=== PATIENT | female | born 1940 | race Caucasian/White ===

== ENCOUNTER → 2017-01-07 | Outpatient (CLI) | payer MEDICARE, OTHER ==
[2016-06-17 11:00] VITALS: BP 161/37
[~2017-01-07] MED LIST: ALBU1.25 IH; ALPR0.257 PO; AMLO5TAB2 PO; ASPI-482 PO; ATOR10TA60 PO; AZIT250T6 PO; CLOP75TA27 PO; Cefpodoxime Proxetil PO; DIPH25CA58 PO; DOXY100T PO; FURO20TA3 PO; FURO40TA4 PO; LEVO250T25 PO; LEVO750T31 PO; LISI-334 PO; METO25TA4 PO; PRED-220 PO; PRED5DRO6 OP; PRED5TAB PO; ROFL500T PO; SPIR25TA3 PO; TIOT18CA IH; VERA120C2 PO; VERA240C2 PO
--- NOTE | 2017-01-07 15:23 | RAD ---
Indication follow-up lung nodules. Noncontrast images of the chest were obtained and are compared to a study 07/30/2016. There are underlying emphysematous changes. There are occasional scattered calcified granulomas. Scattered areas of pleural-parenchymal scarring are seen similar to the previous exam. There is a soft tissue nodule, immediately adjacent to a calcification in the right upper lobe, image 108 series 3, measuring maximally approximately 11 mm in greatest dimension and is unchanged relative to the previous study. A tiny nodule, posterior medially in the right lower lobe measuring approximately 2 mm, image 234, is also unchanged. A new pulmonary nodule is not seen. No acute finding is apparent in the chest. Heavy atherosclerotic plaquing of the thoracic aorta is noted. There is no significant hilar or mediastinal adenopathy. Some coronary artery calcification is noted. Imaging through the upper abdomen demonstrates a right renal calculus. There is dilatation of the visualized upper abdominal aorta. It is dilated maximally to approximately 3.7 cm. It appears to have increased in size by approximately 2 to 3 mm relative to an examination 01/05/2015. IMPRESSION: Chronic changes in the chest. No acute finding seen. Stable pulmonary nodules in the right upper and right lower lobes. Continued surveillance imaging advised. Enlargement of the upper abdominal aorta to approximately 3.7 cm representing a slight increase when compared to a study 2 years ago. Right renal calculus PQRS Compliance Statement: One or more of the following individualized dose reduction techniques were utilized for this examination: 1. Automated exposure control 2. Adjustment of the mA and/or kV according to patient size 3. Use of iterative reconstruction technique
== END | disposition home or self-care (01) ==
LOC: CT 10:10
PROVIDERS: ATTEND Internal Medicine Pulmonary Disease
DX: R91.1 Solitary pulmonary nodule (principal); N20.0 Calculus of kidney
CPT/HCPCS: 71250

== ENCOUNTER 2017-03-03 05:55 | Inpatient (IN) | payer OTHER ==
[~2017-03-03] VITALS: Ht 152.4 cm; Wt 49.6 kg
[~2017-03-03 05:55] MED LIST changes: -ROFL500T PO; +ROFL500T7 PO
[2017-03-03] MEDS ORDERED: CONTRAST GIVEN MC PRN (06:30)
[2017-03-03] MEDS ORDERED: IV NORMAL SALINE 500ML BAG 500 ML IV ONE (06:30)
[2017-03-03] MEDS ORDERED: ONDANSETRON PF 4 MG/2 ML VIAL. IV ONE (06:30)
[2017-03-03 06:34] LABS: BASO # 0.1 x10^3/uL (0.0-0.2); BASO % 1 % (0-3); EOS % 1 % (0-3); HEMATOCRIT 32.1 % (36.0-47.0); HEMOGLOBIN 10.7 g/dL (12.0-15.5); LYMPH # 1.8 x10^3/uL (1.0-4.8); LYMPH % 17 % (24-48); MEAN CORPUSCULAR HEMOGLOBIN 30 pg (25-35); MEAN CORPUSCULAR HGB CONC 33 g/dL (31-37); MEAN CORPUSCULAR VOLUME 91 fL (79-100); MONO % 9 % (0-9); NEUT % 73 % (31-73); PLATELET COUNT 447 x10^3/uL (140-400); RED BLOOD COUNT 3.54 x10^6/uL (3.50-5.40); RED CELL DISTRIBUTION WIDTH 16.2 % (11.5-14.5); WHITE BLOOD COUNT 10.7 x10^3/uL (4.0-11.0)
[2017-03-03] MEDS: fentaNYL PF VIAL 100 MCG/2 ML VIAL IV PRN ×7 (06:40→18:01)
[2017-03-03 06:45] LABS: CALCIUM 8.6 mg/dL (8.5-10.1); CREATININE 0.8 mg/dL (0.6-1.0); GFR 69.6; POTASSIUM 3.4 mmol/L (3.5-5.1)
[2017-03-03 06:58] LABS: TOTAL BILIRUBIN 0.4 mg/dL (0.2-1.0)
[2017-03-03] MEDS ORDERED: IOHEXOL 300 MG/ML 75 ML VIAL IV ONE (07:00)
--- NOTE | 2017-03-03 07:12 | ED.ADGEN ---
Past Medical History Past Medical History: Arrhythmia, CAD, COPD, DVT, Hypertension, CO, Pneumonia, Other Additional Past Medical Histor: "rapid heart beat", SVT, macular degeneration, cataracts Past Surgical History: Hysterectomy, Other Additional Past Surgical Histo: cardiac cath, cardiac stent Additional Information: 10/11 PPD Alcohol Use: None Drug Use: None Adult General Chief Complaint Chief Complaint: ABDOMINAL PAIN HPI HPI Patient is a 76 year old W, hx CAD s/p CO, HTN, DVT, p/w c/o back pain and right-sided abd pain x 3 days, cramping, constipation x 5 days w/ nauseas. No vomting, no f/c, no diarrhea,, no focal w/n/t, no CP, SOB. No injuries, no travel or surgery. Poor intake. No prior symptoms. No complaints. Review of Systems Review of Systems Constitutional: Denies fever or chills. [] Eyes: Denies change in visual acuity. [] HENT: Denies nasal congestion or sore throat. [] Respiratory: Denies cough or shortness of breath. [] Cardiovascular: Denies chest pain or edema. [] GI: Back, abd pain, nausea. No diarrhea. : Denies dysuria. [] Musculoskeletal: Denies back pain or joint pain. [] Integument: Denies rash. [] Neurologic: Denies headache, focal weakness or sensory changes. [] Endocrine: Denies polyuria or polydipsia. [] Lymphatic: Denies swollen glands. [] Psychiatric: Denies depression or anxiety. [] Current Medications Current Medications Current Medications Medications (Trade) Dose Ordered Sig/Shaina Start Time Stop Time Status Last Admin Dose Admin Acetaminophen (Tylenol) 650 mg PRN Q4HRS PRN 03/03/17 10:30 03/04/17 10:29 Ceftriaxone Sodium 1 gm/ Sodium Chloride 50 ml @ 100 mls/hr Q24H 03/04/17 11:00 Ceftriaxone Sodium 50 ml @ 100 mls/hr 1X ONCE 03/03/17 10:15 03/03/17 10:44 DC 03/03/17 10:19 100 MLS/HR Diphenhydramine HCl (Benadryl) 25 mg 1X ONCE 03/03/17 10:15 03/03/17 10:20 DC 03/03/17 10:19 25 MG Fentanyl Citrate (Fentanyl 2ml Vial) 50 mcg PRN Q1HR PRN 03/03/17 10:30 03/04/17 10:29 Info (Do NOT chart on this entry -- for MONITORING) 1 each PRN DAILY PRN 03/03/17 06:30 03/05/17 06:29 Iohexol (Omnipaque 300 Mg/ml) 75 ml 1X ONCE 03/03/17 07:00 03/03/17 07:01 DC 03/03/17 07:01 75 ML Metoprolol Tartrate (Lopressor) 5 mg 1X ONCE 03/03/17 08:00 03/03/17 08:01 DC 03/03/17 08:10 5 MG Ondansetron HCl (Zofran) 4 mg PRN Q8HRS PRN 03/03/17 10:30 03/04/17 10:29 Sodium Chloride 500 ml @ 500 mls/hr 1X ONCE 03/03/17 06:30 03/03/17 07:29 DC 03/03/17 06:40 500 MLS/HR Allergies Allergies Allergies Coded Allergies Type Severity Reaction Last Updated Verified Sulfa (Sulfonamide Antibiotics) Allergy Intermediate 01/05/15 Yes cephalexin Allergy Intermediate Itching 06/17/16 Yes clarithromycin Allergy Intermediate 01/05/15 Yes levofloxacin Allergy Intermediate Itching 06/17/16 Yes Physical Exam Physical Exam Constitutional: Well developed, well nourished, uncomfortable, non-toxic appearance. [] HENT: Normocephalic, atraumatic, bilateral external ears normal, oropharynx moist, no oral exudates, nose normal. [] Eyes: PERRLA, EOMI, conjunctiva normal, no discharge. [] Neck: Normal range of motion, no tenderness, supple, no stridor. [] Cardiovascular:Heart rate regular rhythm, no murmur, S1, S2, no m/r/g. [] Lungs & Thorax: Bilateral breath sounds clear to auscultation, no w/r/r, no crepitus or TTP. [] Abdomen: Bowel sounds diminished, soft, TTP right abd, no r/r/g, no masses, no pulsatile masses. [] Skin: Warm, dry, no erythema, no rash. [] Back: No tenderness, no CVA tenderness. [] Extremities: No tenderness, no cyanosis, no clubbing, ROM intact, no edema. [] Neurologic: Alert and oriented X 3, normal motor function, normal sensory function, no focal deficits noted. [] Psychologic: Affect normal, judgement normal, mood normal. [] Current Patient Data Vital Signs Vital Signs Date Time Temp Pulse Resp B/P (MAP) Pulse Ox O2 Delivery O2 Flow Rate FiO2 03/03/17 09:20 16 03/03/17 08:10 86 224/105 03/03/17 06:24 98.1 95 Nasal Cannula 3.0 98.1 Lab Values Laboratory Tests Test 03/03/17 06:12 03/03/17 08:20 White Blood Count 10.7 x10^3/uL (4.0-11.0) Red Blood Count 3.54 x10^6/uL (3.50-5.40) Hemoglobin 10.7 g/dL (12.0-15.5) L Hematocrit 32.1 % (36.0-47.0) L Mean Corpuscular Volume 91 fL (79-100) Mean Corpuscular Hemoglobin 30 pg (25-35) Mean Corpuscular Hemoglobin Concent 33 g/dL (31-37) Red Cell Distribution Width 16.2 % (11.5-14.5) H Platelet Count 447 x10^3/uL (140-400) H Neutrophils (%) (Auto) 73 % (31-73) Lymphocytes (%) (Auto) 17 % (24-48) L Monocytes (%) (Auto) 9 % (0-9) Eosinophils (%) (Auto) 1 % (0-3) Basophils (%) (Auto) 1 % (0-3) Neutrophils # (Auto) 7.8 x10^3uL (1.8-7.7) H Lymphocytes # (Auto) 1.8 x10^3/uL (1.0-4.8) Monocytes # (Auto) 0.9 x10^3/uL (0.0-1.1) Eosinophils # (Auto) 0.1 x10^3/uL (0.0-0.7) Basophils # (Auto) 0.1 x10^3/uL (0.0-0.2) Sodium Level 141 mmol/L (136-145) Potassium Level 3.4 mmol/L (3.5-5.1) L Chloride Level 101 mmol/L (98-107) Carbon Dioxide Level 33 mmol/L (21-32) H Anion Gap 7 (6-14) Blood Urea Nitrogen 18 mg/dL (7-20) Creatinine 0.8 mg/dL (0.6-1.0) Estimated GFR (Cockcroft-Gault) 69.6 BUN/Creatinine Ratio 23 (6-20) H Glucose Level 111 mg/dL (70-99) H Lactic Acid Level 1.2 mmol/L (0.4-2.0) Calcium Level 8.6 mg/dL (8.5-10.1) Total Bilirubin 0.4 mg/dL (0.2-1.0) Aspartate Amino Transferase (AST) 23 U/L (15-37) Alanine Aminotransferase (ALT) 28 U/L (14-59) Alkaline Phosphatase 96 U/L (46-116) Troponin I Quantitative < 0.017 ng/mL (0.000-0.055) BR-Urd-Y-Type Natriuretic Peptide 379 pg/mL (0-449) Total Protein 6.0 g/dL (6.4-8.2) L Albumin 3.0 g/dL (3.4-5.0) L Albumin/Globulin Ratio 1.0 (1.0-1.7) Lipase 169 U/L (73-393) Urine Collection Type Unknown Urine Color Yellow Urine Clarity Clear Urine pH 7.5 Urine Specific [place] >=1.030 Urine Protein 100 mg/dL (NEG-TRACE) Urine Glucose (UA) Negative mg/dL (NEG) Urine Ketones (Stick) Negative mg/dL (NEG) Urine Blood Negative (NEG) Urine Nitrite Negative (NEG) Urine Bilirubin Negative (NEG) Urine Urobilinogen Dipstick 0.2 mg/dL (0.2 mg/dL) Urine Leukocyte Esterase Moderate (NEG) Urine RBC Occ /HPF (0-2) Urine WBC 20-40 /HPF (0-4) Urine Squamous Epithelial Cells Mod /LPF Urine Bacteria Few /HPF (0-FEW) Urine Hyaline Casts Few /HPF Urine Mucus Slight /LPF Laboratory Tests 03/03/17 06:12 Laboratory Tests 03/03/17 06:12 EKG EKG EC: Sinus, 79 bmp, QTC 428, QRS 78, OR 150, baseline artifact, contour abnormalities in inf leads. Abnormal ECG, no STEMI. As interp by me. Radiology/Procedures Radiology/Procedures [][facility] [address] [place] [address] IMAGING REPORT Signed PATIENT: HIWOT NAVARRO ACCOUNT: [id number] : 1940 LOCATION: ER AGE: 76 SEX: F EXAM STATUS: REG ER ORD. PHYSICIAN: REMINGTON CLEMENTE DO REASON: abd pain PROCEDURE: CT ABD PELV W/ IV CONTRST ONLY Indication abdominal pain. Axial images through the abdomen and pelvis were obtained. Approximately 75 cc of Omnipaque 300 was administered intravenously. No oral contrast was administered. Note is made of a previous examination 11/23/2012. The lung bases are clear. There is a small left umbilical hernia containing only fat and appearing uncomplicated. The liver and spleen appear unremarkable and the gallbladder appears grossly normal. There is unchanged enlargement of the left adrenal gland. Acute finding is not seen involving either kidney. A left renal cyst is noted. There is an infrarenal abdominal aortic aneurysm measuring 4 cm in greatest dimension. The aneurysm has increased in size by approximately 6 mm relative to the previous exam. The pancreas appears unremarkable. An acute finding in the abdomen is not seen. Occasional diverticula are seen associated with the large bowel. Active inflammation is not seen. Acute finding in the pelvis is not apparent. IMPRESSION: No acute finding seen in the abdomen or pelvis. 4 cm abdominal aortic aneurysm DICTATED and SIGNED BY: PAPO MATHEW MD DATE: 03/03/17719 CC: REMINGTON CLEMENTE DO; LEILANI DELUCA Jr, MD ~ Course & Med Decision Making Course & Med Decision Making Pertinent Labs and Imaging studies reviewed. (See chart for details) Patient required multiple doses of medication for abdominal pain in the emergency department, nausea improved after a dose of Zofran. CT imaging not reveal any evidence of acutely concerning findings, however this patient's pain has persisted, after reevaluation, although her laboratory studies and imaging did not reveal any concerning findings, patient is agreeable for admission to the hospital for continued management. Patient with few bacteria noted in the urine, 2040 WBCs, no recent antibiotic use, therefore will treat with IV antibiotics, continue clear liquid diet. Patient agreeable with plan, as is at bedside, findings as above discussed with Dr. Schofield of internal medicine, patient accepted to his service as a full admission to the medical telemetry floor with monitoring, symptom management, and repeat laboratory studies as stated. Dragon Disclaimer Dragon Disclaimer This electronic medical record was generated, in whole or in part, using a voice recognition dictation system. Departure Impression: Primary Impression: Abdominal pain Disposition: ADMITTED INPATIENT Admitting Physician: Nancy Schofield Condition: IMPROVED REMINGTON CLEMENTE DO March 03, 2017 07:12
--- NOTE | 2017-03-03 07:32 | RAD ---
Indication abdominal pain. Axial images through the abdomen and pelvis were obtained. Approximately 75 cc of Omnipaque 300 was administered intravenously. No oral contrast was administered. Note is made of a previous examination 11/23/2012. The lung bases are clear. There is a small left umbilical hernia containing only fat and appearing uncomplicated. The liver and spleen appear unremarkable and the gallbladder appears grossly normal. There is unchanged enlargement of the left adrenal gland. Acute finding is not seen involving either kidney. A left renal cyst is noted. There is an infrarenal abdominal aortic aneurysm measuring 4 cm in greatest dimension. The aneurysm has increased in size by approximately 6 mm relative to the previous exam. The pancreas appears unremarkable. An acute finding in the abdomen is not seen. Occasional diverticula are seen associated with the large bowel. Active inflammation is not seen. Acute finding in the pelvis is not apparent. IMPRESSION: No acute finding seen in the abdomen or pelvis. 4 cm abdominal aortic aneurysm
--- NOTE | 2017-03-03 07:37 | RAD ---
Indication abdominal pain. A single view of the chest as well as flat and upright films of the abdomen were obtained. The chest is compared to a study 06/11/2016. The heart and pulmonary vessels appear normal. The lungs are clear. There is no significant pleural fluid or pneumothorax. There is no free air. The abdominal gas pattern is normal. Vascular calcification is noted. An acute finding in the abdomen is not apparent on plain films. IMPRESSION: No acute finding seen in the chest or abdomen on plain films
--- NOTE | 2017-03-03 07:53 | EKG ---
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
[2017-03-03] MEDS ORDERED: METOPROLOL TARTRATE 5 MG/5 ML VIAL. IVP ONE (08:00)
--- NOTE | 2017-03-03 08:08 | ACF ---
Admission Forms Criteria ABDOMINAL PAIN Clinical Indications for Admission to Inpatient Care (Place 'X' for any and all applicable criteria): Admission is indicated for ANY ONE of the following(1)(2)(3)(4)(5): [ ]I. Inpatient admission required rather than observation care (Also use Abdominal Pain: Observation Care, as appropriate) because of ANY ONE of the following: [ ]a) Severe pain requiring acute inpatient management [ ]b) Identification of etiology/finding that requires inpatient care (eg, aortic dissection, free air) [ ]c) Absent bowel sounds with complete ileus(6) [ ]d) Suspected toxic megacolon [ ]e) Severe electrolyte abnormalities requiring inpatient care [ ]f) High fever or infection requiring inpatient admission as indicated by ANY ONE of following(7)(8): [ ] i) Appropriate outpatient or observational care antimicrobial treatment unavailable, not effective, or not feasible [ ] ii) Documented bacteremia [ ] iii) Temperature > 104.9 degrees F (oral) [ ] iv) T >103.1 F (oral) or < 96.8 F(rectal) that does not respond to all emergency treatment measures [ ]g) Signs of intestinal obstruction [B] [ ]h) Hemodynamic instability [ ]i) IV fluid to replace significant ongoing losses (greater than 3 L/m2 per day) (12)(13) [ ]j) Percutaneous or open drainage (eg, abscess, biliary tract ) procedures [ ]k) Parenteral nutrition regimen that must be implemented on inpatient basis [ ]l) Other condition,treatment or monitoring requiring inpatient admission. [ ]II. Peritoneal signs present [ ]III. Surgery needed that cannot be performed on an ambulatory basis. [ ]IV. Evaluation requires patient to not eat or drink for extended period ( eg, more than 24 hours). [ ]V. Contraindications and/or Inappropriate clinical situations for Observational Care in patients with abdominal pain, when ANY ONE of the following is required: [ ]a) Thorough evaluation is required to prevent catastrophic events due to delays in diagnosing (e.g.Mesenteric ischemia) 1,3 [ ]b) Patient with severe pathology or with chronic symptoms unlikely to improve in the ED stay (3) [X]. General contraindications and/or Inappropriate clinical situations for Observational Care in patients with abdominal pain, when ANY ONE of the following is required: [ ]a) Prediction of prolongation of LOS based on ANY ONE of the following may be considered as a contraindication for observational care 2, 3, 4, 5, 6, 7, 8, 9, 10, 11 [ ]i) Age > 65 yrs. [ ]ii) Patient arriving by ambulance [ ]iii) Patient with high acuity [ ]iv) Patient requiring vital sign monitoring [ ]v) Patient on IV medication [X]b) Systolic blood pressures 180mmHg 3,12 [ ]c) Patient with altered mental status including delirium and other alteration of consciousness, (3) [ ]d) Patient whose discharge disposition will be to a halfway home or rehabilitation home should not be managed in Emergency Department Observation Unit. CMS rule requires 3 days hospital stay before such placement.3,13 [ ]e) Patient with failure to thrive due to broad array of etiologies 3,16,17 [ ]f) Inability to ambulate 3,14 Extended stay beyond goal length of stay may be needed for(2)(3): [ ]a) Persistent abdominal pain with suspected intra-abdominal process [ ]b) Diagnosed condition requiring continued stay (e.g., pancreatitis, complicated diverticulitis) [ ]c) Surgery (e.g., colectomy) The original [facility] content created by [employer] has been revised. The portions of the content which have been revised are identified through the use of italic text or in bold, and [facility] has neither reviewed nor approved the modified material.All other unmodified content is copyright [employer]. Please see references footnoted in the original [facility] edition 2016 Admission Criteria Met?: Yes ARIANA JACINTO March 03, 2017 08:08
[2017-03-03 08:35] LABS: BILIRUBIN,URINE NEGATIVE (NEG); GLUCOSE,URINE NEGATIVE (NEG); NITRITE,URINE NEGATIVE (NEG); PH,URINE 7.5; PROTEIN,URINE 100 mg/dL (NEG-TRACE); UROBILINOGEN,URINE 0.2 mg/dL (0.2 mg/dL)
[2017-03-03 09:01] LABS: BACTERIA,URINE FEW /HPF (0-FEW); RBC,URINE OCC /HPF (0-2); SQUAMOUS EPITHELIAL CELL,UR MOD /LPF; WBC,URINE 20-40 /HPF (0-4)
[2017-03-03] MEDS ORDERED: diphenhydrAMINE 50 MG/ML VIAL IVP ONE (10:15)
[2017-03-03] MEDS ORDERED: ACETAMINOPHEN 325 MG TABLET. PO PRN (10:30)
[2017-03-03] MEDS ORDERED: ONDANSETRON PF 4 MG/2 ML VIAL. IV PRN (10:30)
[2017-03-03 12:00] VITALS: BP 181/49
--- NOTE | 2017-03-03 12:00 | RAD ---
Right upper quadrant abdominal ultrasound, 03/03/2017: History: Right-sided abdominal pain The exam was partially compromised by patient difficulty in cooperation. The gallbladder contains several gallstones. The gallbladder wall is not thickened. The common hepatic duct is of normal caliber. No hepatic mass is identified. The visualized portions of the pancreas and right kidney are unremarkable. IMPRESSION: Cholelithiasis
--- NOTE | 2017-03-03 14:50 | HP ---
ADMIT DATE: 03/03/2017 CHIEF COMPLAINT: Abdominal pain. HISTORY OF PRESENT ILLNESS: The patient is a pleasant 76-year-old female who has abdominal pain that has been occurring for several days. It radiates to the back. She tried taking some home medications, but that was not working. She has also been constipated for 5 days. I discussed the case with the ER physician. We are going to admit the patient and consult Gastroenterology. She will be made n.p.o. PAST MEDICAL HISTORY: Arrhythmias, coronary artery disease, COPD, DVT, hypertension, myocardial infarction, pneumonia, SVT, macular degeneration, cataracts, hysterectomy, cardiac catheterization, and cardiac stents. ALLERGIES: SULFA, CLARITHROMYCIN, LEVAQUIN, AND CEPHALEXIN. FAMILY HISTORY: Coronary artery disease. SOCIAL HISTORY: She does not drink, smoke, or take drugs. MEDICATIONS: Reviewed. Please refer to the MRAD. REVIEW OF SYSTEMS: GENERAL: No history of weight change, weakness, or fevers. SKIN: No bruising, hair changes, or rashes. EYES: No blurred, double, or loss of vision. NOSE AND THROAT: No history of nosebleeds, hoarseness, or sore throat. HEART: No history of palpitations, chest pain, or shortness of breath on exertion. LUNGS: Denies cough, hemoptysis, wheezing, or shortness of breath. GASTROINTESTINAL: She complains of abdominal pain. GENITOURINARY: No history of frequency, urgency, hesitancy, or nocturia. NEUROLOGIC: Denies history of numbness, tingling, tremor, or weakness. PSYCHIATRIC: No history of panic, anxiety, or depression. ENDOCRINE: No history of heat or cold intolerance, polyuria, or polydipsia. EXTREMITIES: Denies muscle weakness, joint pain, pain on walking, or stiffness. PHYSICAL EXAMINATION: VITAL SIGNS: Temperature afebrile, pulse 67, respirations 18, and blood pressure 144/90. GENERAL: She is alert, cooperative, weak, complaining of pain. HEART: Normal S1, S2. LUNGS: Clear. ABDOMEN: Soft, decreased bowel sounds, tender in the epigastrium. EXTREMITIES: No edema. SKIN: No rashes. ENDOCRINE: No thyromegaly. LYMPHATICS: No cervical nodes. HEMATOPOIETIC: No bruising. LABORATORY DATA: White count 10, hemoglobin 10, and platelets 447. Electrolytes: Sodium 141, potassium 3.4, chloride 101, bicarbonate 33, BUN 18, creatinine 0.8, and glucose 111. Troponin is 0. Urinalysis: Moderate leukocyte esterase and 20 to 40 white cells. ASSESSMENT AND PLAN: Abdominal pain with an incidental finding of urinary tract infection. The patient has been admitted. We will give her IV fluids, IV antibiotics. Consult Gastroenterology. Continue home medicines, p.r.n. narcotics, and frequent labs. ANTON LEBRON DO DR: JOVANI/humble JOB#: [id number] / [id number]
[2017-03-03 15:00] VITALS: BP 170/63
--- NOTE | 2017-03-03 15:02 | PDOC2 ---
GI CONSULT Reason For Consult: Abd pain HPI: HPI: 76 y/o female who we were asked to see re: abd pain. She says she's having a hard time gathering her thoughts. She believes the pain, located mostly in the right lower abdomen, began awhile ago, but she attributed it to sciatic nerve pain. Additionally, she was constipated, took Miralax, and had a "blow out" on Tuesday w/ some improvement in her pain, but it worsened. She says she lost about 7 pounds as a result of stooling. No change in appetite. No n/v, no reflux/heartburn. No hematochezia or melena that she's aware of, although she is visually impaired. Reviewed our office records. She had a colonoscopy w/ Dr. Brannon in 2009 which revealed a 12mm adenomatous polyp in the transverse colon, three sessile (5mm, [id number], and 5mm) polyps in the hepatic flexure - pathology w/ tubular adenoma and sessile serrated polyp, and a 6mm hyperplastic polyp in the rectum. Additionally, sigmoid diverticulosis and Grade 1 internal hemorrhoids were noted. In 2013, she had an EGD and colonoscopy w/ Dr. Siddiqui. She reports both were normal; I cannot view these reports. No NSAIDs, takes Tylenol. H/o C Diff. Imaging as below w/ enlarging AAA and cholelithiasis. PMH: PMH: CAD w/ stent (off Plavix, on ASA), HTN, COPD, TIA, cervical cancer, hypothyroidism, fibrocystic breast disease, shingles, myeloproliferative disorder, colon polyps, C Diff, hysterectomy, bilateral oophorectomy, breast biopsy FH: Family History: No pertinent hx Social History: Smoke: <1 pack per day ALCOHOL: none Drugs: None ROS: GEN: Denies fevers, chills, sweats HEENT: +visually impaired CV: Denies chest pain RESP: +SOA GI: Per HPI : Denies hematuria, dysuria ENDO: +weight loss NEURO: Denies confusion, dizziness MSK: Denies weakness, joint pain/swelling SKIN: Denies jaundice, pruritus Vitals: Vitals: Vital Signs Date Time Temp Pulse Resp B/P (MAP) Pulse Ox O2 Delivery O2 Flow Rate FiO2 03/03/17 13:11 Nasal Cannula 03/03/17 12:00 63 20 181/49 (93) 98 4.0 03/03/17 06:24 98.1 98.1 Labs: Labs: Laboratory Tests Test 03/03/17 06:12 03/03/17 08:20 03/03/17 13:15 White Blood Count 10.7 x10^3/uL (4.0-11.0) Red Blood Count 3.54 x10^6/uL (3.50-5.40) Hemoglobin 10.7 g/dL (12.0-15.5) Hematocrit 32.1 % (36.0-47.0) Mean Corpuscular Volume 91 fL (79-100) Mean Corpuscular Hemoglobin 30 pg (25-35) Mean Corpuscular Hemoglobin Concent 33 g/dL (31-37) Red Cell Distribution Width 16.2 % (11.5-14.5) Platelet Count 447 x10^3/uL (140-400) Neutrophils (%) (Auto) 73 % (31-73) Lymphocytes (%) (Auto) 17 % (24-48) Monocytes (%) (Auto) 9 % (0-9) Eosinophils (%) (Auto) 1 % (0-3) Basophils (%) (Auto) 1 % (0-3) Neutrophils # (Auto) 7.8 x10^3uL (1.8-7.7) Lymphocytes # (Auto) 1.8 x10^3/uL (1.0-4.8) Monocytes # (Auto) 0.9 x10^3/uL (0.0-1.1) Eosinophils # (Auto) 0.1 x10^3/uL (0.0-0.7) Basophils # (Auto) 0.1 x10^3/uL (0.0-0.2) Sodium Level 141 mmol/L (136-145) Potassium Level 3.4 mmol/L (3.5-5.1) Chloride Level 101 mmol/L (98-107) Carbon Dioxide Level 33 mmol/L (21-32) Anion Gap 7 (6-14) Blood Urea Nitrogen 18 mg/dL (7-20) Creatinine 0.8 mg/dL (0.6-1.0) Estimated GFR (Cockcroft-Gault) 69.6 BUN/Creatinine Ratio 23 (6-20) Glucose Level 111 mg/dL (70-99) Lactic Acid Level 1.2 mmol/L (0.4-2.0) Calcium Level 8.6 mg/dL (8.5-10.1) Total Bilirubin 0.4 mg/dL (0.2-1.0) Aspartate Amino Transf (AST/SGOT) 23 U/L (15-37) Alanine Aminotransferase (ALT/SGPT) 28 U/L (14-59) Alkaline Phosphatase 96 U/L (46-116) Troponin I Quantitative < 0.017 ng/mL (0.000-0.055) < 0.017 ng/mL (0.000-0.055) [place]-Grd-L-Type Natriuretic Peptide 379 pg/mL (0-449) Total Protein 6.0 g/dL (6.4-8.2) Albumin 3.0 g/dL (3.4-5.0) Albumin/Globulin Ratio 1.0 (1.0-1.7) Lipase 169 U/L (73-393) Urine Collection Type Unknown Urine Color Yellow Urine Clarity Clear Urine pH 7.5 Urine Specific [place] >=1.030 Urine Protein 100 mg/dL (NEG-TRACE) Urine Glucose (UA) Negative mg/dL (NEG) Urine Ketones (Stick) Negative mg/dL (NEG) Urine Blood Negative (NEG) Urine Nitrite Negative (NEG) Urine Bilirubin Negative (NEG) Urine Urobilinogen Dipstick 0.2 mg/dL (0.2 mg/dL) Urine Leukocyte Esterase Moderate (NEG) Urine RBC Occ /HPF (0-2) Urine WBC 20-40 /HPF (0-4) Urine Squamous Epithelial Cells Mod /LPF Urine Bacteria Few /HPF (0-FEW) Urine Hyaline Casts Few /HPF Urine Mucus Slight /LPF Allergies: Coded Allergies: Sulfa (Sulfonamide Antibiotics) (Verified Allergy, Intermediate, 01/05/15) swelling cephalexin (Verified Allergy, Intermediate, Itching, 06/17/16) clarithromycin (Verified Allergy, Intermediate, 01/05/15) itches levofloxacin (Verified Allergy, Intermediate, Itching, 06/17/16) OK IF PRETREAT WITH BENADRYL Medications: Current Medications Medications (Trade) Dose Ordered Sig/Shaina Route PRN Reason Start Time Stop Time Status Last Admin Dose Admin Fentanyl Citrate (Fentanyl 2ml Vial) 25 mcg PRN Q15MIN PRN IV PAIN GREATER THAN 3/10 03/03/17 06:15 03/04/17 06:14 03/03/17 08:49 Ondansetron HCl (Zofran) 4 mg 1X ONCE IV 03/03/17 06:30 03/03/17 06:31 DC 03/03/17 06:40 Sodium Chloride 500 ml @ 500 mls/hr 1X ONCE IV 03/03/17 06:30 03/03/17 07:29 DC 03/03/17 06:40 Iohexol (Omnipaque 300 Mg/ml) 75 ml 1X ONCE IV 03/03/17 07:00 03/03/17 07:01 DC 03/03/17 07:01 Metoprolol Tartrate (Lopressor) 5 mg 1X ONCE IVP 03/03/17 08:00 03/03/17 08:01 DC 03/03/17 08:10 Ceftriaxone Sodium 50 ml @ 100 mls/hr 1X ONCE IV 03/03/17 10:15 03/03/17 10:44 DC 03/03/17 10:19 Diphenhydramine HCl (Benadryl) 25 mg 1X ONCE IVP 03/03/17 10:15 03/03/17 10:20 DC 03/03/17 10:19 Ondansetron HCl (Zofran) 4 mg PRN Q8HRS PRN IV NAUSEA/VOMITING 03/03/17 10:30 03/04/17 10:29 03/03/17 12:21 Fentanyl Citrate (Fentanyl 2ml Vial) 50 mcg PRN Q1HR PRN IV PAIN 03/03/17 10:30 03/04/17 10:29 03/03/17 12:25 Imaging: Imaging: Acute Abd Series IMPRESSION: No acute finding seen in the chest or abdomen on plain films. CT A/P w/ IV contrast The lung bases are clear. There is a small left umbilical hernia containing only fat and appearing uncomplicated. The liver and spleen appear unremarkable and the gallbladder appears grossly normal. There is unchanged enlargement of the left adrenal gland. Acute finding is not seen involving either kidney. A left renal cyst is noted. There is an infrarenal abdominal aortic aneurysm measuring 4 cm in greatest dimension. The aneurysm has increased in size by approximately 6 mm relative to the previous exam. The pancreas appears unremarkable. An acute finding in the abdomen is not seen. Occasional diverticula are seen associated with the large bowel. Active inflammation is not seen. Acute finding in the pelvis is not apparent. IMPRESSION: No acute finding seen in the abdomen or pelvis. 4 cm abdominal aortic aneurysm. RUQ US The exam was partially compromised by patient difficulty in cooperation. The gallbladder contains several gallstones. The gallbladder wall is not thickened. The common hepatic duct is of normal caliber. No hepatic mass is identified. The visualized portions of the pancreas and right kidney are unremarkable. IMPRESSION: Cholelithiasis PE: GEN: NAD, thin HEENT: Atraumatic LUNGS: decreased, occ soft wheeze, nasal cannula HEART: S1S2 ABD: BS+, mostly RLQ tenderness EXTREMITY: No edema SKIN: No rashes, no jaundice NEURO/PSYCH: A & O 3 A/P: A/P: RLQ pain AAA - increasing in size Cholelithiasis Constipation CRC screen, h/o colon polyps -reports normal colonoscopy w/ Dr. Siddiqui in 2013, previously note diverticulosis and hemorrhoids CAD, COPD, visual impairment, h/o myeloproliferative disorder Anemia -Hgb stable by comparison -- D/w Dr. Cagle. Vascular consult for enlarging AAA w/ pain. Will add Miralax considering constipation. FLORINA SCHUMACHER March 03, 2017 15:02
--- NOTE | 2017-03-03 15:50 | PDOC2 ---
CONSULT Date of Consult Date of Consult DATE: 03/03/17 TIME: 15:45 Past Medical History Cardiovascular: CAD, HTN, Other Pulmonary: COPD, Pneumonia CENTRAL NERVOUS SYSTEM: Other GI: No pertinent hx, Other Heme/Onc: Anemia NOS, Other Hepatobiliary: No pertinent hx Psych: No pertinent hx Musculoskeletal: Osteoarthritis, Other Rheumatologic: No pertinent hx Infectious disease: No pertinent hx Renal/: No pertinent hx Endocrine: No pertinent hx Past Surgical History Past Surgical History: Cataract Removal, Hysterectomy, Other Family History Family History: Hypertension Social History <1 pack per day ALCOHOL: none Drugs: None Lives: with Family Domestic Violence: Neg Current Problem List Problem List Problems Medical Problems: (1) Abdominal pain Status: Acute Current Medications Current Medications Current Medications Fentanyl Citrate (Fentanyl 2ml Vial) 25 mcg PRN Q15MIN PRN IV PAIN GREATER THAN 3/10 Last administered on 03/03/17 08:49; Start 03/03/17 at 06:15; Stop at 06:14 Ondansetron HCl (Zofran) 4 mg 1X ONCE IV Last administered on 03/03/17 06:40 ; Start 03/03/17 at 06:30; Stop 03/03/17 at 06:31; Status DC Sodium Chloride 500 ml @ 500 mls/hr 1X ONCE IV Last administered on 06:40; Start 03/03/17 at 06:30; Stop 03/03/17 at 07:29; Status DC Iohexol (Omnipaque 300 Mg/ml) 75 ml 1X ONCE IV Last administered on 03/03/17 07:01; Start 03/03/17 at 07:00; Stop 03/03/17 at 07:01; Status DC Info (Do NOT chart on this entry -- for MONITORING) 1 each PRN DAILY PRN MC SEE COMMENTS; Start 03/03/17 at 06:30; Stop 03/05/17 at 06:29 Metoprolol Tartrate (Lopressor) 5 mg 1X ONCE IVP Last administered on 08:10; Start 03/03/17 at 08:00; Stop 03/03/17 at 08:01; Status DC Ceftriaxone Sodium 50 ml @ 100 mls/hr 1X ONCE IV Last administered on 10:19; Start 03/03/17 at 10:15; Stop 03/03/17 at 10:44; Status DC Ceftriaxone Sodium 1 gm/ Sodium Chloride 50 ml @ 100 mls/hr Q24H IV ; Start at 11:00 Diphenhydramine HCl (Benadryl) 25 mg 1X ONCE IVP Last administered on 10:19; Start 03/03/17 at 10:15; Stop 03/03/17 at 10:20; Status DC Ondansetron HCl (Zofran) 4 mg PRN Q8HRS PRN IV NAUSEA/VOMITING Last administered on 03/03/17 12:21; Start 03/03/17 at 10:30; Stop 03/04/17 at 10:29 Fentanyl Citrate (Fentanyl 2ml Vial) 50 mcg PRN Q1HR PRN IV PAIN Last administered on 03/03/17 12:25; Start 03/03/17 at 10:30; Stop 03/04/17 at 10:29 Acetaminophen (Tylenol) 650 mg PRN Q4HRS PRN PO FEVER; Start 03/03/17 at 10:30 ; Stop 03/04/17 at 10:29 Polyethylene Glycol (miraLAX PACKET) 17 gm DAILY PO ; Start 03/03/17 at 15:00 Famotidine (Pepcid) 20 mg QHS PO ; Start 03/03/17 at 21:00 Active Scripts Active Prednisone 10 Mg Tablet 10 Mg PO UD Take 3 tablets by mouth daily for 3 days, then take 2 tablets by mouth daily for 3 days, then take 1 tablet by mouth daily for 3 days, then resume home dose. Levaquin (Levofloxacin) 750 Mg Tablet 1 Tab PO QODAY Reported Azithromycin Tablet (Azithromycin) 250 Mg Tablet 250 Mg PO DAILY Spironolactone 25 Mg Tablet 1 Tab PO DAILY Atorvastatin Calcium 10 Mg Tablet 1 Tab PO HS NEXT DOSE: 07/15/15 PM Amlodipine Besylate 5 Mg Tablet 5 Mg PO DAILY NEXT DOSE: 07/16/15 AM Prednisolone Acetate 5 Ml Drops.susp 5 Ml OP Furosemide 20 Mg Tablet Unknown Dose PO DAILY NEXT DOSE: 07/16/15 AM Prednisone 5 Mg Tablet 10 Mg PO QODAY NEXT DOSE: START 07/16/15 40MG DAILY X2 DAYS 30MG DAILY X2 DAYS 20MG DAILY X2 DAYS 10MG DAILY X2 DAYS STOP TAKING AFTER LAST PILL Plavix (Clopidogrel Bisulfate) 75 Mg Tablet 75 Mg PO DAILY NEXT DOSE: 07/16/15 AM Aspir 81 (Aspirin) 81 Mg Tablet.dr 81 Mg PO DAILY NEXT DOSE: 07/16/15 AM Metoprolol Tartrate 25 Mg Tablet 12.5 Mg PO DAILY NEXT DOSE: 07/16/15 AM Alprazolam 0.25 Mg Tab.rapdis 0.25 Mg PO PRN NEXT DOSE: 07/15/15 AFTERNOON Daliresp (Roflumilast) 500 Mcg Tablet 250 Mcg PO DAILY NEXT DOSE: 07/16/15 AM Albuterol Sulfate Neb Soln (Albuterol Sulfate) 1.25 Mg/3 Ml Vial.neb 1.25 Mg IH Q3HRS PRN Spiriva (Tiotropium Mcguffey) 18 Mcg Cap.w.dev 1 Puff IH DAILY Allergies Allergies: Coded Allergies: Sulfa (Sulfonamide Antibiotics) (Verified Allergy, Intermediate, 01/05/15) swelling cephalexin (Verified Allergy, Intermediate, Itching, 06/17/16) clarithromycin (Verified Allergy, Intermediate, 01/05/15) itches levofloxacin (Verified Allergy, Intermediate, Itching, 06/17/16) OK IF PRETREAT WITH BENADRYL Vitals VITALS Vital Signs Date Time Temp Pulse Resp B/P (MAP) Pulse Ox O2 Delivery O2 Flow Rate FiO2 03/03/17 15:00 97.7 86 20 170/63 (98) 97 Nasal Cannula 4.0 97.7 Labs Labs Laboratory Tests Test 03/03/17 06:12 03/03/17 08:20 03/03/17 13:15 White Blood Count 10.7 x10^3/uL (4.0-11.0) Red Blood Count 3.54 x10^6/uL (3.50-5.40) Hemoglobin 10.7 g/dL (12.0-15.5) Hematocrit 32.1 % (36.0-47.0) Mean Corpuscular Volume 91 fL (79-100) Mean Corpuscular Hemoglobin 30 pg (25-35) Mean Corpuscular Hemoglobin Concent 33 g/dL (31-37) Red Cell Distribution Width 16.2 % (11.5-14.5) Platelet Count 447 x10^3/uL (140-400) Neutrophils (%) (Auto) 73 % (31-73) Lymphocytes (%) (Auto) 17 % (24-48) Monocytes (%) (Auto) 9 % (0-9) Eosinophils (%) (Auto) 1 % (0-3) Basophils (%) (Auto) 1 % (0-3) Neutrophils # (Auto) 7.8 x10^3uL (1.8-7.7) Lymphocytes # (Auto) 1.8 x10^3/uL (1.0-4.8) Monocytes # (Auto) 0.9 x10^3/uL (0.0-1.1) Eosinophils # (Auto) 0.1 x10^3/uL (0.0-0.7) Basophils # (Auto) 0.1 x10^3/uL (0.0-0.2) Sodium Level 141 mmol/L (136-145) Potassium Level 3.4 mmol/L (3.5-5.1) Chloride Level 101 mmol/L (98-107) Carbon Dioxide Level 33 mmol/L (21-32) Anion Gap 7 (6-14) Blood Urea Nitrogen 18 mg/dL (7-20) Creatinine 0.8 mg/dL (0.6-1.0) Estimated GFR (Cockcroft-Gault) 69.6 BUN/Creatinine Ratio 23 (6-20) Glucose Level 111 mg/dL (70-99) Lactic Acid Level 1.2 mmol/L (0.4-2.0) Calcium Level 8.6 mg/dL (8.5-10.1) Total Bilirubin 0.4 mg/dL (0.2-1.0) Aspartate Amino Transf (AST/SGOT) 23 U/L (15-37) Alanine Aminotransferase (ALT/SGPT) 28 U/L (14-59) Alkaline Phosphatase 96 U/L (46-116) Troponin I Quantitative < 0.017 ng/mL (0.000-0.055) < 0.017 ng/mL (0.000-0.055) [place]-Blv-E-Type Natriuretic Peptide 379 pg/mL (0-449) Total Protein 6.0 g/dL (6.4-8.2) Albumin 3.0 g/dL (3.4-5.0) Albumin/Globulin Ratio 1.0 (1.0-1.7) Lipase 169 U/L (73-393) Urine Collection Type Unknown Urine Color Yellow Urine Clarity Clear Urine pH 7.5 Urine Specific [place] >=1.030 Urine Protein 100 mg/dL (NEG-TRACE) Urine Glucose (UA) Negative mg/dL (NEG) Urine Ketones (Stick) Negative mg/dL (NEG) Urine Blood Negative (NEG) Urine Nitrite Negative (NEG) Urine Bilirubin Negative (NEG) Urine Urobilinogen Dipstick 0.2 mg/dL (0.2 mg/dL) Urine Leukocyte Esterase Moderate (NEG) Urine RBC Occ /HPF (0-2) Urine WBC 20-40 /HPF (0-4) Urine Squamous Epithelial Cells Mod /LPF Urine Bacteria Few /HPF (0-FEW) Urine Hyaline Casts Few /HPF Urine Mucus Slight /LPF Laboratory Tests Test 03/03/17 06:12 03/03/17 08:20 03/03/17 13:15 White Blood Count 10.7 x10^3/uL (4.0-11.0) Red Blood Count 3.54 x10^6/uL (3.50-5.40) Hemoglobin 10.7 g/dL (12.0-15.5) Hematocrit 32.1 % (36.0-47.0) Mean Corpuscular Volume 91 fL (79-100) Mean Corpuscular Hemoglobin 30 pg (25-35) Mean Corpuscular Hemoglobin Concent 33 g/dL (31-37) Red Cell Distribution Width 16.2 % (11.5-14.5) Platelet Count 447 x10^3/uL (140-400) Neutrophils (%) (Auto) 73 % (31-73) Lymphocytes (%) (Auto) 17 % (24-48) Monocytes (%) (Auto) 9 % (0-9) Eosinophils (%) (Auto) 1 % (0-3) Basophils (%) (Auto) 1 % (0-3) Neutrophils # (Auto) 7.8 x10^3uL (1.8-7.7) Lymphocytes # (Auto) 1.8 x10^3/uL (1.0-4.8) Monocytes # (Auto) 0.9 x10^3/uL (0.0-1.1) Eosinophils # (Auto) 0.1 x10^3/uL (0.0-0.7) Basophils # (Auto) 0.1 x10^3/uL (0.0-0.2) Sodium Level 141 mmol/L (136-145) Potassium Level 3.4 mmol/L (3.5-5.1) Chloride Level 101 mmol/L (98-107) Carbon Dioxide Level 33 mmol/L (21-32) Anion Gap 7 (6-14) Blood Urea Nitrogen 18 mg/dL (7-20) Creatinine 0.8 mg/dL (0.6-1.0) Estimated GFR (Cockcroft-Gault) 69.6 BUN/Creatinine Ratio 23 (6-20) Glucose Level 111 mg/dL (70-99) Lactic Acid Level 1.2 mmol/L (0.4-2.0) Calcium Level 8.6 mg/dL (8.5-10.1) Total Bilirubin 0.4 mg/dL (0.2-1.0) Aspartate Amino Transf (AST/SGOT) 23 U/L (15-37) Alanine Aminotransferase (ALT/SGPT) 28 U/L (14-59) Alkaline Phosphatase 96 U/L (46-116) Troponin I Quantitative < 0.017 ng/mL (0.000-0.055) < 0.017 ng/mL (0.000-0.055) TU-Xgl-B-Type Natriuretic Peptide 379 pg/mL (0-449) Total Protein 6.0 g/dL (6.4-8.2) Albumin 3.0 g/dL (3.4-5.0) Albumin/Globulin Ratio 1.0 (1.0-1.7) Lipase 169 U/L (73-393) Urine Collection Type Unknown Urine Color Yellow Urine Clarity Clear Urine pH 7.5 Urine Specific [place] >=1.030 Urine Protein 100 mg/dL (NEG-TRACE) Urine Glucose (UA) Negative mg/dL (NEG) Urine Ketones (Stick) Negative mg/dL (NEG) Urine Blood Negative (NEG) Urine Nitrite Negative (NEG) Urine Bilirubin Negative (NEG) Urine Urobilinogen Dipstick 0.2 mg/dL (0.2 mg/dL) Urine Leukocyte Esterase Moderate (NEG) Urine RBC Occ /HPF (0-2) Urine WBC 20-40 /HPF (0-4) Urine Squamous Epithelial Cells Mod /LPF Urine Bacteria Few /HPF (0-FEW) Urine Hyaline Casts Few /HPF Urine Mucus Slight /LPF Assessment/Plan Assessment/Plan Vascular consult dictated Imp: 1. AAA, nonruptured, 4 cm 2. abdominal and back pain, likely due to obstipation 3. COPD requiring home oxygen 4. ASCVD 5. ASHD Rec: pt is not a candidate for AAA repair. Would require open repair which she would not survive due to severe lung disease 2. GI consult, comfort measures 3. pt states she does not want major surgery even if she were a candidate. BRANDY CHOW II, MD March 03, 2017 15:49
[2017-03-03] MEDS: POLYETHYLENE GLYCOL 3350 17 GM PACKET. PO SCH (16:02)
[2017-03-03] MEDS ORDERED: IPRATRPIUM/ALBUTEROL 0.5/2.5MG 3 ML NEBU. NEB ONE (18:00)
[2017-03-03 19:05] VITALS: BP 181/51
[2017-03-03] MEDS ORDERED: ALBUTEROL SULFATE 2.5 MG/3 ML NEBU. NEB PRN (19:45)
[2017-03-03] MEDS ORDERED: MORPHINE SULFATE 2 MG/ML DISP.SYRIN. IV PRN (19:45)
[2017-03-03] MEDS: HYDROcodone/APAP 5/325MG 1 TAB TABLET PO PRN (20:09)
[2017-03-03] MEDS: FAMOTIDINE 20 MG TABLET. PO SCH ×2 (20:10→20:11)
[2017-03-03] MEDS: METOPROLOL SUCC 24HR ER 25 MG TAB.ER.24H. PO SCH (20:10)
[2017-03-03] MEDS: ALBUTEROL SULFATE 2.5 MG/3 ML NEBU. NEB SCH (22:13)
[2017-03-03 22:50] VITALS: BP 177/56
[2017-03-03] MEDS: LABETALOL 20 MG/4 ML DISP.SYRIN. IVP PRN (23:19)
[2017-03-04 03:23] VITALS: BP 173/51
[2017-03-04] MEDS: LABETALOL 20 MG/4 ML DISP.SYRIN. IVP PRN ×2 (03:44→21:42)
[2017-03-04 04:18] LABS: BASO # 0.1 x10^3/uL (0.0-0.2); BASO % 1 % (0-3); EOS % 1 % (0-3); HEMATOCRIT 31.6 % (36.0-47.0); LYMPH # 1.4 x10^3/uL (1.0-4.8); LYMPH % 13 % (24-48); MEAN CORPUSCULAR HEMOGLOBIN 30 pg (25-35); MEAN CORPUSCULAR HGB CONC 32 g/dL (31-37); MEAN CORPUSCULAR VOLUME 94 fL (79-100); MONO % 7 % (0-9); NEUT % 78 % (31-73); PLATELET COUNT 384 x10^3/uL (140-400); RED BLOOD COUNT 3.36 x10^6/uL (3.50-5.40); WHITE BLOOD COUNT 10.6 x10^3/uL (4.0-11.0)
[2017-03-04 04:33] LABS: CALCIUM 8.4 mg/dL (8.5-10.1); CREATININE 0.8 mg/dL (0.6-1.0); GFR 69.6; POTASSIUM 3.4 mmol/L (3.5-5.1)
[2017-03-04 07:00] VITALS: BP 156/42
[2017-03-04] MEDS: ALBUTEROL SULFATE 2.5 MG/3 ML NEBU. NEB SCH ×4 (07:01→20:54)
[2017-03-04] MEDS: HYDROcodone/APAP 5/325MG 1 TAB TABLET PO PRN ×3 (07:27→21:46)
[2017-03-04] MEDS: POLYETHYLENE GLYCOL 3350 17 GM PACKET. PO SCH ×2 (08:35→21:41)
[2017-03-04] MEDS: METOPROLOL SUCC 24HR ER 25 MG TAB.ER.24H. PO SCH ×2 (08:37→21:41)
--- NOTE | 2017-03-04 09:39 | PDOC ---
PROGRESS NOTES Chief Complaint Chief Complaint 1. AAA, 4 cm (6 mm biggetv than last inaging) 2. Severe COPD, end stage, O2 dependent 3. SYmptomatic cholelithiasis 4. MOD to severe COPD 5. hypokalemia 6. AOCD 7. DNR History of Present Illness History of Present Illness RUQ pain persists LFTS ok NO fever NO WHite ct [facility] sx note reviewed - not surgical candidtae and pt also would not want major sx US and CT scan abd shows cholelithiasis PAin is 8/10,now, looks uncomfortable 6/10 at its best WHeezy, dec BS -- looks tachypneic PLAN: NPO untill GS round GS consult today Pulmo consult for tenous respi status Cough med COnt nebs NEeds SNU - refuses SNU for the longest time DNR Dw RN, pt and GI soft if no surgical plans Vitals Vitals Vital Signs Date Time Temp Pulse Resp B/P (MAP) Pulse Ox O2 Delivery O2 Flow Rate FiO2 03/04/17 08:37 78 156/42 03/04/17 08:37 Nasal Cannula 03/04/17 07:30 3.0 03/04/17 07:02 94 03/04/17 07:00 98.8 20 98.8 Physical Exam General: Alert, Oriented X3, mild distress Heart: Regular rate Lungs: Wheezing, Other Abdomen: Soft, Other (tenderness RUQ area) Extremities: No clubbing, No cyanosis Skin: No rashes, No breakdown Labs LABS Laboratory Tests Test 03/03/17 13:15 03/03/17 18:40 03/04/17 03:35 Troponin I Quantitative < 0.017 ng/mL (0.000-0.055) 0.019 ng/mL (0.000-0.055) White Blood Count 10.6 x10^3/uL (4.0-11.0) Red Blood Count 3.36 x10^6/uL (3.50-5.40) Hemoglobin 10.0 g/dL (12.0-15.5) Hematocrit 31.6 % (36.0-47.0) Mean Corpuscular Volume 94 fL (79-100) Mean Corpuscular Hemoglobin 30 pg (25-35) Mean Corpuscular Hemoglobin Concent 32 g/dL (31-37) Red Cell Distribution Width 16.0 % (11.5-14.5) Platelet Count 384 x10^3/uL (140-400) Neutrophils (%) (Auto) 78 % (31-73) Lymphocytes (%) (Auto) 13 % (24-48) Monocytes (%) (Auto) 7 % (0-9) Eosinophils (%) (Auto) 1 % (0-3) Basophils (%) (Auto) 1 % (0-3) Neutrophils # (Auto) 8.2 x10^3uL (1.8-7.7) Lymphocytes # (Auto) 1.4 x10^3/uL (1.0-4.8) Monocytes # (Auto) 0.8 x10^3/uL (0.0-1.1) Eosinophils # (Auto) 0.1 x10^3/uL (0.0-0.7) Basophils # (Auto) 0.1 x10^3/uL (0.0-0.2) Sodium Level 143 mmol/L (136-145) Potassium Level 3.4 mmol/L (3.5-5.1) Chloride Level 103 mmol/L (98-107) Carbon Dioxide Level 34 mmol/L (21-32) Anion Gap 6 (6-14) Blood Urea Nitrogen 13 mg/dL (7-20) Creatinine 0.8 mg/dL (0.6-1.0) Estimated GFR (Cockcroft-Gault) 69.6 Glucose Level 93 mg/dL (70-99) Calcium Level 8.4 mg/dL (8.5-10.1) Review of Systems Review of Systems RUQ pain, no emesis, no diarrhea, SOA, no CP Assessment and Plan Assessmemt and Plan Problems Medical Problems: (1) Abdominal pain Status: Acute Problems: Comment Review of Relevant I have reviewed the following items gabby (where applicable) has been applied. Labs Laboratory Tests Test 03/03/17 06:12 03/03/17 08:20 03/03/17 13:15 03/03/17 18:40 White Blood Count 10.7 x10^3/uL (4.0-11.0) Red Blood Count 3.54 x10^6/uL (3.50-5.40) Hemoglobin 10.7 g/dL (12.0-15.5) Hematocrit 32.1 % (36.0-47.0) Mean Corpuscular Volume 91 fL (79-100) Mean Corpuscular Hemoglobin 30 pg (25-35) Mean Corpuscular Hemoglobin Concent 33 g/dL (31-37) Red Cell Distribution Width 16.2 % (11.5-14.5) Platelet Count 447 x10^3/uL (140-400) Neutrophils (%) (Auto) 73 % (31-73) Lymphocytes (%) (Auto) 17 % (24-48) Monocytes (%) (Auto) 9 % (0-9) Eosinophils (%) (Auto) 1 % (0-3) Basophils (%) (Auto) 1 % (0-3) Neutrophils # (Auto) 7.8 x10^3uL (1.8-7.7) Lymphocytes # (Auto) 1.8 x10^3/uL (1.0-4.8) Monocytes # (Auto) 0.9 x10^3/uL (0.0-1.1) Eosinophils # (Auto) 0.1 x10^3/uL (0.0-0.7) Basophils # (Auto) 0.1 x10^3/uL (0.0-0.2) Sodium Level 141 mmol/L (136-145) Potassium Level 3.4 mmol/L (3.5-5.1) Chloride Level 101 mmol/L (98-107) Carbon Dioxide Level 33 mmol/L (21-32) Anion Gap 7 (6-14) Blood Urea Nitrogen 18 mg/dL (7-20) Creatinine 0.8 mg/dL (0.6-1.0) Estimated GFR (Cockcroft-Gault) 69.6 BUN/Creatinine Ratio 23 (6-20) Glucose Level 111 mg/dL (70-99) Lactic Acid Level 1.2 mmol/L (0.4-2.0) Calcium Level 8.6 mg/dL (8.5-10.1) Total Bilirubin 0.4 mg/dL (0.2-1.0) Aspartate Amino Transf (AST/SGOT) 23 U/L (15-37) Alanine Aminotransferase (ALT/SGPT) 28 U/L (14-59) Alkaline Phosphatase 96 U/L (46-116) Troponin I Quantitative < 0.017 ng/mL (0.000-0.055) < 0.017 ng/mL (0.000-0.055) 0.019 ng/mL (0.000-0.055) TU-Poo-L-Type Natriuretic Peptide 379 pg/mL (0-449) Total Protein 6.0 g/dL (6.4-8.2) Albumin 3.0 g/dL (3.4-5.0) Albumin/Globulin Ratio 1.0 (1.0-1.7) Lipase 169 U/L (73-393) Urine Collection Type Unknown Urine Color Yellow Urine Clarity Clear Urine pH 7.5 Urine Specific [place] >=1.030 Urine Protein 100 mg/dL (NEG-TRACE) Urine Glucose (UA) Negative mg/dL (NEG) Urine Ketones (Stick) Negative mg/dL (NEG) Urine Blood Negative (NEG) Urine Nitrite Negative (NEG) Urine Bilirubin Negative (NEG) Urine Urobilinogen Dipstick 0.2 mg/dL (0.2 mg/dL) Urine Leukocyte Esterase Moderate (NEG) Urine RBC Occ /HPF (0-2) Urine WBC 20-40 /HPF (0-4) Urine Squamous Epithelial Cells Mod /LPF Urine Bacteria Few /HPF (0-FEW) Urine Hyaline Casts Few /HPF Urine Mucus Slight /LPF Test 03/04/17 03:35 White Blood Count 10.6 x10^3/uL (4.0-11.0) Red Blood Count 3.36 x10^6/uL (3.50-5.40) Hemoglobin 10.0 g/dL (12.0-15.5) Hematocrit 31.6 % (36.0-47.0) Mean Corpuscular Volume 94 fL (79-100) Mean Corpuscular Hemoglobin 30 pg (25-35) Mean Corpuscular Hemoglobin Concent 32 g/dL (31-37) Red Cell Distribution Width 16.0 % (11.5-14.5) Platelet Count 384 x10^3/uL (140-400) Neutrophils (%) (Auto) 78 % (31-73) Lymphocytes (%) (Auto) 13 % (24-48) Monocytes (%) (Auto) 7 % (0-9) Eosinophils (%) (Auto) 1 % (0-3) Basophils (%) (Auto) 1 % (0-3) Neutrophils # (Auto) 8.2 x10^3uL (1.8-7.7) Lymphocytes # (Auto) 1.4 x10^3/uL (1.0-4.8) Monocytes # (Auto) 0.8 x10^3/uL (0.0-1.1) Eosinophils # (Auto) 0.1 x10^3/uL (0.0-0.7) Basophils # (Auto) 0.1 x10^3/uL (0.0-0.2) Sodium Level 143 mmol/L (136-145) Potassium Level 3.4 mmol/L (3.5-5.1) Chloride Level 103 mmol/L (98-107) Carbon Dioxide Level 34 mmol/L (21-32) Anion Gap 6 (6-14) Blood Urea Nitrogen 13 mg/dL (7-20) Creatinine 0.8 mg/dL (0.6-1.0) Estimated GFR (Cockcroft-Gault) 69.6 Glucose Level 93 mg/dL (70-99) Calcium Level 8.4 mg/dL (8.5-10.1) Laboratory Tests Test 03/03/17 13:15 03/03/17 18:40 03/04/17 03:35 Troponin I Quantitative < 0.017 ng/mL (0.000-0.055) 0.019 ng/mL (0.000-0.055) White Blood Count 10.6 x10^3/uL (4.0-11.0) Red Blood Count 3.36 x10^6/uL (3.50-5.40) Hemoglobin 10.0 g/dL (12.0-15.5) Hematocrit 31.6 % (36.0-47.0) Mean Corpuscular Volume 94 fL (79-100) Mean Corpuscular Hemoglobin 30 pg (25-35) Mean Corpuscular Hemoglobin Concent 32 g/dL (31-37) Red Cell Distribution Width 16.0 % (11.5-14.5) Platelet Count 384 x10^3/uL (140-400) Neutrophils (%) (Auto) 78 % (31-73) Lymphocytes (%) (Auto) 13 % (24-48) Monocytes (%) (Auto) 7 % (0-9) Eosinophils (%) (Auto) 1 % (0-3) Basophils (%) (Auto) 1 % (0-3) Neutrophils # (Auto) 8.2 x10^3uL (1.8-7.7) Lymphocytes # (Auto) 1.4 x10^3/uL (1.0-4.8) Monocytes # (Auto) 0.8 x10^3/uL (0.0-1.1) Eosinophils # (Auto) 0.1 x10^3/uL (0.0-0.7) Basophils # (Auto) 0.1 x10^3/uL (0.0-0.2) Sodium Level 143 mmol/L (136-145) Potassium Level 3.4 mmol/L (3.5-5.1) Chloride Level 103 mmol/L (98-107) Carbon Dioxide Level 34 mmol/L (21-32) Anion Gap 6 (6-14) Blood Urea Nitrogen 13 mg/dL (7-20) Creatinine 0.8 mg/dL (0.6-1.0) Estimated GFR (Cockcroft-Gault) 69.6 Glucose Level 93 mg/dL (70-99) Calcium Level 8.4 mg/dL (8.5-10.1) Medications Current Medications Fentanyl Citrate (Fentanyl 2ml Vial) 25 mcg PRN Q15MIN PRN IV PAIN GREATER THAN 3/10 Last administered on 03/03/17 08:49; Start 03/03/17 at 06:15; Stop at 06:14; Status DC Ondansetron HCl (Zofran) 4 mg 1X ONCE IV Last administered on 03/03/17 06:40 ; Start 03/03/17 at 06:30; Stop 03/03/17 at 06:31; Status DC Sodium Chloride 500 ml @ 500 mls/hr 1X ONCE IV Last administered on 06:40; Start 03/03/17 at 06:30; Stop 03/03/17 at 07:29; Status DC Iohexol (Omnipaque 300 Mg/ml) 75 ml 1X ONCE IV Last administered on 03/03/17 07:01; Start 03/03/17 at 07:00; Stop 03/03/17 at 07:01; Status DC Info (Do NOT chart on this entry -- for MONITORING) 1 each PRN DAILY PRN MC SEE COMMENTS; Start 03/03/17 at 06:30; Stop 03/05/17 at 06:29 Metoprolol Tartrate (Lopressor) 5 mg 1X ONCE IVP Last administered on 08:10; Start 03/03/17 at 08:00; Stop 03/03/17 at 08:01; Status DC Ceftriaxone Sodium 50 ml @ 100 mls/hr 1X ONCE IV Last administered on 10:19; Start 03/03/17 at 10:15; Stop 03/03/17 at 10:44; Status DC Ceftriaxone Sodium 1 gm/ Sodium Chloride 50 ml @ 100 mls/hr Q24H IV ; Start at 11:00 Diphenhydramine HCl (Benadryl) 25 mg 1X ONCE IVP Last administered on 10:19; Start 03/03/17 at 10:15; Stop 03/03/17 at 10:20; Status DC Ondansetron HCl (Zofran) 4 mg PRN Q8HRS PRN IV NAUSEA/VOMITING Last administered on 03/03/17 12:21; Start 03/03/17 at 10:30; Stop 03/04/17 at 10:29 Fentanyl Citrate (Fentanyl 2ml Vial) 50 mcg PRN Q1HR PRN IV PAIN Last administered on 03/03/17 18:01; Start 03/03/17 at 10:30; Stop 03/04/17 at 10:29 Acetaminophen (Tylenol) 650 mg PRN Q4HRS PRN PO FEVER; Start 03/03/17 at 10:30 ; Stop 03/04/17 at 10:29 Polyethylene Glycol (miraLAX PACKET) 17 gm DAILY PO Last administered on 08:35; Start 03/03/17 at 15:00 Famotidine (Pepcid) 20 mg QHS PO ; Start 03/03/17 at 21:00 Albuterol/ Ipratropium (Duoneb) 3 ml 1X ONCE NEB Last administered on 18:04; Start 03/03/17 at 18:00; Stop 03/03/17 at 18:01; Status DC Albuterol Sulfate (Ventolin Neb Soln) 2.5 mg RTQID NEB Last administered on 07:01; Start 03/03/17 at 20:00 Albuterol Sulfate (Ventolin Neb Soln) 2.5 mg PRN Q4HRS PRN NEB SHORTNESS OF BREATH; Start 03/03/17 at 19:45 Acetaminophen/ Hydrocodone Bitart (Lortab 5/325) 1 tab Q6HRS PRN PO PAIN Last administered on 03/04/17 07:27; Start 03/03/17 at 19:45 Morphine Sulfate 2 mg PRN Q2HR PRN IV PAIN; Start 03/03/17 at 19:45 Metoprolol Succinate (Toprol Xl) 12.5 mg DAILY PO Last administered on 08:37; Start 03/03/17 at 20:00 Labetalol HCl (Normodyne) 10 mg PRN Q2HR PRN IVP HYPERTENSION, SEE COMMENTS Last administered on 03/04/17 03:44; Start 03/03/17 at 19:45 Active Scripts Active Prednisone 10 Mg Tablet 10 Mg PO UD Take 3 tablets by mouth daily for 3 days, then take 2 tablets by mouth daily for 3 days, then take 1 tablet by mouth daily for 3 days, then resume home dose. Levaquin (Levofloxacin) 750 Mg Tablet 1 Tab PO QODAY Reported Azithromycin Tablet (Azithromycin) 250 Mg Tablet 250 Mg PO DAILY Spironolactone 25 Mg Tablet 1 Tab PO DAILY Atorvastatin Calcium 10 Mg Tablet 1 Tab PO HS NEXT DOSE: 07/15/15 PM Amlodipine Besylate 5 Mg Tablet 5 Mg PO DAILY NEXT DOSE: 07/16/15 AM Prednisolone Acetate 5 Ml Drops.susp 5 Ml OP Furosemide 20 Mg Tablet Unknown Dose PO DAILY NEXT DOSE: 07/16/15 AM Prednisone 5 Mg Tablet 10 Mg PO QODAY NEXT DOSE: START 07/16/15 40MG DAILY X2 DAYS 30MG DAILY X2 DAYS 20MG DAILY X2 DAYS 10MG DAILY X2 DAYS STOP TAKING AFTER LAST PILL Plavix (Clopidogrel Bisulfate) 75 Mg Tablet 75 Mg PO DAILY NEXT DOSE: 07/16/15 AM Aspir 81 (Aspirin) 81 Mg Tablet.dr 81 Mg PO DAILY NEXT DOSE: 07/16/15 AM Metoprolol Tartrate 25 Mg Tablet 12.5 Mg PO DAILY NEXT DOSE: 07/16/15 AM Alprazolam 0.25 Mg Tab.rapdis 0.25 Mg PO PRN NEXT DOSE: 07/15/15 AFTERNOON Daliresp (Roflumilast) 500 Mcg Tablet 250 Mcg PO DAILY NEXT DOSE: 07/16/15 AM Albuterol Sulfate Neb Soln (Albuterol Sulfate) 1.25 Mg/3 Ml Vial.neb 1.25 Mg IH Q3HRS PRN Spiriva (Tiotropium [place]) 18 Mcg Cap.w.dev 1 Puff IH DAILY Vitals/I & O Vital Sign - Last 24 Hours 03/03/17 03/03/17 03/03/17 03/03/17 10:00 10:30 11:00 11:45 Pulse 58 64 64 Resp 29 16 20 B/P (MAP) 173/80 (111) 162/65 (97) 175/73 (107) Pulse Ox 99 99 100 O2 Delivery Nasal Cannula Nasal Cannula Room Air Room Air O2 Flow Rate 4.0 4.0 4.0 03/03/17 03/03/17 03/03/17 03/03/17 12:00 12:25 15:00 16:06 Temp 97.7 97.7 Pulse 63 86 Resp 20 20 B/P (MAP) 181/49 (93) 170/63 (98) Pulse Ox 98 97 O2 Delivery Nasal Cannula Nasal Cannula Nasal Cannula Nasal Cannula O2 Flow Rate 4.0 4.0 03/03/17 03/03/17 03/03/17 03/03/17 18:01 18:06 18:35 19:05 Temp 98.2 98.2 Pulse 91 Resp 20 B/P (MAP) 181/51 (94) Pulse Ox 90 O2 Delivery Nasal Cannula Nasal Cannula Nasal Cannula Nasal Cannula O2 Flow Rate 3.0 4.0 03/03/17 03/03/17 03/03/17 03/03/17 20:00 20:10 22:13 22:50 Temp 98.0 98.0 Pulse 91 77 Resp 20 B/P (MAP) 181/51 177/56 (96) Pulse Ox 97 91 O2 Delivery Nasal Cannula Nasal Cannula Nasal Cannula O2 Flow Rate 3.0 3.0 3.0 03/03/17 03/04/17 03/04/17 03/04/17 23:19 03:23 03:44 07:00 Temp 98.1 98.8 98.1 98.8 Pulse 77 71 71 78 Resp 20 20 B/P (MAP) 177/56 173/51 (91) 173/51 156/42 (80) Pulse Ox 94 92 O2 Delivery Nasal Cannula Nasal Cannula O2 Flow Rate 3.0 4.0 03/04/17 03/04/17 03/04/17 03/04/17 07:02 07:27 07:30 08:37 Pulse Ox 94 O2 Delivery Nasal Cannula Nasal Cannula Nasal Cannula Nasal Cannula O2 Flow Rate 3.0 3.0 03/04/17 08:37 Pulse 78 B/P (MAP) 156/42 Intake and Output 03/03/17 03/03/17 03/04/17 15:00 23:00 07:00 Intake Total 550 ml 300 ml Output Total 1 ml Balance 550 ml 299 ml LITO COX MD March 04, 2017 09:39
[2017-03-04] MEDS ORDERED: guaiFENesin DM 200MG/20MG 10 ML SYRUP PO PRN (09:45)
[2017-03-04] MEDS ORDERED: POTASSIUM CHLORIDE 20 MEQ TABLET.ER. PO ONE (10:00)
[2017-03-04 11:00] VITALS: BP_SYST 153; BP_SYST 170; BP_DIAS 45; BP_DIAS 82
--- NOTE | 2017-03-04 11:57 | PDOC2 ---
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 She continued to have Right sided abdominal pain and nausea, she could keep some liquids down. Associated back pain, she reports that has been ongoing for some time Her pain is unchanged today, she is thirsty Past Medical History Cardiovascular: CAD, HTN, Other Pulmonary: COPD, Pneumonia CENTRAL NERVOUS SYSTEM: Other GI: No pertinent hx, Other Heme/Onc: Anemia NOS, Other Hepatobiliary: No pertinent hx Psych: No pertinent hx Musculoskeletal: Osteoarthritis, Other Rheumatologic: No pertinent hx Infectious disease: No pertinent hx Renal/: No pertinent hx Endocrine: No pertinent hx Past Surgical History Past Surgical History: Cataract Removal, Hysterectomy, Other Family History Family History: Hypertension Social History <1 pack per day ALCOHOL: none Drugs: None Lives: with Family Domestic Violence: Neg Current Problem List Problem List Problems Medical Problems: (1) Abdominal pain Status: Acute Current Medications Current Medications Current Medications Fentanyl Citrate (Fentanyl 2ml Vial) 25 mcg PRN Q15MIN PRN IV PAIN GREATER THAN 3/10 Last administered on 03/03/17 08:49; Start 03/03/17 at 06:15; Stop at 06:14; Status DC Ondansetron HCl (Zofran) 4 mg 1X ONCE IV Last administered on 03/03/17 06:40 ; Start 03/03/17 at 06:30; Stop 03/03/17 at 06:31; Status DC Sodium Chloride 500 ml @ 500 mls/hr 1X ONCE IV Last administered on 06:40; Start 03/03/17 at 06:30; Stop 03/03/17 at 07:29; Status DC Iohexol (Omnipaque 300 Mg/ml) 75 ml 1X ONCE IV Last administered on 03/03/17 07:01; Start 03/03/17 at 07:00; Stop 03/03/17 at 07:01; Status DC Info (Do NOT chart on this entry -- for MONITORING) 1 each PRN DAILY PRN MC SEE COMMENTS; Start 03/03/17 at 06:30; Stop 03/05/17 at 06:29 Metoprolol Tartrate (Lopressor) 5 mg 1X ONCE IVP Last administered on 08:10; Start 03/03/17 at 08:00; Stop 03/03/17 at 08:01; Status DC Ceftriaxone Sodium 50 ml @ 100 mls/hr 1X ONCE IV Last administered on 10:19; Start 03/03/17 at 10:15; Stop 03/03/17 at 10:44; Status DC Ceftriaxone Sodium 1 gm/ Sodium Chloride 50 ml @ 100 mls/hr Q24H IV Last administered on 03/04/17 10:50; Start 03/04/17 at 11:00 Diphenhydramine HCl (Benadryl) 25 mg 1X ONCE IVP Last administered on 10:19; Start 03/03/17 at 10:15; Stop 03/03/17 at 10:20; Status DC Ondansetron HCl (Zofran) 4 mg PRN Q8HRS PRN IV NAUSEA/VOMITING Last administered on 03/03/17 12:21; Start 03/03/17 at 10:30; Stop 03/04/17 at 10:29 ; Status DC Fentanyl Citrate (Fentanyl 2ml Vial) 50 mcg PRN Q1HR PRN IV PAIN Last administered on 03/03/17 18:01; Start 03/03/17 at 10:30; Stop 03/04/17 at 10:29 ; Status DC Acetaminophen (Tylenol) 650 mg PRN Q4HRS PRN PO FEVER; Start 03/03/17 at 10:30 ; Stop 03/04/17 at 10:29; Status DC Polyethylene Glycol (miraLAX PACKET) 17 gm DAILY PO Last administered on 08:35; Start 03/03/17 at 15:00 Famotidine (Pepcid) 20 mg QHS PO ; Start 03/03/17 at 21:00 Albuterol/ Ipratropium (Duoneb) 3 ml 1X ONCE NEB Last administered on 18:04; Start 03/03/17 at 18:00; Stop 03/03/17 at 18:01; Status DC Albuterol Sulfate (Ventolin Neb Soln) 2.5 mg RTQID NEB Last administered on 11:05; Start 03/03/17 at 20:00 Albuterol Sulfate (Ventolin Neb Soln) 2.5 mg PRN Q4HRS PRN NEB SHORTNESS OF BREATH; Start 03/03/17 at 19:45 Acetaminophen/ Hydrocodone Bitart (Lortab 5/325) 1 tab Q6HRS PRN PO PAIN Last administered on 03/04/17 07:27; Start 03/03/17 at 19:45 Morphine Sulfate 2 mg PRN Q2HR PRN IV PAIN; Start 03/03/17 at 19:45 Metoprolol Succinate (Toprol Xl) 12.5 mg DAILY PO Last administered on 08:37; Start 03/03/17 at 20:00 Labetalol HCl (Normodyne) 10 mg PRN Q2HR PRN IVP HYPERTENSION, SEE COMMENTS Last administered on 03/04/17 03:44; Start 03/03/17 at 19:45 Guaifenesin (Robitussin Dm) 10 ml PRN Q6HRS PRN PO COUGH; Start 03/04/17 at 09: 45 Potassium Chloride (Klor-Con) 40 meq 1X ONCE PO Last administered on 10:51; Start 03/04/17 at 10:00; Stop 03/04/17 at 10:01; Status DC Active Scripts Active Prednisone 10 Mg Tablet 10 Mg PO UD Take 3 tablets by mouth daily for 3 days, then take 2 tablets by mouth daily for 3 days, then take 1 tablet by mouth daily for 3 days, then resume home dose. Levaquin (Levofloxacin) 750 Mg Tablet 1 Tab PO QODAY Reported Azithromycin Tablet (Azithromycin) 250 Mg Tablet 250 Mg PO DAILY Spironolactone 25 Mg Tablet 1 Tab PO DAILY Atorvastatin Calcium 10 Mg Tablet 1 Tab PO HS NEXT DOSE: 07/15/15 PM Amlodipine Besylate 5 Mg Tablet 5 Mg PO DAILY NEXT DOSE: 07/16/15 AM Prednisolone Acetate 5 Ml Drops.susp 5 Ml OP Furosemide 20 Mg Tablet Unknown Dose PO DAILY NEXT DOSE: 07/16/15 AM Prednisone 5 Mg Tablet 10 Mg PO QODAY NEXT DOSE: START 07/16/15 40MG DAILY X2 DAYS 30MG DAILY X2 DAYS 20MG DAILY X2 DAYS 10MG DAILY X2 DAYS STOP TAKING AFTER LAST PILL Plavix (Clopidogrel Bisulfate) 75 Mg Tablet 75 Mg PO DAILY NEXT DOSE: 07/16/15 AM Aspir 81 (Aspirin) 81 Mg Tablet.dr 81 Mg PO DAILY NEXT DOSE: 07/16/15 AM Metoprolol Tartrate 25 Mg Tablet 12.5 Mg PO DAILY NEXT DOSE: 07/16/15 AM Alprazolam 0.25 Mg Tab.rapdis 0.25 Mg PO PRN NEXT DOSE: 07/15/15 AFTERNOON Daliresp (Roflumilast) 500 Mcg Tablet 250 Mcg PO DAILY NEXT DOSE: 07/16/15 AM Albuterol Sulfate Neb Soln (Albuterol Sulfate) 1.25 Mg/3 Ml Vial.neb 1.25 Mg IH Q3HRS PRN Spiriva (Tiotropium [place]) 18 Mcg Cap.w.dev 1 Puff IH DAILY Allergies Allergies: Coded Allergies: Sulfa (Sulfonamide Antibiotics) (Verified Allergy, Intermediate, 01/05/15) swelling cephalexin (Verified Allergy, Intermediate, Itching, 06/17/16) clarithromycin (Verified Allergy, Intermediate, 01/05/15) itches levofloxacin (Verified Allergy, Intermediate, Itching, 06/17/16) OK IF PRETREAT WITH BENADRYL ROS General: YES: Night Sweats, No: Chills, Other (fevers) PSYCHOLOGICAL ROS: No: Anxiety, Depression Eyes: No Blurry vision, No Double vision HEENT: No: Heacaches, Sore Throat Hematological and Lymphatic: No: Bleeding Problems, Blood Clots Respiratory: YES: Cough, SOB with excertion Cardiovascular: No Chest Pain, No Palpitations Gastrointestinal: Yes Other (see hpi) Genitourinary: No Dysuria, No Hematuria Musculoskeletal: Yes Pain In: (back), No Joint Swelling Neurological: No Impaired Coord/balance, No Numbness/Tingling Skin: No Pruritus, No Rash Physical Exam General: Alert, Oriented X3, Cooperative, No acute distress HEENT: PERRLA, Mucous membr. moist/pink Lungs: Other (on ) Heart: Regular rate, Normal S1, Normal S2 Abdomen: Soft, Other (RUQ TTP, ND) Extremities: No clubbing, No cyanosis Skin: No breakdown, No significant lesion Neuro: Normal gait, Normal speech Psych/Mental Status: Mental status NL, Mood NL MUSCULOSKELETAL: No deformity, No swelling Vitals VITALS Vital Signs Date Time Temp Pulse Resp B/P (MAP) Pulse Ox O2 Delivery O2 Flow Rate FiO2 03/04/17 11:05 Nasal Cannula 3.0 03/04/17 11:00 98.3 82 20 170/45 (86) 96 98.3 Labs Labs Laboratory Tests Test 03/03/17 06:12 03/03/17 08:20 03/03/17 13:15 03/03/17 18:40 White Blood Count 10.7 x10^3/uL (4.0-11.0) Red Blood Count 3.54 x10^6/uL (3.50-5.40) Hemoglobin 10.7 g/dL (12.0-15.5) Hematocrit 32.1 % (36.0-47.0) Mean Corpuscular Volume 91 fL (79-100) Mean Corpuscular Hemoglobin 30 pg (25-35) Mean Corpuscular Hemoglobin Concent 33 g/dL (31-37) Red Cell Distribution Width 16.2 % (11.5-14.5) Platelet Count 447 x10^3/uL (140-400) Neutrophils (%) (Auto) 73 % (31-73) Lymphocytes (%) (Auto) 17 % (24-48) Monocytes (%) (Auto) 9 % (0-9) Eosinophils (%) (Auto) 1 % (0-3) Basophils (%) (Auto) 1 % (0-3) Neutrophils # (Auto) 7.8 x10^3uL (1.8-7.7) Lymphocytes # (Auto) 1.8 x10^3/uL (1.0-4.8) Monocytes # (Auto) 0.9 x10^3/uL (0.0-1.1) Eosinophils # (Auto) 0.1 x10^3/uL (0.0-0.7) Basophils # (Auto) 0.1 x10^3/uL (0.0-0.2) Sodium Level 141 mmol/L (136-145) Potassium Level 3.4 mmol/L (3.5-5.1) Chloride Level 101 mmol/L (98-107) Carbon Dioxide Level 33 mmol/L (21-32) Anion Gap 7 (6-14) Blood Urea Nitrogen 18 mg/dL (7-20) Creatinine 0.8 mg/dL (0.6-1.0) Estimated GFR (Cockcroft-Gault) 69.6 BUN/Creatinine Ratio 23 (6-20) Glucose Level 111 mg/dL (70-99) Lactic Acid Level 1.2 mmol/L (0.4-2.0) Calcium Level 8.6 mg/dL (8.5-10.1) Total Bilirubin 0.4 mg/dL (0.2-1.0) Aspartate Amino Transf (AST/SGOT) 23 U/L (15-37) Alanine Aminotransferase (ALT/SGPT) 28 U/L (14-59) Alkaline Phosphatase 96 U/L (46-116) Troponin I Quantitative < 0.017 ng/mL (0.000-0.055) < 0.017 ng/mL (0.000-0.055) 0.019 ng/mL (0.000-0.055) FQ-Rcm-D-Type Natriuretic Peptide 379 pg/mL (0-449) Total Protein 6.0 g/dL (6.4-8.2) Albumin 3.0 g/dL (3.4-5.0) Albumin/Globulin Ratio 1.0 (1.0-1.7) Lipase 169 U/L (73-393) Urine Collection Type Unknown Urine Color Yellow Urine Clarity Clear Urine pH 7.5 Urine Specific [place] >=1.030 Urine Protein 100 mg/dL (NEG-TRACE) Urine Glucose (UA) Negative mg/dL (NEG) Urine Ketones (Stick) Negative mg/dL (NEG) Urine Blood Negative (NEG) Urine Nitrite Negative (NEG) Urine Bilirubin Negative (NEG) Urine Urobilinogen Dipstick 0.2 mg/dL (0.2 mg/dL) Urine Leukocyte Esterase Moderate (NEG) Urine RBC Occ /HPF (0-2) Urine WBC 20-40 /HPF (0-4) Urine Squamous Epithelial Cells Mod /LPF Urine Bacteria Few /HPF (0-FEW) Urine Hyaline Casts Few /HPF Urine Mucus Slight /LPF Test 03/04/17 03:35 White Blood Count 10.6 x10^3/uL (4.0-11.0) Red Blood Count 3.36 x10^6/uL (3.50-5.40) Hemoglobin 10.0 g/dL (12.0-15.5) Hematocrit 31.6 % (36.0-47.0) Mean Corpuscular Volume 94 fL (79-100) Mean Corpuscular Hemoglobin 30 pg (25-35) Mean Corpuscular Hemoglobin Concent 32 g/dL (31-37) Red Cell Distribution Width 16.0 % (11.5-14.5) Platelet Count 384 x10^3/uL (140-400) Neutrophils (%) (Auto) 78 % (31-73) Lymphocytes (%) (Auto) 13 % (24-48) Monocytes (%) (Auto) 7 % (0-9) Eosinophils (%) (Auto) 1 % (0-3) Basophils (%) (Auto) 1 % (0-3) Neutrophils # (Auto) 8.2 x10^3uL (1.8-7.7) Lymphocytes # (Auto) 1.4 x10^3/uL (1.0-4.8) Monocytes # (Auto) 0.8 x10^3/uL (0.0-1.1) Eosinophils # (Auto) 0.1 x10^3/uL (0.0-0.7) Basophils # (Auto) 0.1 x10^3/uL (0.0-0.2) Sodium Level 143 mmol/L (136-145) Potassium Level 3.4 mmol/L (3.5-5.1) Chloride Level 103 mmol/L (98-107) Carbon Dioxide Level 34 mmol/L (21-32) Anion Gap 6 (6-14) Blood Urea Nitrogen 13 mg/dL (7-20) Creatinine 0.8 mg/dL (0.6-1.0) Estimated GFR (Cockcroft-Gault) 69.6 Glucose Level 93 mg/dL (70-99) Calcium Level 8.4 mg/dL (8.5-10.1) Laboratory Tests Test 03/03/17 13:15 03/03/17 18:40 03/04/17 03:35 Troponin I Quantitative < 0.017 ng/mL (0.000-0.055) 0.019 ng/mL (0.000-0.055) White Blood Count 10.6 x10^3/uL (4.0-11.0) Red Blood Count 3.36 x10^6/uL (3.50-5.40) Hemoglobin 10.0 g/dL (12.0-15.5) Hematocrit 31.6 % (36.0-47.0) Mean Corpuscular Volume 94 fL (79-100) Mean Corpuscular Hemoglobin 30 pg (25-35) Mean Corpuscular Hemoglobin Concent 32 g/dL (31-37) Red Cell Distribution Width 16.0 % (11.5-14.5) Platelet Count 384 x10^3/uL (140-400) Neutrophils (%) (Auto) 78 % (31-73) Lymphocytes (%) (Auto) 13 % (24-48) Monocytes (%) (Auto) 7 % (0-9) Eosinophils (%) (Auto) 1 % (0-3) Basophils (%) (Auto) 1 % (0-3) Neutrophils # (Auto) 8.2 x10^3uL (1.8-7.7) Lymphocytes # (Auto) 1.4 x10^3/uL (1.0-4.8) Monocytes # (Auto) 0.8 x10^3/uL (0.0-1.1) Eosinophils # (Auto) 0.1 x10^3/uL (0.0-0.7) Basophils # (Auto) 0.1 x10^3/uL (0.0-0.2) Sodium Level 143 mmol/L (136-145) Potassium Level 3.4 mmol/L (3.5-5.1) Chloride Level 103 mmol/L (98-107) Carbon Dioxide Level 34 mmol/L (21-32) Anion Gap 6 (6-14) Blood Urea Nitrogen 13 mg/dL (7-20) Creatinine 0.8 mg/dL (0.6-1.0) Estimated GFR (Cockcroft-Gault) 69.6 Glucose Level 93 mg/dL (70-99) Calcium Level 8.4 mg/dL (8.5-10.1) Assessment/Plan Assessment/Plan abdominal pain, RUQ-US shows cholelithiasis, no signs of cholecystitis, normal WBC and LFTs AAA-vascular has evaluated, not a surgical candidate multiple comorbidities--CAD, COPD will consult pulm and cards--would need preop eval prior to any surgical intervention for lap vira KATHY GOODWIN MD 03/04/17 1406: CONSULT Allergies Allergies: Coded Allergies: Sulfa (Sulfonamide Antibiotics) (Verified Allergy, Intermediate, 01/05/15) swelling cephalexin (Verified Allergy, Intermediate, Itching, 06/17/16) clarithromycin (Verified Allergy, Intermediate, 01/05/15) itches levofloxacin (Verified Allergy, Intermediate, Itching, 06/17/16) OK IF PRETREAT WITH BENADRYL Assessment/Plan Assessment/Plan Patient getting cardiac ECHO now. Complains of nausea, not too much pain right now. Abd soft TTP RUQ U/S showing gallstone. Getting preop cardiac and pulmonary evaluation. Agree with Ledy's assessment and plan. SABA DOS SANTOS APRN March 04, 2017 11:57 KATHY GOODWIN MD March 04, 2017 14:06
--- NOTE | 2017-03-04 13:02 | PDOC2 ---
EDWIN OL APRN 03/04/17 1302: CARDIAC CONSULT DATE OF CONSULT Date of Consult DATE: 03/04/17 TIME: 12:49 REASON FOR CONSULT Reason for Consult: pre-op eval, CAD history REFERRING PHYSICIAN Referring Physician: Jenna Villafana APRN SOURCE Source: Chart review, Patient HISTORY OF PRESENT ILLNESS HISTORY OF PRESENT ILLNESS 76 year old female with right side abdominal pain since Tuesday. Initially with constipation and she took Sudha-Lax resulting in diarrhea. Presented to ER and found to have UTI and U/S of GB done yesterday with cholelithiasis. Advised lap vira. Pre-operative evaluation requested due to CAD history; pulmonary consult pending. Pt unsure if she will proceed. Denies CP/tightness/pressure and occasional palpitations with history of PSVT. No EKG for review. Hypokalemic today. Reason for Visit: pre-operative evaluation PAST MEDICAL HISTORY Past Medical History fibrocystic breast disease Cardiovascular: CAD (PCI/[facility] SEVERIANO to RCA - 02/2104), HTN, Hyperlipidemia, Other (PSVT; moderate (50-69%) left ICA disease on CDU - 09/2014; AAA 4 cm - determined not to be a surgical candidate due to lung disease) Pulmonary: Bronchitis, COPD (with chronic respiratory failure), Pneumonia, Other (previous DVT) CENTRAL NERVOUS SYSTEM: TIA GI: Constipation, Hemorrhoids, Other (colon polyps) Heme/Onc: Anemia NOS, Cancer (cervical), Other (myeloproliferative disorder) Hepatobiliary: No pertinent hx Psych: No pertinent hx Musculoskeletal: Osteoarthritis Rheumatologic: No pertinent hx Infectious disease: Other (C Diff) ENT: Other (cataracts; macular degeneration) Renal/: UTI Endocrine: Hypothyroidism Dermatology: No pertinent hx PAST SURGICAL HISTORY Past Surgical History: Cataract Removal, Hysterectomy FAMILY HISTORY Family History: Hypertension SOCIAL HISTORY Smoke: <1 pack per day ALCOHOL: none Drugs: None Lives: with Family CURRENT MEDICATIONS CURRENT MEDICATIONS Current Medications Medications (Trade) Dose Ordered Sig/Shaina Route PRN Reason Start Time Stop Time Status Last Admin Dose Admin Ceftriaxone Sodium 1 gm/ Sodium Chloride 50 ml @ 100 mls/hr Q24H IV 03/04/17 11:00 03/04/17 10:50 Polyethylene Glycol (miraLAX PACKET) 17 gm DAILY PO 03/03/17 15:00 03/04/17 08:35 Albuterol/ Ipratropium (Duoneb) 3 ml 1X ONCE NEB 03/03/17 18:00 03/03/17 18:01 DC 03/03/17 18:04 Albuterol Sulfate (Ventolin Neb Soln) 2.5 mg RTQID NEB 03/03/17 20:00 03/04/17 11:05 Acetaminophen/ Hydrocodone Bitart (Lortab 5/325) 1 tab Q6HRS PRN PO PAIN 03/03/17 19:45 03/04/17 07:27 Metoprolol Succinate (Toprol Xl) 12.5 mg DAILY PO 03/03/17 20:00 03/04/17 08:37 Labetalol HCl (Normodyne) 10 mg PRN Q2HR PRN IVP HYPERTENSION, SEE COMMENTS 03/03/17 19:45 03/04/17 03:44 Potassium Chloride (Klor-Con) 40 meq 1X ONCE PO 03/04/17 10:00 03/04/17 10:01 DC 03/04/17 10:51 ALLERGIES ALLERGIES: Coded Allergies: Sulfa (Sulfonamide Antibiotics) (Verified Allergy, Intermediate, 01/05/15) swelling cephalexin (Verified Allergy, Intermediate, Itching, 06/17/16) clarithromycin (Verified Allergy, Intermediate, 01/05/15) itches levofloxacin (Verified Allergy, Intermediate, Itching, 06/17/16) OK IF PRETREAT WITH BENADRYL ROS General: YES: Fatigue PSYCHOLOGICAL ROS: YES: Memory difficulties Eyes: Yes Decreased vision HEENT: YES: Visual Changes ALLERGY AND IMMUNOLOGY: No: Hives, Insect Bite Sensitivity, Itchy/Watery Eyes, Nasal Congestion, Post Nasal Drip, Seasonal Allergies, Other Hematological and Lymphatic: YES: Night Sweats, No: Bleeding Problems, Blood Clots, Blood Transfusions, Brusing, Pallor, Swollen Lymph Nodes, Other ENDOCRINE: No: Breast Changes, Galactorrhea, Hair Pattern Changes, Hot Flashes , Malaise/lethargy, Mood Swings, Palpitations, Polydipsia/polyuria, Skin Changes , Temperature Intolerance, Unexpected Weight Changes, Other Respiratory: YES: Cough, Shortness of breath, SOB with excertion, Tachypnea Cardiovascular: yes Palpitations (occasionally), No Chest Pain, No Orthopnea, No Paroxysmal Noc. Dyspnea, No Edema, No Lt Headedness, No Other Gastrointestinal: Yes Nausea, Yes Abdominal Pain, Yes Constipation Genitourinary: No Dysuria, No Frequency, No Incontinence, No Hematuria, No Retention, No Discharge, No Urgency, No Pain, No Flank Pain, No Other Musculoskeletal: Yes Joint Stiffness Neurological: Yes Gait Disturbance Skin: Yes Dry Skin PHYSICAL EXAM General: Alert, Oriented X3, Cooperative, No acute distress HEENT: Atraumatic, PERRLA Lungs: Other (decreased posteriorly; no crackles; no wheezing) Heart: Regular rate, Normal S1, Normal S2, Other (tele: SR/ST/SVT; 10/15 DANIKA aortic; ? carotid bruit) Abdomen: Soft Extremities: No edema, Normal pulses Skin: No rashes Neuro: Normal speech Psych/Mental Status: Mood NL MUSCULOSKELETAL: Osteoarthritic changes both hands VITALS VITALS Vital Signs Date Time Temp Pulse Resp B/P (MAP) Pulse Ox O2 Delivery O2 Flow Rate FiO2 03/04/17 11:05 Nasal Cannula 3.0 03/04/17 11:00 98.3 82 20 170/45 (86) 96 98.3 LABS Lab: Laboratory Tests Test 03/03/17 13:15 03/03/17 18:40 03/04/17 03:35 Troponin I Quantitative < 0.017 ng/mL (0.000-0.055) 0.019 ng/mL (0.000-0.055) White Blood Count 10.6 x10^3/uL (4.0-11.0) Red Blood Count 3.36 x10^6/uL (3.50-5.40) Hemoglobin 10.0 g/dL (12.0-15.5) Hematocrit 31.6 % (36.0-47.0) Mean Corpuscular Volume 94 fL (79-100) Mean Corpuscular Hemoglobin 30 pg (25-35) Mean Corpuscular Hemoglobin Concent 32 g/dL (31-37) Red Cell Distribution Width 16.0 % (11.5-14.5) Platelet Count 384 x10^3/uL (140-400) Neutrophils (%) (Auto) 78 % (31-73) Lymphocytes (%) (Auto) 13 % (24-48) Monocytes (%) (Auto) 7 % (0-9) Eosinophils (%) (Auto) 1 % (0-3) Basophils (%) (Auto) 1 % (0-3) Neutrophils # (Auto) 8.2 x10^3uL (1.8-7.7) Lymphocytes # (Auto) 1.4 x10^3/uL (1.0-4.8) Monocytes # (Auto) 0.8 x10^3/uL (0.0-1.1) Eosinophils # (Auto) 0.1 x10^3/uL (0.0-0.7) Basophils # (Auto) 0.1 x10^3/uL (0.0-0.2) Sodium Level 143 mmol/L (136-145) Potassium Level 3.4 mmol/L (3.5-5.1) Chloride Level 103 mmol/L (98-107) Carbon Dioxide Level 34 mmol/L (21-32) Anion Gap 6 (6-14) Blood Urea Nitrogen 13 mg/dL (7-20) Creatinine 0.8 mg/dL (0.6-1.0) Estimated GFR (Cockcroft-Gault) 69.6 Glucose Level 93 mg/dL (70-99) Calcium Level 8.4 mg/dL (8.5-10.1) IMAGES IMAGES no CXR for review 03/03/2017: U/S GB The exam was partially compromised by patient difficulty in cooperation. The gallbladder contains several gallstones. The gallbladder wall is not thickened. The common hepatic duct is of normal caliber. No hepatic mass is identified. The visualized portions of the pancreas and right kidney are unremarkable. IMPRESSION: Cholelithiasis EKG EKG none for review ECHOCARDIOGRAM ECHOCARDIOGRAM 03/24/2016: TTE: The left ventricle is normal size. The left ventricular systolic function is normal and the ejection fraction is within normal range. The Ejection Fraction is 60-65%. There is no significant aortic valvular stenosis. Doppler and Color Flow revealed moderate aortic regurgitation. Doppler and Color Flow revealed mild mitral regurgitation. Doppler and Color Flow revealed mild tricuspid regurgitation. The PA pressure was estimated at 38 mmHg. HEART CATH HEART CATH 02/2014: Normal left main coronary artery. 40-50% plaque noted in the mid left circumflex coronary artery. 95% stenosis noted in the midportion of the right coronary artery. Normal left ventricular systolic function with visually estimated ejection fraction of 75%. 02/27/2014: Successful PCI/drug eluting stent placement to the right coronary artery ASSESSMENT/PLAN ASSESSMENT/PLAN 1. pre-operative evaluation needs CXR & EKG echo pending - normal LV function in 2016 with moderate AR known left carotid disease - CDU to re-evaluate continue BB and adjust to usual dose of BID if proceeds with surgery may need IV BB 2. CAD with history of PCI/SEVERIANO to RCA - 2013 off Plavix since 2015 now off ASA also pending surgery increase BB to BID dosing resume statins soon 3. PSVT multiple episodes on tele increase metoprolol succinate to 12.5 mg BID for rate control resume home verapamil ER 120 mg daily today - rate control check Mg level and replace if indicated check TSH - ? hx of hypothyroidism but not on replacement therapy 4. HTN, malignant POA remains poorly controlled increased BB dose and resumed verapamil - monitor med list from office (10/2016) also reports spironolactone and lasix - may need to investigate further; and/or resume for BP control 5. HLD lipids unknown ? has been treated with atorvastatin - not listed in office chart 6. hypokalemia replaced earlier today 7. [place] [address] ? left bruit repeat CDU 8. AAA, 4 cm, non-ruptured not a surgical candidate due to pulm disease has been evaluated by vasc surgy 9. cholelithiasis ? surgery pt deciding Problems: MARY JANE BROWN MD 03/04/17 1843: CARDIAC CONSULT ALLERGIES ALLERGIES: Coded Allergies: Sulfa (Sulfonamide Antibiotics) (Verified Allergy, Intermediate, 01/05/15) swelling cephalexin (Verified Allergy, Intermediate, Itching, 06/17/16) clarithromycin (Verified Allergy, Intermediate, 01/05/15) itches levofloxacin (Verified Allergy, Intermediate, Itching, 06/17/16) OK IF PRETREAT WITH BENADRYL ASSESSMENT/PLAN ASSESSMENT/PLAN Patient seen and examined. Agree with PELT GRADER's assessment and plan. CAD status appears stable. Agree with increasing BB and resuming verapamil for better control of PSVT and hypertension. Check 2D echo to assess LV function. Thank you for your consultation. Problems: EDWIN LO APRN March 04, 2017 13:02 MARY JANE BROWN MD March 04, 2017 18:43
--- NOTE | 2017-03-04 13:50 | PDOC ---
Subjective: Subjective: RLQ pain persists. Today relates pain is more to RUQ. Feels better overall though. Tolerating PO. No BM. Objective: Vital Signs: Vital Signs Date Time Temp Pulse Resp B/P (MAP) Pulse Ox O2 Delivery O2 Flow Rate FiO2 03/04/17 11:05 Nasal Cannula 3.0 03/04/17 11:00 98.3 82 20 170/45 (86) 96 98.3 Labs: Laboratory Tests Test 03/03/17 18:40 03/04/17 03:35 Troponin I Quantitative 0.019 ng/mL White Blood Count 10.6 x10^3/uL Red Blood Count 3.36 x10^6/uL Hemoglobin 10.0 g/dL Hematocrit 31.6 % Mean Corpuscular Volume 94 fL Mean Corpuscular Hemoglobin 30 pg Mean Corpuscular Hemoglobin Concent 32 g/dL Red Cell Distribution Width 16.0 % Platelet Count 384 x10^3/uL Neutrophils (%) (Auto) 78 % Lymphocytes (%) (Auto) 13 % Monocytes (%) (Auto) 7 % Eosinophils (%) (Auto) 1 % Basophils (%) (Auto) 1 % Neutrophils # (Auto) 8.2 x10^3uL Lymphocytes # (Auto) 1.4 x10^3/uL Monocytes # (Auto) 0.8 x10^3/uL Eosinophils # (Auto) 0.1 x10^3/uL Basophils # (Auto) 0.1 x10^3/uL Sodium Level 143 mmol/L Potassium Level 3.4 mmol/L Chloride Level 103 mmol/L Carbon Dioxide Level 34 mmol/L Anion Gap 6 Blood Urea Nitrogen 13 mg/dL Creatinine 0.8 mg/dL Estimated GFR (Cockcroft-Gault) 69.6 Glucose Level 93 mg/dL Calcium Level 8.4 mg/dL PE: GEN: NAD LUNGS: decreased HEART: S1S2 ABD: RLQ to RUQ NEURO/PSYCH: A & O 3 A/P: RLQ pain -today spreading to RUQ AAA -vasc saw, poor surgical candidate Cholelithiasis -gen surg following now -cardiology and pulm asked to see for clearance before considering cholecystectomy Constipation -on Miralax Anemia - stable -last colonoscopy 2013 -- Will increase Miralax to BID. Await surgical plans. FLORINA SCHUMACHER March 04, 2017 13:50
[2017-03-04] MEDS: VERAPAMIL SR 120 MG TABLET.ER. PO SCH (14:25)
--- NOTE | 2017-03-04 14:33 | RAD ---
Indication preop. Anticipated cholecystectomy. A single view of the chest was obtained. Comparison is made to a study one day earlier. There has not been significant change in the appearance of the chest. The heart and pulmonary vessels are normal. No acute finding is apparent. IMPRESSION: No acute finding in the chest. No significant change compared to yesterday's study
--- NOTE | 2017-03-04 14:54 | RAD ---
Indication left carotid bruit. Grayscale color Doppler and spectral imaging was performed. Examination was targeted to the carotid bifurcations. On the left there is moderately heavy plaquing at the carotid bifurcation. The color Doppler images demonstrate mild turbulence. The common carotid waveform and measured peak velocities however appear normal. There is slightly elevated peak systolic velocity associated with the external carotid compatible with incidental stenosis, mild, in this vessel. The internal carotid waveform and velocities are normal. The vertebral is patent and demonstrates normal directional flow. There is an elevated peak velocity in the subclavian artery approaching 300 cm/s suggesting a stenotic component in this vessel. On the right there is also plaquing at the carotid bifurcation but not quite to as great a degree as on the contralateral left side. The color Doppler images do not suggest marked turbulence. The common carotid waveform and velocities are normal. The internal carotid waveform and velocities are also normal. The external carotid has an elevated peak velocity again compatible with incidental stenosis in this vessel. The vertebral is patent and demonstrates normal directional flow. The subclavian is unremarkable. IMPRESSION: Moderately heavy plaquing at both carotid bifurcations left greater than right. Evidence of hemodynamically significant stenosis at either carotid bifurcation however is not seen. Stenosis 0-50%. Note: Stenosis calculations for CT, MR and conventional angiography are based upon determination of the distal ICA diameter in accordance with the NASCET methodology. Stenosis calculations for doppler studies are derived from validated velocity criteria which are known to correlate with NASCET methodology of determining stenosis.
[2017-03-04 15:00] VITALS: BP 180/44
--- NOTE | 2017-03-04 15:49 | PDOC ---
PULMONARY PROGRESS NOTES Vitals Vital Signs Date Time Temp Pulse Resp B/P (MAP) Pulse Ox O2 Delivery O2 Flow Rate FiO2 03/04/17 15:37 Room Air 03/04/17 15:00 98.1 76 18 180/44 (89) 93 4.0 98.1 General: Alert, Oriented X4, No acute distress Lungs: Wheezing, Other Cardiovascular: S1, S2 Abdomen: Soft, Non-tender Extremities: No Edema Labs Laboratory Tests Test 03/03/17 06:12 03/03/17 08:20 03/03/17 13:15 03/03/17 18:40 White Blood Count 10.7 x10^3/uL (4.0-11.0) Red Blood Count 3.54 x10^6/uL (3.50-5.40) Hemoglobin 10.7 g/dL (12.0-15.5) Hematocrit 32.1 % (36.0-47.0) Mean Corpuscular Volume 91 fL (79-100) Mean Corpuscular Hemoglobin 30 pg (25-35) Mean Corpuscular Hemoglobin Concent 33 g/dL (31-37) Red Cell Distribution Width 16.2 % (11.5-14.5) Platelet Count 447 x10^3/uL (140-400) Neutrophils (%) (Auto) 73 % (31-73) Lymphocytes (%) (Auto) 17 % (24-48) Monocytes (%) (Auto) 9 % (0-9) Eosinophils (%) (Auto) 1 % (0-3) Basophils (%) (Auto) 1 % (0-3) Neutrophils # (Auto) 7.8 x10^3uL (1.8-7.7) Lymphocytes # (Auto) 1.8 x10^3/uL (1.0-4.8) Monocytes # (Auto) 0.9 x10^3/uL (0.0-1.1) Eosinophils # (Auto) 0.1 x10^3/uL (0.0-0.7) Basophils # (Auto) 0.1 x10^3/uL (0.0-0.2) Sodium Level 141 mmol/L (136-145) Potassium Level 3.4 mmol/L (3.5-5.1) Chloride Level 101 mmol/L (98-107) Carbon Dioxide Level 33 mmol/L (21-32) Anion Gap 7 (6-14) Blood Urea Nitrogen 18 mg/dL (7-20) Creatinine 0.8 mg/dL (0.6-1.0) Estimated GFR (Cockcroft-Gault) 69.6 BUN/Creatinine Ratio 23 (6-20) Glucose Level 111 mg/dL (70-99) Lactic Acid Level 1.2 mmol/L (0.4-2.0) Calcium Level 8.6 mg/dL (8.5-10.1) Total Bilirubin 0.4 mg/dL (0.2-1.0) Aspartate Amino Transf (AST/SGOT) 23 U/L (15-37) Alanine Aminotransferase (ALT/SGPT) 28 U/L (14-59) Alkaline Phosphatase 96 U/L (46-116) Troponin I Quantitative < 0.017 ng/mL (0.000-0.055) < 0.017 ng/mL (0.000-0.055) 0.019 ng/mL (0.000-0.055) AP-Ewx-E-Type Natriuretic Peptide 379 pg/mL (0-449) Total Protein 6.0 g/dL (6.4-8.2) Albumin 3.0 g/dL (3.4-5.0) Albumin/Globulin Ratio 1.0 (1.0-1.7) Lipase 169 U/L (73-393) Urine Collection Type Unknown Urine Color Yellow Urine Clarity Clear Urine pH 7.5 Urine Specific [place] >=1.030 Urine Protein 100 mg/dL (NEG-TRACE) Urine Glucose (UA) Negative mg/dL (NEG) Urine Ketones (Stick) Negative mg/dL (NEG) Urine Blood Negative (NEG) Urine Nitrite Negative (NEG) Urine Bilirubin Negative (NEG) Urine Urobilinogen Dipstick 0.2 mg/dL (0.2 mg/dL) Urine Leukocyte Esterase Moderate (NEG) Urine RBC Occ /HPF (0-2) Urine WBC 20-40 /HPF (0-4) Urine Squamous Epithelial Cells Mod /LPF Urine Bacteria Few /HPF (0-FEW) Urine Hyaline Casts Few /HPF Urine Mucus Slight /LPF Test 03/04/17 03:35 White Blood Count 10.6 x10^3/uL (4.0-11.0) Red Blood Count 3.36 x10^6/uL (3.50-5.40) Hemoglobin 10.0 g/dL (12.0-15.5) Hematocrit 31.6 % (36.0-47.0) Mean Corpuscular Volume 94 fL (79-100) Mean Corpuscular Hemoglobin 30 pg (25-35) Mean Corpuscular Hemoglobin Concent 32 g/dL (31-37) Red Cell Distribution Width 16.0 % (11.5-14.5) Platelet Count 384 x10^3/uL (140-400) Neutrophils (%) (Auto) 78 % (31-73) Lymphocytes (%) (Auto) 13 % (24-48) Monocytes (%) (Auto) 7 % (0-9) Eosinophils (%) (Auto) 1 % (0-3) Basophils (%) (Auto) 1 % (0-3) Neutrophils # (Auto) 8.2 x10^3uL (1.8-7.7) Lymphocytes # (Auto) 1.4 x10^3/uL (1.0-4.8) Monocytes # (Auto) 0.8 x10^3/uL (0.0-1.1) Eosinophils # (Auto) 0.1 x10^3/uL (0.0-0.7) Basophils # (Auto) 0.1 x10^3/uL (0.0-0.2) Sodium Level 143 mmol/L (136-145) Potassium Level 3.4 mmol/L (3.5-5.1) Chloride Level 103 mmol/L (98-107) Carbon Dioxide Level 34 mmol/L (21-32) Anion Gap 6 (6-14) Blood Urea Nitrogen 13 mg/dL (7-20) Creatinine 0.8 mg/dL (0.6-1.0) Estimated GFR (Cockcroft-Gault) 69.6 Glucose Level 93 mg/dL (70-99) Calcium Level 8.4 mg/dL (8.5-10.1) Magnesium Level 2.0 mg/dL (1.8-2.4) Thyroid Stimulating Hormone (TSH) 0.768 uIU/mL (0.358-3.74) Laboratory Tests Test 03/03/17 18:40 03/04/17 03:35 Troponin I Quantitative 0.019 ng/mL (0.000-0.055) White Blood Count 10.6 x10^3/uL (4.0-11.0) Red Blood Count 3.36 x10^6/uL (3.50-5.40) Hemoglobin 10.0 g/dL (12.0-15.5) Hematocrit 31.6 % (36.0-47.0) Mean Corpuscular Volume 94 fL (79-100) Mean Corpuscular Hemoglobin 30 pg (25-35) Mean Corpuscular Hemoglobin Concent 32 g/dL (31-37) Red Cell Distribution Width 16.0 % (11.5-14.5) Platelet Count 384 x10^3/uL (140-400) Neutrophils (%) (Auto) 78 % (31-73) Lymphocytes (%) (Auto) 13 % (24-48) Monocytes (%) (Auto) 7 % (0-9) Eosinophils (%) (Auto) 1 % (0-3) Basophils (%) (Auto) 1 % (0-3) Neutrophils # (Auto) 8.2 x10^3uL (1.8-7.7) Lymphocytes # (Auto) 1.4 x10^3/uL (1.0-4.8) Monocytes # (Auto) 0.8 x10^3/uL (0.0-1.1) Eosinophils # (Auto) 0.1 x10^3/uL (0.0-0.7) Basophils # (Auto) 0.1 x10^3/uL (0.0-0.2) Sodium Level 143 mmol/L (136-145) Potassium Level 3.4 mmol/L (3.5-5.1) Chloride Level 103 mmol/L (98-107) Carbon Dioxide Level 34 mmol/L (21-32) Anion Gap 6 (6-14) Blood Urea Nitrogen 13 mg/dL (7-20) Creatinine 0.8 mg/dL (0.6-1.0) Estimated GFR (Cockcroft-Gault) 69.6 Glucose Level 93 mg/dL (70-99) Calcium Level 8.4 mg/dL (8.5-10.1) Magnesium Level 2.0 mg/dL (1.8-2.4) Thyroid Stimulating Hormone (TSH) 0.768 uIU/mL (0.358-3.74) Medications Active Scripts Medications Dose Route/Sig Max Daily Dose Days Date Category Dose Instructions Prednisone 10 Mg Tablet 10 Mg PO UD 06/17/16 Rx Take 3 tablets by mouth daily for 3 days, then take 2 tablets by mouth daily for 3 days, then take 1 tablet by mouth daily for 3 days, then resume home dose. Levaquin (Levofloxacin) 750 Mg Tablet 1 Tab PO QODAY 06/17/16 Rx Azithromycin Tablet (Azithromycin) 250 Mg Tablet 250 Mg PO DAILY 06/12/16 Reported Spironolactone 25 Mg Tablet 1 Tab PO DAILY 06/12/16 Reported Atorvastatin Calcium 10 Mg Tablet 1 Tab PO HS 07/15/15 Reported NEXT DOSE: 07/15/15 PM Amlodipine Besylate 5 Mg Tablet 5 Mg PO DAILY 07/15/15 Reported NEXT DOSE: 07/16/15 AM Prednisolone Acetate 5 Ml Drops.susp 5 Ml OP 07/10/15 Reported Furosemide 20 Mg Tablet Unknown Dose PO DAILY 01/05/15 Reported NEXT DOSE: 07/16/15 AM Prednisone 5 Mg Tablet 10 Mg PO QODAY 03/06/14 Reported NEXT DOSE: START 07/16/15 40MG DAILY X2 DAYS 30MG DAILY X2 DAYS 20MG DAILY X2 DAYS 10MG DAILY X2 DAYS STOP TAKING AFTER LAST PILL Plavix (Clopidogrel Bisulfate) 75 Mg Tablet 75 Mg PO DAILY 02/28/14 Reported NEXT DOSE: 07/16/15 AM Aspir 81 (Aspirin) 81 Mg Tablet.dr 81 Mg PO DAILY 02/28/14 Reported NEXT DOSE: 07/16/15 AM Metoprolol Tartrate 25 Mg Tablet 12.5 Mg PO DAILY 02/28/14 Reported NEXT DOSE: 07/16/15 AM Alprazolam 0.25 Mg Tab.rapdis 0.25 Mg PO PRN 02/25/14 Reported NEXT DOSE: 07/15/15 AFTERNOON Daliresp (Roflumilast) 500 Mcg Tablet 250 Mcg PO DAILY 02/25/14 Reported NEXT DOSE: 07/16/15 AM Albuterol Sulfate Neb Soln (Albuterol Sulfate) 1.25 Mg/3 Ml Vial.neb 1.25 Mg IH Q3HRS PRN 02/25/14 Reported Spiriva (Tiotropium Makinen) 18 Mcg Cap.w.dev 1 Puff IH DAILY 02/25/14 Reported Impression . FULL CONSULT OK TO PROCEED WITH SURGERY IF NEEDED SISILLO,SABATO MD March 04, 2017 15:49
[2017-03-04 19:30] VITALS: BP 185/58
[2017-03-04] MEDS: FAMOTIDINE 20 MG TABLET. PO SCH (21:41)
[2017-03-04 23:35] VITALS: BP 143/43
--- NOTE | 2017-03-05 02:38 | CONS ---
DATE OF CONSULTATION: 03/04/2017 ATTENDING PHYSICIAN: Dr. Schofield. REASON FOR CONSULTATION: The patient is seen in pulmonary consultation at the request of Dr. Schofield for COPD. On preoperative evaluation, the patient has cholelithiasis. HISTORY OF PRESENT ILLNESS: The patient is a 76-year-old female well known to me from previous hospitalization and office visits. She has chronic respiratory failure, normally on 3 liters of oxygen supplementation. She presented at this time, because of abdominal pain and there was some concern about the possibility of requiring surgery. The patient was also complaining of back pain, right-sided abdominal pain x 3 days and some constipation. Every time she felt she was going to have periods of emesis. She denies fever, chills, no diarrhea. PAST MEDICAL HISTORY: 1. Chronic respiratory failure on 3 liters of oxygen supplementation. 2. Abdominal aortic aneurysm, evaluated on this admission and not a surgical candidate. 3. COPD. 4. DVT. 5. Hypertension. 6. Myocardial infarction. 7. Pneumonia. PAST SURGICAL HISTORY: Status post cataract extraction and hysterectomy. ALLERGIES: No known drug allergies. FAMILY HISTORY: Coronary artery disease. SOCIAL HISTORY: She continues to smoke on and off. REVIEW OF SYSTEMS: As indicated above, otherwise, a 10-point system was reviewed and negative. PHYSICAL EXAMINATION: VITAL SIGNS: Stable. O2 saturation was greater than 92%, currently on 3 liters. HEENT: Eyes, the sclerae were nonicteric. NECK: Jugular venous distention was not elevated. No lymphadenopathy. CHEST: Full expansion. LUNGS: Adequate airway flow with no wheezes. CARDIOVASCULAR: Regular rate and rhythm with S1, S2, no S3. ABDOMEN: Soft, nontender, nondistended. EXTREMITIES: No clubbing, cyanosis or edema. NEUROLOGIC: The patient was awake, alert, following commands. A detailed neuro exam was not performed. LABORATORY DATA: Reviewed. White count was normal. Hemoglobin and hematocrit were noted. UA was noted. Electrolytes were noted. Potassium is slightly low. Troponin was not elevated. Chest x-ray was normal. IMPRESSION: 1. Chronic respiratory failure. 2. Cholelithiasis, requiring possible surgical intervention. 3. Abdominal aortic aneurysm seen by Vascular Surgery, not a surgical candidate. 4. Right upper quadrant pain secondary to cholelithiasis. 5. Tobacco dependence. 6. Chronic anemia. PLAN: From a pulmonary standpoint of view, the patient's respiratory status is stable enough to undergo surgery. She is certainly at a higher risk for postop pulmonary complications including bronchitis, pneumonia and respiratory failure. With that being said, I will defer timing of surgery to the surgeon. I do appreciate the privilege in sharing in the patient's care. EDGARD MOREL MD DR: LAKSHMI/humble JOB#: [id number] / [id number]
[2017-03-05 03:35] VITALS: BP 158/47
[2017-03-05 05:46] LABS: CHOLESTEROL/HDL RATIO 3.2
[2017-03-05 07:00] VITALS: BP 167/62
[2017-03-05] MEDS: ALBUTEROL SULFATE 2.5 MG/3 ML NEBU. NEB SCH ×4 (07:28→19:42)
--- NOTE | 2017-03-05 08:05 | CARD ---
APPROVED REPORT EXAM: Two-dimensional and M-mode echocardiogram with Doppler and color Doppler. Other Information Quality : GoodHR: 63bpm Rhythm : NSR INDICATION Cardiac Disease: CAD Hypertension 2D DIMENSIONS RVDd2.3 (2.9-3.5cm)Left Atrium(2D)3.5 (1.6-4.0cm) IVSd1.0 (0.7-1.1cm)Aortic Root(2D)2.6 (2.0-3.7cm) LVDd4.7 (3.9-5.9cm)LVOT Diameter1.9 (1.8-2.4cm) PWd1.0 (0.7-1.1cm)LVDs3.1 (2.5-4.0cm) FS (%) 34.0 %SV64.6 ml LVEF(%)62.9 (>50%) Aortic Valve AoV Peak Thiago.177.9cm/sAoV VTI43.9cm AO Peak GR.12.7mmHgLVOT Peak Thiago.131.5cm/s AO Mean GR.7mmHgAVA (VMAX)2.15cm2 AI P 1/2 [id number] Mitral Valve MV E Zisredbl941.6cm/sMV E Peak Gr.6mmHg MV DECEL [id number] A Ncsunnks769.3cm/s MV E Mean Gr.3mmHgE/A Ratio0.8 MV A [id number] Tricuspid Valve TR P. Ywflplwg181wc/sTR Peak Gr.31mmHg Pulmonary Vein S1 Lmgzwvtw78.2cm/sD2 Bvgtbtta96.4cm/s PVa [id number] LEFT VENTRICLE The left ventricle is normal size. There is normal left ventricular wall thickness. The left ventricu lar systolic function is normal. The Ejection Fraction is 60-65%. There is normal LV segmental wall m otion. Transmitral Doppler flow pattern is Grade I-abnormal relaxation pattern. RIGHT VENTRICLE The right ventricle is normal size. There is normal right ventricular wall thickness. The right ventr icular systolic function is normal. ATRIA The left atrium size is normal. The right atrium size is normal. The interatrial septum is intact wit h no evidence for an atrial septal defect or patent foramen ovale as noted on 2-D or Doppler imaging. AORTIC VALVE The aortic valve is mildly sclerotic. The aortic valve is trileaflet. Doppler and Color Flow revealed moderate aortic regurgitation. There is no significant aortic valvular stenosis. MITRAL VALVE Mitral annular calcification is moderate. The mitral valve leaflets are thickened. There is no eviden ce of mitral valve prolapse. There is no mitral valve stenosis. Doppler and Color Flow revealed trace mitral regurgitation. TRICUSPID VALVE Doppler and Color Flow revealed trace tricuspid regurgitation. The pulmonary artery systolic pressure is estimated at 33 mmHg. There is mild pulmonary hypertension. PULMONIC VALVE Doppler and Color Flow revealed trace pulmonic valvular regurgitation. There is no pulmonic valvular stenosis. GREAT VESSELS The aortic root is normal in size. The ascending aorta is normal in size. The pulmonary artery is nor mal. The IVC is normal in size and collapses >50% with inspiration. PERICARDIAL EFFUSION There is no evidence of significant pericardial effusion. Critical Notification Critical Value: No <Conclusion> The left ventricular systolic function is normal. The Ejection Fraction is 60-65%. There is normal LV segmental wall motion. Transmitral Doppler flow pattern is Grade I-abnormal relaxation pattern. Moderate aortic regurgitation. Trace mitral regurgitation. Trace tricuspid regurgitation. The pulmonary artery systolic pressure is estimated at 33 mmHg. There is no evidence of significant pericardial effusion.
[2017-03-05] MEDS: VERAPAMIL SR 120 MG TABLET.ER. PO SCH (08:27)
[2017-03-05] MEDS: METOPROLOL SUCC 24HR ER 25 MG TAB.ER.24H. PO SCH ×2 (08:27→21:27)
[2017-03-05] MEDS: POLYETHYLENE GLYCOL 3350 17 GM PACKET. PO SCH ×2 (08:28→21:26)
--- NOTE | 2017-03-05 08:55 | PDOC ---
SURGICAL PROGRESS NOTE Subjective Feeling good, no nausea would like regular food. Pain on the right side is only when she is moving not after eating. Vital Signs Vital Signs Date Time Temp Pulse Resp B/P (MAP) Pulse Ox O2 Delivery O2 Flow Rate FiO2 03/05/17 08:27 82 167/62 03/05/17 07:29 96 Nasal Cannula 3.0 03/05/17 07:00 97.6 20 97.6 I&O Intake and Output 03/05/17 07:00 Intake Total 2126 ml Balance 2126 ml Intake Oral 2030 ml IV Total 96 ml # Voids 4 PATIENT HAS A JOSEPH: No General: Alert, Oriented X3, Cooperative, No acute distress Abdomen: Normal bowel sounds, Soft, Other (TTP lower right abdomen not over the GB) Labs Laboratory Tests Test 03/03/17 13:15 03/03/17 18:40 03/04/17 03:35 03/05/17 04:20 Troponin I Quantitative < 0.017 ng/mL (0.000-0.055) 0.019 ng/mL (0.000-0.055) White Blood Count 10.6 x10^3/uL (4.0-11.0) Red Blood Count 3.36 x10^6/uL (3.50-5.40) Hemoglobin 10.0 g/dL (12.0-15.5) Hematocrit 31.6 % (36.0-47.0) Mean Corpuscular Volume 94 fL (79-100) Mean Corpuscular Hemoglobin 30 pg (25-35) Mean Corpuscular Hemoglobin Concent 32 g/dL (31-37) Red Cell Distribution Width 16.0 % (11.5-14.5) Platelet Count 384 x10^3/uL (140-400) Neutrophils (%) (Auto) 78 % (31-73) Lymphocytes (%) (Auto) 13 % (24-48) Monocytes (%) (Auto) 7 % (0-9) Eosinophils (%) (Auto) 1 % (0-3) Basophils (%) (Auto) 1 % (0-3) Neutrophils # (Auto) 8.2 x10^3uL (1.8-7.7) Lymphocytes # (Auto) 1.4 x10^3/uL (1.0-4.8) Monocytes # (Auto) 0.8 x10^3/uL (0.0-1.1) Eosinophils # (Auto) 0.1 x10^3/uL (0.0-0.7) Basophils # (Auto) 0.1 x10^3/uL (0.0-0.2) Sodium Level 143 mmol/L (136-145) Potassium Level 3.4 mmol/L (3.5-5.1) Chloride Level 103 mmol/L (98-107) Carbon Dioxide Level 34 mmol/L (21-32) Anion Gap 6 (6-14) Blood Urea Nitrogen 13 mg/dL (7-20) Creatinine 0.8 mg/dL (0.6-1.0) Estimated GFR (Cockcroft-Gault) 69.6 Glucose Level 93 mg/dL (70-99) Calcium Level 8.4 mg/dL (8.5-10.1) Magnesium Level 2.0 mg/dL (1.8-2.4) Thyroid Stimulating Hormone (TSH) 0.768 uIU/mL (0.358-3.74) Triglycerides Level 106 mg/dL (0-150) Cholesterol Level 136 mg/dL (0-200) LDL Cholesterol, Calculated 72 mg/dL (0-100) VLDL Cholesterol, Calculated 21 mg/dL (0-40) Non-HDL Cholesterol Calculated 93 mg/dL (0-129) HDL Cholesterol 43 mg/dL (40-60) Cholesterol/HDL Ratio 3.2 Laboratory Tests Test 03/05/17 04:20 Triglycerides Level 106 mg/dL (0-150) Cholesterol Level 136 mg/dL (0-200) LDL Cholesterol, Calculated 72 mg/dL (0-100) VLDL Cholesterol, Calculated 21 mg/dL (0-40) Non-HDL Cholesterol Calculated 93 mg/dL (0-129) HDL Cholesterol 43 mg/dL (40-60) Cholesterol/HDL Ratio 3.2 I have reviewed the following U/S shows gallstones with no evidence of cholecystitis Problem List Problems Medical Problems: (1) Abdominal pain Status: Acute Assessment/Plan Atypical symptoms for cholecystitis without U/S evidence Would be inclined to feed patient and monitor symptoms as she is high risk for surgical complications. Problems: KATHY GOODWIN MD March 05, 2017 08:55
[2017-03-05] MEDS: HYDROcodone/APAP 5/325MG 1 TAB TABLET PO PRN ×3 (10:01→22:52)
[2017-03-05 11:00] VITALS: BP 163/61
--- NOTE | 2017-03-05 12:04 | PDOC ---
PULMONARY PROGRESS NOTES Subjective PT WITH NO INCREASE SOA CONTINUE PAIN Vitals Vital Signs Date Time Temp Pulse Resp B/P (MAP) Pulse Ox O2 Delivery O2 Flow Rate FiO2 03/05/17 11:01 Nasal Cannula 3.0 03/05/17 11:01 16 94 03/05/17 11:00 97.7 83 163/61 (95) 97.7 ROS: No Nausea, No Chest Pain, No Increase Cough General: Alert, Oriented X4, No acute distress Lungs: Clear Cardiovascular: S1, S2 Abdomen: Soft, Non-tender Neuro Exam: Alert Extremities: No Edema Skin: Warm Labs Laboratory Tests Test 03/03/17 13:15 03/03/17 18:40 03/04/17 03:35 03/05/17 04:20 Troponin I Quantitative < 0.017 ng/mL (0.000-0.055) 0.019 ng/mL (0.000-0.055) White Blood Count 10.6 x10^3/uL (4.0-11.0) Red Blood Count 3.36 x10^6/uL (3.50-5.40) Hemoglobin 10.0 g/dL (12.0-15.5) Hematocrit 31.6 % (36.0-47.0) Mean Corpuscular Volume 94 fL (79-100) Mean Corpuscular Hemoglobin 30 pg (25-35) Mean Corpuscular Hemoglobin Concent 32 g/dL (31-37) Red Cell Distribution Width 16.0 % (11.5-14.5) Platelet Count 384 x10^3/uL (140-400) Neutrophils (%) (Auto) 78 % (31-73) Lymphocytes (%) (Auto) 13 % (24-48) Monocytes (%) (Auto) 7 % (0-9) Eosinophils (%) (Auto) 1 % (0-3) Basophils (%) (Auto) 1 % (0-3) Neutrophils # (Auto) 8.2 x10^3uL (1.8-7.7) Lymphocytes # (Auto) 1.4 x10^3/uL (1.0-4.8) Monocytes # (Auto) 0.8 x10^3/uL (0.0-1.1) Eosinophils # (Auto) 0.1 x10^3/uL (0.0-0.7) Basophils # (Auto) 0.1 x10^3/uL (0.0-0.2) Sodium Level 143 mmol/L (136-145) Potassium Level 3.4 mmol/L (3.5-5.1) Chloride Level 103 mmol/L (98-107) Carbon Dioxide Level 34 mmol/L (21-32) Anion Gap 6 (6-14) Blood Urea Nitrogen 13 mg/dL (7-20) Creatinine 0.8 mg/dL (0.6-1.0) Estimated GFR (Cockcroft-Gault) 69.6 Glucose Level 93 mg/dL (70-99) Calcium Level 8.4 mg/dL (8.5-10.1) Magnesium Level 2.0 mg/dL (1.8-2.4) Thyroid Stimulating Hormone (TSH) 0.768 uIU/mL (0.358-3.74) Triglycerides Level 106 mg/dL (0-150) Cholesterol Level 136 mg/dL (0-200) LDL Cholesterol, Calculated 72 mg/dL (0-100) VLDL Cholesterol, Calculated 21 mg/dL (0-40) Non-HDL Cholesterol Calculated 93 mg/dL (0-129) HDL Cholesterol 43 mg/dL (40-60) Cholesterol/HDL Ratio 3.2 Laboratory Tests Test 03/05/17 04:20 Triglycerides Level 106 mg/dL (0-150) Cholesterol Level 136 mg/dL (0-200) LDL Cholesterol, Calculated 72 mg/dL (0-100) VLDL Cholesterol, Calculated 21 mg/dL (0-40) Non-HDL Cholesterol Calculated 93 mg/dL (0-129) HDL Cholesterol 43 mg/dL (40-60) Cholesterol/HDL Ratio 3.2 Medications Active Scripts Medications Dose Route/Sig Max Daily Dose Days Date Category Dose Instructions Prednisone 10 Mg Tablet 10 Mg PO UD 06/17/16 Rx Take 3 tablets by mouth daily for 3 days, then take 2 tablets by mouth daily for 3 days, then take 1 tablet by mouth daily for 3 days, then resume home dose. Levaquin (Levofloxacin) 750 Mg Tablet 1 Tab PO QODAY 06/17/16 Rx Azithromycin Tablet (Azithromycin) 250 Mg Tablet 250 Mg PO DAILY 06/12/16 Reported Spironolactone 25 Mg Tablet 1 Tab PO DAILY 06/12/16 Reported Atorvastatin Calcium 10 Mg Tablet 1 Tab PO HS 07/15/15 Reported NEXT DOSE: 07/15/15 PM Amlodipine Besylate 5 Mg Tablet 5 Mg PO DAILY 07/15/15 Reported NEXT DOSE: 07/16/15 AM Prednisolone Acetate 5 Ml Drops.susp 5 Ml OP 07/10/15 Reported Furosemide 20 Mg Tablet Unknown Dose PO DAILY 01/05/15 Reported NEXT DOSE: 07/16/15 AM Prednisone 5 Mg Tablet 10 Mg PO QODAY 03/06/14 Reported NEXT DOSE: START 07/16/15 40MG DAILY X2 DAYS 30MG DAILY X2 DAYS 20MG DAILY X2 DAYS 10MG DAILY X2 DAYS STOP TAKING AFTER LAST PILL Plavix (Clopidogrel Bisulfate) 75 Mg Tablet 75 Mg PO DAILY 02/28/14 Reported NEXT DOSE: 07/16/15 AM Aspir 81 (Aspirin) 81 Mg Tablet.dr 81 Mg PO DAILY 02/28/14 Reported NEXT DOSE: 07/16/15 AM Metoprolol Tartrate 25 Mg Tablet 12.5 Mg PO DAILY 02/28/14 Reported NEXT DOSE: 07/16/15 AM Alprazolam 0.25 Mg Tab.rapdis 0.25 Mg PO PRN 02/25/14 Reported NEXT DOSE: 07/15/15 AFTERNOON Daliresp (Roflumilast) 500 Mcg Tablet 250 Mcg PO DAILY 02/25/14 Reported NEXT DOSE: 07/16/15 AM Albuterol Sulfate Neb Soln (Albuterol Sulfate) 1.25 Mg/3 Ml Vial.neb 1.25 Mg IH Q3HRS PRN 02/25/14 Reported Spiriva (Tiotropium [place]) 18 Mcg Cap.w.dev 1 Puff IH DAILY 02/25/14 Reported Impression . 1. Chronic respiratory failure. 2. Cholelithiasis, requiring possible surgical intervention. 3. Abdominal aortic aneurysm seen by Vascular Surgery, not a surgical candidate. 4. Right upper quadrant pain ? secondary to cholelithiasis. 5. Tobacco dependence. 6. Chronic anemia. Plan . RESP STATUS IS COMPENSATED WILL CONTINUE THE SAME SURGEON NOTE APPRECIATED THANKS EDGARD MOREL MD March 05, 2017 12:04
--- NOTE | 2017-03-05 13:18 | PDOC ---
PROGRESS NOTES Chief Complaint Chief Complaint 1. AAA, 4 cm (6 mm biggetv than last inaging) 2. Severe COPD, end stage, O2 dependent 3. Symptomatic cholelithiasis 4. MOD to severe COPD 5. hypokalemia 6. AOCD 7. DNR History of Present Illness History of Present Illness Patient seen this am in and continues to have RUQ pain. Per patient. Dr. Hurt doesn't think the patient's issue is the gallbladder. Informed patient we would replace potassium. Will put in SNU eval today. Patient understands plan of action. Vitals Vitals Vital Signs Date Time Temp Pulse Resp B/P (MAP) Pulse Ox O2 Delivery O2 Flow Rate FiO2 03/05/17 11:01 Nasal Cannula 3.0 03/05/17 11:01 16 94 03/05/17 11:00 97.7 83 163/61 (95) 97.7 Physical Exam General: Alert, Oriented X3, Cooperative, No acute distress Heart: Regular rate, Normal S1, Normal S2, Other (tele: SR/ST/SVT; / DANIKA aortic; ? carotid bruit) Lungs: Clear Abdomen: Normal bowel sounds, Soft, Other (TTP lower right abdomen not over the GB) Extremities: No edema, Normal pulses Skin: No rashes, No significant lesion Labs LABS Laboratory Tests Test 03/05/17 04:20 Triglycerides Level 106 mg/dL (0-150) Cholesterol Level 136 mg/dL (0-200) LDL Cholesterol, Calculated 72 mg/dL (0-100) VLDL Cholesterol, Calculated 21 mg/dL (0-40) Non-HDL Cholesterol Calculated 93 mg/dL (0-129) HDL Cholesterol 43 mg/dL (40-60) Cholesterol/HDL Ratio 3.2 Review of Systems Review of Systems No PARISH/blurry vision No rashes Assessment and Plan Assessmemt and Plan Problems Medical Problems: (1) Abdominal pain Status: Acute 2. AAA, 4 cm (6 mm biggetv than last inaging) 3. Severe COPD, end stage, O2 dependent 4. Symptomatic cholelithiasis 5. MOD to severe COPD 6. hypokalemia 7. AOCD 8. DNR Plan: -Continue current medications and adjust accordingly as needed. -Administer 40 mEq KCl 1 tab PO. Last potassium was 3.4. -Continue speciality consultation. -Continue PT/OT. -Order SNU eval request. Problems: Comment Review of Relevant I have reviewed the following items gabby (where applicable) has been applied. Labs Laboratory Tests Test 03/03/17 13:15 03/03/17 18:40 03/04/17 03:35 03/05/17 04:20 Troponin I Quantitative < 0.017 ng/mL (0.000-0.055) 0.019 ng/mL (0.000-0.055) White Blood Count 10.6 x10^3/uL (4.0-11.0) Red Blood Count 3.36 x10^6/uL (3.50-5.40) Hemoglobin 10.0 g/dL (12.0-15.5) Hematocrit 31.6 % (36.0-47.0) Mean Corpuscular Volume 94 fL (79-100) Mean Corpuscular Hemoglobin 30 pg (25-35) Mean Corpuscular Hemoglobin Concent 32 g/dL (31-37) Red Cell Distribution Width 16.0 % (11.5-14.5) Platelet Count 384 x10^3/uL (140-400) Neutrophils (%) (Auto) 78 % (31-73) Lymphocytes (%) (Auto) 13 % (24-48) Monocytes (%) (Auto) 7 % (0-9) Eosinophils (%) (Auto) 1 % (0-3) Basophils (%) (Auto) 1 % (0-3) Neutrophils # (Auto) 8.2 x10^3uL (1.8-7.7) Lymphocytes # (Auto) 1.4 x10^3/uL (1.0-4.8) Monocytes # (Auto) 0.8 x10^3/uL (0.0-1.1) Eosinophils # (Auto) 0.1 x10^3/uL (0.0-0.7) Basophils # (Auto) 0.1 x10^3/uL (0.0-0.2) Sodium Level 143 mmol/L (136-145) Potassium Level 3.4 mmol/L (3.5-5.1) Chloride Level 103 mmol/L (98-107) Carbon Dioxide Level 34 mmol/L (21-32) Anion Gap 6 (6-14) Blood Urea Nitrogen 13 mg/dL (7-20) Creatinine 0.8 mg/dL (0.6-1.0) Estimated GFR (Cockcroft-Gault) 69.6 Glucose Level 93 mg/dL (70-99) Calcium Level 8.4 mg/dL (8.5-10.1) Magnesium Level 2.0 mg/dL (1.8-2.4) Thyroid Stimulating Hormone (TSH) 0.768 uIU/mL (0.358-3.74) Triglycerides Level 106 mg/dL (0-150) Cholesterol Level 136 mg/dL (0-200) LDL Cholesterol, Calculated 72 mg/dL (0-100) VLDL Cholesterol, Calculated 21 mg/dL (0-40) Non-HDL Cholesterol Calculated 93 mg/dL (0-129) HDL Cholesterol 43 mg/dL (40-60) Cholesterol/HDL Ratio 3.2 Laboratory Tests Test 03/05/17 04:20 Triglycerides Level 106 mg/dL (0-150) Cholesterol Level 136 mg/dL (0-200) LDL Cholesterol, Calculated 72 mg/dL (0-100) VLDL Cholesterol, Calculated 21 mg/dL (0-40) Non-HDL Cholesterol Calculated 93 mg/dL (0-129) HDL Cholesterol 43 mg/dL (40-60) Cholesterol/HDL Ratio 3.2 Medications Current Medications Fentanyl Citrate (Fentanyl 2ml Vial) 25 mcg PRN Q15MIN PRN IV PAIN GREATER THAN 3/10 Last administered on 03/03/17 08:49; Start 03/03/17 at 06:15; Stop at 06:14; Status DC Ondansetron HCl (Zofran) 4 mg 1X ONCE IV Last administered on 03/03/17 06:40 ; Start 03/03/17 at 06:30; Stop 03/03/17 at 06:31; Status DC Sodium Chloride 500 ml @ 500 mls/hr 1X ONCE IV Last administered on 06:40; Start 03/03/17 at 06:30; Stop 03/03/17 at 07:29; Status DC Iohexol (Omnipaque 300 Mg/ml) 75 ml 1X ONCE IV Last administered on 03/03/17 07:01; Start 03/03/17 at 07:00; Stop 03/03/17 at 07:01; Status DC Info (Do NOT chart on this entry -- for MONITORING) 1 each PRN DAILY PRN MC SEE COMMENTS; Start 03/03/17 at 06:30; Stop 03/05/17 at 06:29; Status DC Metoprolol Tartrate (Lopressor) 5 mg 1X ONCE IVP Last administered on 08:10; Start 03/03/17 at 08:00; Stop 03/03/17 at 08:01; Status DC Ceftriaxone Sodium 50 ml @ 100 mls/hr 1X ONCE IV Last administered on 10:19; Start 03/03/17 at 10:15; Stop 03/03/17 at 10:44; Status DC Ceftriaxone Sodium 1 gm/ Sodium Chloride 50 ml @ 100 mls/hr Q24H IV Last administered on 03/05/17 10:02; Start 03/04/17 at 11:00 Diphenhydramine HCl (Benadryl) 25 mg 1X ONCE IVP Last administered on 10:19; Start 03/03/17 at 10:15; Stop 03/03/17 at 10:20; Status DC Ondansetron HCl (Zofran) 4 mg PRN Q8HRS PRN IV NAUSEA/VOMITING Last administered on 03/03/17 12:21; Start 03/03/17 at 10:30; Stop 03/04/17 at 10:29 ; Status DC Fentanyl Citrate (Fentanyl 2ml Vial) 50 mcg PRN Q1HR PRN IV PAIN Last administered on 03/03/17 18:01; Start 03/03/17 at 10:30; Stop 03/04/17 at 10:29 ; Status DC Acetaminophen (Tylenol) 650 mg PRN Q4HRS PRN PO FEVER; Start 03/03/17 at 10:30 ; Stop 03/04/17 at 10:29; Status DC Polyethylene Glycol (miraLAX PACKET) 17 gm DAILY PO Last administered on 08:35; Start 03/03/17 at 15:00; Stop 03/04/17 at 13:51; Status DC Famotidine (Pepcid) 20 mg QHS PO Last administered on 03/04/17 21:41; Start at 21:00 Albuterol/ Ipratropium (Duoneb) 3 ml 1X ONCE NEB Last administered on 18:04; Start 03/03/17 at 18:00; Stop 03/03/17 at 18:01; Status DC Albuterol Sulfate (Ventolin Neb Soln) 2.5 mg RTQID NEB Last administered on 11:01; Start 03/03/17 at 20:00 Albuterol Sulfate (Ventolin Neb Soln) 2.5 mg PRN Q4HRS PRN NEB SHORTNESS OF BREATH; Start 03/03/17 at 19:45 Acetaminophen/ Hydrocodone Bitart (Lortab 5/325) 1 tab Q6HRS PRN PO PAIN Last administered on 03/05/17 10:01; Start 03/03/17 at 19:45 Morphine Sulfate 2 mg PRN Q2HR PRN IV PAIN; Start 03/03/17 at 19:45 Metoprolol Succinate (Toprol Xl) 12.5 mg DAILY PO Last administered on 08:37; Start 03/03/17 at 20:00; Stop 03/04/17 at 13:42; Status DC Labetalol HCl (Normodyne) 10 mg PRN Q2HR PRN IVP HYPERTENSION, SEE COMMENTS Last administered on 03/04/17 21:42; Start 03/03/17 at 19:45 Guaifenesin (Robitussin Dm) 10 ml PRN Q6HRS PRN PO COUGH Last administered on 05:51; Start 03/04/17 at 09:45 Potassium Chloride (Klor-Con) 40 meq 1X ONCE PO Last administered on 10:51; Start 03/04/17 at 10:00; Stop 03/04/17 at 10:01; Status DC Metoprolol Succinate (Toprol Xl) 12.5 mg BID PO Last administered on 03/05/17 08:27; Start 03/04/17 at 21:00 Verapamil HCl (Calan Sr) 120 mg DAILY PO Last administered on 03/05/17 08:27; Start 03/04/17 at 13:45 Polyethylene Glycol (miraLAX PACKET) 17 gm BID PO Last administered on 08:28; Start 03/04/17 at 21:00 Active Scripts Active Prednisone 10 Mg Tablet 10 Mg PO UD Take 3 tablets by mouth daily for 3 days, then take 2 tablets by mouth daily for 3 days, then take 1 tablet by mouth daily for 3 days, then resume home dose. Levaquin (Levofloxacin) 750 Mg Tablet 1 Tab PO QODAY Reported Azithromycin Tablet (Azithromycin) 250 Mg Tablet 250 Mg PO DAILY Spironolactone 25 Mg Tablet 1 Tab PO DAILY Atorvastatin Calcium 10 Mg Tablet 1 Tab PO HS NEXT DOSE: 07/15/15 PM Amlodipine Besylate 5 Mg Tablet 5 Mg PO DAILY NEXT DOSE: 07/16/15 AM Prednisolone Acetate 5 Ml Drops.susp 5 Ml OP Furosemide 20 Mg Tablet Unknown Dose PO DAILY NEXT DOSE: 07/16/15 AM Prednisone 5 Mg Tablet 10 Mg PO QODAY NEXT DOSE: START 07/16/15 40MG DAILY X2 DAYS 30MG DAILY X2 DAYS 20MG DAILY X2 DAYS 10MG DAILY X2 DAYS STOP TAKING AFTER LAST PILL Plavix (Clopidogrel Bisulfate) 75 Mg Tablet 75 Mg PO DAILY NEXT DOSE: 07/16/15 AM Aspir 81 (Aspirin) 81 Mg Tablet.dr 81 Mg PO DAILY NEXT DOSE: 07/16/15 AM Metoprolol Tartrate 25 Mg Tablet 12.5 Mg PO DAILY NEXT DOSE: 07/16/15 AM Alprazolam 0.25 Mg Tab.rapdis 0.25 Mg PO PRN NEXT DOSE: 07/15/15 AFTERNOON Daliresp (Roflumilast) 500 Mcg Tablet 250 Mcg PO DAILY NEXT DOSE: 07/16/15 AM Albuterol Sulfate Neb Soln (Albuterol Sulfate) 1.25 Mg/3 Ml Vial.neb 1.25 Mg IH Q3HRS PRN Spiriva (Tiotropium [place]) 18 Mcg Cap.w.dev 1 Puff IH DAILY Vitals/I & O Vital Sign - Last 24 Hours 03/04/17 03/04/17 03/04/17 03/04/17 14:25 14:25 14:48 15:00 Temp 98.1 98.1 Pulse 82 76 Resp 18 B/P (MAP) 170/45 180/44 (89) Pulse Ox 95 93 O2 Delivery Nasal Cannula Nasal Cannula Nasal Cannula O2 Flow Rate 3.0 4.0 03/04/17 03/04/17 03/04/17 03/04/17 19:30 20:30 20:54 21:41 Temp 98.3 98.3 Pulse 105 105 Resp 24 B/P (MAP) 185/58 (100) 185/58 Pulse Ox 91 89 O2 Delivery Nasal Cannula Nasal Cannula Nasal Cannula O2 Flow Rate 3.0 4.0 3.0 03/04/17 03/04/17 03/04/17 03/05/17 21:42 21:46 23:35 03:35 Temp 97.7 98.3 97.7 98.3 Pulse 105 72 87 Resp 20 22 B/P (MAP) 185/58 143/43 (76) 158/47 (84) Pulse Ox 90 90 O2 Delivery Nasal Cannula Nasal Cannula Nasal Cannula O2 Flow Rate 4.0 3.0 3.0 03/05/17 03/05/17 03/05/17 03/05/17 07:00 07:29 08:00 08:27 Temp 97.6 97.6 Pulse 82 82 Resp 20 B/P (MAP) 167/62 (97) 167/62 Pulse Ox 91 96 O2 Delivery Nasal Cannula Nasal Cannula Nasal Cannula O2 Flow Rate 3.0 3.0 4.0 03/05/17 03/05/17 03/05/17 03/05/17 08:27 10:01 11:00 11:01 Temp 97.7 97.7 Pulse 82 83 Resp 16 20 16 B/P (MAP) 167/62 163/61 (95) Pulse Ox 96 94 94 O2 Delivery Nasal Cannula Nasal Cannula Nasal Cannula O2 Flow Rate 4.0 3.0 3.0 03/05/17 11:01 O2 Delivery Nasal Cannula O2 Flow Rate 3.0 Intake and Output 03/04/17 03/04/17 03/05/17 15:00 23:00 07:00 Intake Total 336 ml 1500 ml 290 ml Balance 336 ml 1500 ml 290 ml ANTON LEBRON K III DO March 05, 2017 13:18
[2017-03-05] MEDS ORDERED: POTASSIUM CHLORIDE 20 MEQ TABLET.ER. PO ONE (13:30)
[2017-03-05 15:00] VITALS: BP 171/67
[2017-03-05] MEDS: LABETALOL 20 MG/4 ML DISP.SYRIN. IVP PRN (15:13)
[2017-03-05 19:00] VITALS: BP 155/62
[2017-03-05] MEDS: FAMOTIDINE 20 MG TABLET. PO SCH (21:26)
[2017-03-05 23:00] VITALS: BP 160/64
[2017-03-06 03:00] VITALS: BP 152/69
[2017-03-06 07:00] VITALS: BP 167/65
[2017-03-06] MEDS: ALBUTEROL SULFATE 2.5 MG/3 ML NEBU. NEB SCH ×4 (07:07→19:10)
[2017-03-06] MEDS: VERAPAMIL SR 120 MG TABLET.ER. PO SCH (07:25)
[2017-03-06] MEDS: HYDROcodone/APAP 5/325MG 1 TAB TABLET PO PRN ×2 (07:26→21:55)
[2017-03-06] MEDS: POLYETHYLENE GLYCOL 3350 17 GM PACKET. PO SCH ×2 (07:26→21:00)
[2017-03-06] MEDS: METOPROLOL SUCC 24HR ER 25 MG TAB.ER.24H. PO SCH ×2 (07:26→21:55)
--- NOTE | 2017-03-06 09:00 | PDOC ---
PULMONARY PROGRESS NOTES Subjective PT WITH NO INCREASE SOA CONTINUE PAIN Vitals Vital Signs Date Time Temp Pulse Resp B/P (MAP) Pulse Ox O2 Delivery O2 Flow Rate FiO2 03/06/17 08:26 16 94 Nasal Cannula 3.0 03/06/17 07:26 73 152/69 03/06/17 07:00 97.5 97.5 ROS: No Nausea, No Chest Pain, No Increase Cough General: Alert, Oriented X4, No acute distress Lungs: Clear Cardiovascular: S1, S2 Abdomen: Soft, Non-tender Neuro Exam: Alert Extremities: No Edema Skin: Warm Labs Laboratory Tests Test 03/05/17 04:20 Triglycerides Level 106 mg/dL (0-150) Cholesterol Level 136 mg/dL (0-200) LDL Cholesterol, Calculated 72 mg/dL (0-100) VLDL Cholesterol, Calculated 21 mg/dL (0-40) Non-HDL Cholesterol Calculated 93 mg/dL (0-129) HDL Cholesterol 43 mg/dL (40-60) Cholesterol/HDL Ratio 3.2 Medications Active Scripts Medications Dose Route/Sig Max Daily Dose Days Date Category Dose Instructions Prednisone 10 Mg Tablet 10 Mg PO UD 06/17/16 Rx Take 3 tablets by mouth daily for 3 days, then take 2 tablets by mouth daily for 3 days, then take 1 tablet by mouth daily for 3 days, then resume home dose. Levaquin (Levofloxacin) 750 Mg Tablet 1 Tab PO QODAY 06/17/16 Rx Azithromycin Tablet (Azithromycin) 250 Mg Tablet 250 Mg PO DAILY 06/12/16 Reported Spironolactone 25 Mg Tablet 1 Tab PO DAILY 06/12/16 Reported Atorvastatin Calcium 10 Mg Tablet 1 Tab PO HS 07/15/15 Reported NEXT DOSE: 07/15/15 PM Amlodipine Besylate 5 Mg Tablet 5 Mg PO DAILY 07/15/15 Reported NEXT DOSE: 07/16/15 AM Prednisolone Acetate 5 Ml Drops.susp 5 Ml OP 07/10/15 Reported Furosemide 20 Mg Tablet Unknown Dose PO DAILY 01/05/15 Reported NEXT DOSE: 07/16/15 AM Prednisone 5 Mg Tablet 10 Mg PO QODAY 03/06/14 Reported NEXT DOSE: START 07/16/15 40MG DAILY X2 DAYS 30MG DAILY X2 DAYS 20MG DAILY X2 DAYS 10MG DAILY X2 DAYS STOP TAKING AFTER LAST PILL Plavix (Clopidogrel Bisulfate) 75 Mg Tablet 75 Mg PO DAILY 02/28/14 Reported NEXT DOSE: 07/16/15 AM Aspir 81 (Aspirin) 81 Mg Tablet.dr 81 Mg PO DAILY 02/28/14 Reported NEXT DOSE: 07/16/15 AM Metoprolol Tartrate 25 Mg Tablet 12.5 Mg PO DAILY 02/28/14 Reported NEXT DOSE: 07/16/15 AM Alprazolam 0.25 Mg Tab.rapdis 0.25 Mg PO PRN 02/25/14 Reported NEXT DOSE: 07/15/15 AFTERNOON Daliresp (Roflumilast) 500 Mcg Tablet 250 Mcg PO DAILY 02/25/14 Reported NEXT DOSE: 07/16/15 AM Albuterol Sulfate Neb Soln (Albuterol Sulfate) 1.25 Mg/3 Ml Vial.neb 1.25 Mg IH Q3HRS PRN 02/25/14 Reported Spiriva (Tiotropium [place]) 18 Mcg Cap.w.dev 1 Puff IH DAILY 02/25/14 Reported Impression . 1. Chronic respiratory failure. 2. Cholelithiasis, requiring possible surgical intervention. 3. Abdominal aortic aneurysm seen by Vascular Surgery, not a surgical candidate. 4. Right upper quadrant pain ? secondary to cholelithiasis. 5. Tobacco dependence. 6. Chronic anemia. Plan . AGREE WITH SURGEON PT AT HIGH RISK FOR INTERVENTION RESP STATUS IS COMPENSATED WILL CONTINUE THE SAME SURGEON NOTE APPRECIATED EDGARD MOREL MD March 06, 2017 09:00
[2017-03-06 11:00] VITALS: BP 154/65
[2017-03-06] MEDS: ONDANSETRON PF 4 MG/2 ML VIAL. IV PRN ×2 (11:09→21:54)
--- NOTE | 2017-03-06 11:32 | PDOC ---
SURGICAL PROGRESS NOTE Subjective Had episode of dizziness after BM this morning, having right side pain, no nausea. Tolerating clears Vital Signs Vital Signs Date Time Temp Pulse Resp B/P (MAP) Pulse Ox O2 Delivery O2 Flow Rate FiO2 03/06/17 11:08 Nasal Cannula 3.0 03/06/17 11:00 97.7 81 20 154/65 (94) 98 97.7 I&O Intake and Output 03/06/17 07:00 Intake Total 450 ml Balance 450 ml Intake Oral 350 ml Blood Product IV Normal Saline Flush 100 ml PATIENT HAS A JOSEPH: No General: Alert, Oriented X3, Cooperative, No acute distress Abdomen: Normal bowel sounds, Soft, Other (TTP right side) Labs Laboratory Tests Test 03/05/17 04:20 Triglycerides Level 106 mg/dL (0-150) Cholesterol Level 136 mg/dL (0-200) LDL Cholesterol, Calculated 72 mg/dL (0-100) VLDL Cholesterol, Calculated 21 mg/dL (0-40) Non-HDL Cholesterol Calculated 93 mg/dL (0-129) HDL Cholesterol 43 mg/dL (40-60) Cholesterol/HDL Ratio 3.2 Problem List Problems Medical Problems: (1) Abdominal pain Status: Acute Assessment/Plan Cholelithiasis with out evidence of cholecystitis Adv diet, check LFT's Poor surgical candidate Problems: KATHY GOODWIN MD March 06, 2017 11:32
[2017-03-06] MEDS ORDERED: ALBUMIN HUMAN 25% 100 ML IV ONE (14:00)
--- NOTE | 2017-03-06 14:08 | PDOC ---
PROGRESS NOTES Chief Complaint Chief Complaint AAA, 4 cm (6 mm bigger than last imaging) Abdominal pain Severe COPD, end stage, O2 dependent Symptomatic cholelithiasis MOD to severe COPD Hypokalemia AOCD DNR History of Present Illness History of Present Illness Patient was lying in bed in NAD this am States she still has abdominal pain Discussed supplementing albumin and potassium, patient was agreeable Discussed care with nurse Vitals Vitals Vital Signs Date Time Temp Pulse Resp B/P (MAP) Pulse Ox O2 Delivery O2 Flow Rate FiO2 03/06/17 11:08 Nasal Cannula 3.0 03/06/17 11:00 97.7 81 20 154/65 (94) 98 97.7 Physical Exam General: Alert, Oriented X3, Cooperative, No acute distress Heart: Regular rate, Normal S1, Normal S2, Other (1/6 DANIKA aortic; ? carotid bruit) Lungs: Clear, Other (no wheezing) Abdomen: Normal bowel sounds, Soft, Other (TTP right side) Extremities: No clubbing, Normal pulses, Other (mild non-pitting edema b/l hands and wrists) Skin: No rashes, No significant lesion Review of Systems Review of Systems General: denies weakness GI: denies N/V/D/C Assessment and Plan Assessmemt and Plan Problems Medical Problems: (1) Abdominal pain Status: Acute AAA, 4 cm (6 mm bigger than last imaging) Abdominal pain Severe COPD, end stage, O2 dependent Symptomatic cholelithiasis MOD to severe COPD Hypokalemia AOCD DNR Plan: -Surgery following- states she is "poor surgical candidate" -Advancing diet and checking LFT's per surgery -Hypokalemia - potassium IV 20 mEq x 2 -Albumin 25gm x 3days -SNU eval pending -Continue current meds -Recheck AM labs -Subspecialist input appreciated -Discharge disposition pending Problems: Comment Review of Relevant I have reviewed the following items gabby (where applicable) has been applied. Labs Laboratory Tests Test 03/05/17 04:20 Triglycerides Level 106 mg/dL (0-150) Cholesterol Level 136 mg/dL (0-200) LDL Cholesterol, Calculated 72 mg/dL (0-100) VLDL Cholesterol, Calculated 21 mg/dL (0-40) Non-HDL Cholesterol Calculated 93 mg/dL (0-129) HDL Cholesterol 43 mg/dL (40-60) Cholesterol/HDL Ratio 3.2 Microbiology 03/03/17 Urine Culture - Final, Complete 03/03/17 Urine Culture Result 1 (LISA) - Final, Complete Medications Current Medications Fentanyl Citrate (Fentanyl 2ml Vial) 25 mcg PRN Q15MIN PRN IV PAIN GREATER THAN 3/10 Last administered on 03/03/17 08:49; Start 03/03/17 at 06:15; Stop at 06:14; Status DC Ondansetron HCl (Zofran) 4 mg 1X ONCE IV Last administered on 03/03/17 06:40 ; Start 03/03/17 at 06:30; Stop 03/03/17 at 06:31; Status DC Sodium Chloride 500 ml @ 500 mls/hr 1X ONCE IV Last administered on 06:40; Start 03/03/17 at 06:30; Stop 03/03/17 at 07:29; Status DC Iohexol (Omnipaque 300 Mg/ml) 75 ml 1X ONCE IV Last administered on 03/03/17 07:01; Start 03/03/17 at 07:00; Stop 03/03/17 at 07:01; Status DC Info (Do NOT chart on this entry -- for MONITORING) 1 each PRN DAILY PRN MC SEE COMMENTS; Start 03/03/17 at 06:30; Stop 03/05/17 at 06:29; Status DC Metoprolol Tartrate (Lopressor) 5 mg 1X ONCE IVP Last administered on 08:10; Start 03/03/17 at 08:00; Stop 03/03/17 at 08:01; Status DC Ceftriaxone Sodium 50 ml @ 100 mls/hr 1X ONCE IV Last administered on 10:19; Start 03/03/17 at 10:15; Stop 03/03/17 at 10:44; Status DC Ceftriaxone Sodium 1 gm/ Sodium Chloride 50 ml @ 100 mls/hr Q24H IV Last administered on 03/05/17 10:02; Start 03/04/17 at 11:00; Stop 03/05/17 at 16:31 ; Status DC Diphenhydramine HCl (Benadryl) 25 mg 1X ONCE IVP Last administered on 10:19; Start 03/03/17 at 10:15; Stop 03/03/17 at 10:20; Status DC Ondansetron HCl (Zofran) 4 mg PRN Q8HRS PRN IV NAUSEA/VOMITING Last administered on 03/03/17 12:21; Start 03/03/17 at 10:30; Stop 03/04/17 at 10:29 ; Status DC Fentanyl Citrate (Fentanyl 2ml Vial) 50 mcg PRN Q1HR PRN IV PAIN Last administered on 03/03/17 18:01; Start 03/03/17 at 10:30; Stop 03/04/17 at 10:29 ; Status DC Acetaminophen (Tylenol) 650 mg PRN Q4HRS PRN PO FEVER; Start 03/03/17 at 10:30 ; Stop 03/04/17 at 10:29; Status DC Polyethylene Glycol (miraLAX PACKET) 17 gm DAILY PO Last administered on 08:35; Start 03/03/17 at 15:00; Stop 03/04/17 at 13:51; Status DC Famotidine (Pepcid) 20 mg QHS PO Last administered on 03/05/17 21:26; Start at 21:00 Albuterol/ Ipratropium (Duoneb) 3 ml 1X ONCE NEB Last administered on 18:04; Start 03/03/17 at 18:00; Stop 03/03/17 at 18:01; Status DC Albuterol Sulfate (Ventolin Neb Soln) 2.5 mg RTQID NEB Last administered on 11:08; Start 03/03/17 at 20:00 Albuterol Sulfate (Ventolin Neb Soln) 2.5 mg PRN Q4HRS PRN NEB SHORTNESS OF BREATH; Start 03/03/17 at 19:45 Acetaminophen/ Hydrocodone Bitart (Lortab 5/325) 1 tab Q6HRS PRN PO PAIN Last administered on 03/06/17 07:26; Start 03/03/17 at 19:45 Morphine Sulfate 2 mg PRN Q2HR PRN IV PAIN; Start 03/03/17 at 19:45 Metoprolol Succinate (Toprol Xl) 12.5 mg DAILY PO Last administered on 08:37; Start 03/03/17 at 20:00; Stop 03/04/17 at 13:42; Status DC Labetalol HCl (Normodyne) 10 mg PRN Q2HR PRN IVP HYPERTENSION, SEE COMMENTS Last administered on 03/05/17 15:13; Start 03/03/17 at 19:45 Guaifenesin (Robitussin Dm) 10 ml PRN Q6HRS PRN PO COUGH Last administered on 05:51; Start 03/04/17 at 09:45 Potassium Chloride (Klor-Con) 40 meq 1X ONCE PO Last administered on 10:51; Start 03/04/17 at 10:00; Stop 03/04/17 at 10:01; Status DC Metoprolol Succinate (Toprol Xl) 12.5 mg BID PO Last administered on 03/06/17 07:26; Start 03/04/17 at 21:00 Verapamil HCl (Calan Sr) 120 mg DAILY PO Last administered on 03/06/17 07:25; Start 03/04/17 at 13:45 Polyethylene Glycol (miraLAX PACKET) 17 gm BID PO Last administered on 07:26; Start 03/04/17 at 21:00 Potassium Chloride (Klor-Con) 40 meq 1X ONCE PO Last administered on 14:50; Start 03/05/17 at 13:30; Stop 03/05/17 at 13:31; Status DC Ondansetron HCl (Zofran) 4 mg PRN Q6HRS PRN IV NAUSEA/VOMITING Last administered on 03/06/17 11:09; Start 03/06/17 at 10:45 Potassium Chloride 100 ml @ 100 mls/hr Q1H IV ; Start 03/06/17 at 14:30; Stop 03/06/17 at 18:29 Active Scripts Active Prednisone 10 Mg Tablet 10 Mg PO UD Take 3 tablets by mouth daily for 3 days, then take 2 tablets by mouth daily for 3 days, then take 1 tablet by mouth daily for 3 days, then resume home dose. Levaquin (Levofloxacin) 750 Mg Tablet 1 Tab PO QODAY Reported Azithromycin Tablet (Azithromycin) 250 Mg Tablet 250 Mg PO DAILY Spironolactone 25 Mg Tablet 1 Tab PO DAILY Atorvastatin Calcium 10 Mg Tablet 1 Tab PO HS NEXT DOSE: 07/15/15 PM Amlodipine Besylate 5 Mg Tablet 5 Mg PO DAILY NEXT DOSE: 07/16/15 AM Prednisolone Acetate 5 Ml Drops.susp 5 Ml OP Furosemide 20 Mg Tablet Unknown Dose PO DAILY NEXT DOSE: 07/16/15 AM Prednisone 5 Mg Tablet 10 Mg PO QODAY NEXT DOSE: START 07/16/15 40MG DAILY X2 DAYS 30MG DAILY X2 DAYS 20MG DAILY X2 DAYS 10MG DAILY X2 DAYS STOP TAKING AFTER LAST PILL Plavix (Clopidogrel Bisulfate) 75 Mg Tablet 75 Mg PO DAILY NEXT DOSE: 07/16/15 AM Aspir 81 (Aspirin) 81 Mg Tablet.dr 81 Mg PO DAILY NEXT DOSE: 07/16/15 AM Metoprolol Tartrate 25 Mg Tablet 12.5 Mg PO DAILY NEXT DOSE: 07/16/15 AM Alprazolam 0.25 Mg Tab.rapdis 0.25 Mg PO PRN NEXT DOSE: 07/15/15 AFTERNOON Daliresp (Roflumilast) 500 Mcg Tablet 250 Mcg PO DAILY NEXT DOSE: 07/16/15 AM Albuterol Sulfate Neb Soln (Albuterol Sulfate) 1.25 Mg/3 Ml Vial.neb 1.25 Mg IH Q3HRS PRN Spiriva (Tiotropium [place]) 18 Mcg Cap.w.dev 1 Puff IH DAILY Vitals/I & O Vital Sign - Last 24 Hours 03/05/17 03/05/17 03/05/17 03/05/17 15:00 15:13 15:25 16:42 Temp 97.5 97.5 Pulse 99 99 Resp 20 16 B/P (MAP) 171/67 (101) 174/67 Pulse Ox 93 93 O2 Delivery Nasal Cannula Nasal Cannula Nasal Cannula O2 Flow Rate 3.0 3.0 3.0 03/05/17 03/05/17 03/05/17 03/05/17 19:00 19:43 20:00 21:27 Temp 98.4 98.4 Pulse 78 78 Resp 18 B/P (MAP) 155/62 (93) 155/62 Pulse Ox 95 96 O2 Delivery Nasal Cannula Nasal Cannula Nasal Cannula O2 Flow Rate 3.0 3.0 3.0 03/05/17 03/06/17 03/06/17 03/06/17 23:00 03:00 07:00 07:09 Temp 98.5 98.1 97.5 98.5 98.1 97.5 Pulse 78 73 86 Resp 20 18 20 B/P (MAP) 160/64 (96) 152/69 (96) 167/65 (99) Pulse Ox 96 96 97 94 O2 Delivery Nasal Cannula Nasal Cannula Nasal Cannula Nasal Cannula O2 Flow Rate 3.0 3.0 3.0 3.0 03/06/17 03/06/17 03/06/17 03/06/17 07:25 07:26 07:26 08:00 Pulse 73 73 Resp 16 B/P (MAP) 152/69 152/69 Pulse Ox 94 O2 Delivery Nasal Cannula Nasal Cannula O2 Flow Rate 3.0 3.0 03/06/17 03/06/17 03/06/17 08:26 11:00 11:08 Temp 97.7 97.7 Pulse 81 Resp 16 20 B/P (MAP) 154/65 (94) Pulse Ox 94 98 O2 Delivery Nasal Cannula Nasal Cannula Nasal Cannula O2 Flow Rate 3.0 3.0 3.0 Intake and Output 03/05/17 03/05/17 03/06/17 15:00 23:00 07:00 Intake Total 100 ml 350 ml Balance 100 ml 350 ml ANTON LEBRON K III DO March 06, 2017 14:08
[2017-03-06 15:00] VITALS: BP 156/61
[2017-03-06] MEDS: POTASSIUM CHLORIDE 10MEQ 100 ML IV SCH ×4 (15:29→21:54)
[2017-03-06 19:00] VITALS: BP 155/69
[2017-03-06] MEDS: FAMOTIDINE 20 MG TABLET. PO SCH (21:55)
[2017-03-06 23:00] VITALS: BP 151/65
[2017-03-07 03:00] VITALS: BP 179/48
[2017-03-07 05:47] LABS: ALBUMIN 2.7 g/dL (3.4-5.0); CALCIUM 8.4 mg/dL (8.5-10.1); CREATININE 0.7 mg/dL (0.6-1.0); GFR 81.1; POTASSIUM 4.5 mmol/L (3.5-5.1); TOTAL BILIRUBIN 0.4 mg/dL (0.2-1.0); TOTAL PROTEIN 5.3 g/dL (6.4-8.2)
[2017-03-07] MEDS: ALBUTEROL SULFATE 2.5 MG/3 ML NEBU. NEB SCH ×4 (06:54→20:09)
[2017-03-07 07:00] VITALS: BP 179/53
--- NOTE | 2017-03-07 08:29 | PDOC ---
SURGICAL PROGRESS NOTE Subjective Complains of being short of breath and lower back pain. Tolerating regular diet , no nausea or abdominal pain. Vital Signs Vital Signs Date Time Temp Pulse Resp B/P (MAP) Pulse Ox O2 Delivery O2 Flow Rate FiO2 03/07/17 07:00 97.8 84 20 179/53 (95) 94 Nasal Cannula 3.0 97.8 I&O Intake and Output 03/07/17 07:00 Intake Total 200 ml Balance 200 ml Intake Oral 200 ml # Voids 7 # Bowel Movements 2 PATIENT HAS A JOSEPH: No General: Alert, Oriented X3, Cooperative, mild distress Abdomen: Normal bowel sounds, Soft, No tenderness Labs Laboratory Tests Test 03/07/17 04:15 Sodium Level 141 mmol/L (136-145) Potassium Level 4.5 mmol/L (3.5-5.1) Chloride Level 105 mmol/L (98-107) Carbon Dioxide Level 31 mmol/L (21-32) Anion Gap 5 (6-14) Blood Urea Nitrogen 9 mg/dL (7-20) Creatinine 0.7 mg/dL (0.6-1.0) Estimated GFR (Cockcroft-Gault) 81.1 BUN/Creatinine Ratio 13 (6-20) Glucose Level 88 mg/dL (70-99) Calcium Level 8.4 mg/dL (8.5-10.1) Total Bilirubin 0.4 mg/dL (0.2-1.0) Aspartate Amino Transf (AST/SGOT) 17 U/L (15-37) Alanine Aminotransferase (ALT/SGPT) 16 U/L (14-59) Alkaline Phosphatase 80 U/L (46-116) Total Protein 5.3 g/dL (6.4-8.2) Albumin 2.7 g/dL (3.4-5.0) Albumin/Globulin Ratio 1.0 (1.0-1.7) Laboratory Tests Test 03/07/17 04:15 Sodium Level 141 mmol/L (136-145) Potassium Level 4.5 mmol/L (3.5-5.1) Chloride Level 105 mmol/L (98-107) Carbon Dioxide Level 31 mmol/L (21-32) Anion Gap 5 (6-14) Blood Urea Nitrogen 9 mg/dL (7-20) Creatinine 0.7 mg/dL (0.6-1.0) Estimated GFR (Cockcroft-Gault) 81.1 BUN/Creatinine Ratio 13 (6-20) Glucose Level 88 mg/dL (70-99) Calcium Level 8.4 mg/dL (8.5-10.1) Total Bilirubin 0.4 mg/dL (0.2-1.0) Aspartate Amino Transf (AST/SGOT) 17 U/L (15-37) Alanine Aminotransferase (ALT/SGPT) 16 U/L (14-59) Alkaline Phosphatase 80 U/L (46-116) Total Protein 5.3 g/dL (6.4-8.2) Albumin 2.7 g/dL (3.4-5.0) Albumin/Globulin Ratio 1.0 (1.0-1.7) Problem List Problems Medical Problems: (1) Abdominal pain Status: Acute Assessment/Plan Tolerating regular diet and normal LFT's and TBili Asymptomatic cholelithiasis, and poor surgical candidate, No surgical plans Problems: KATHY GOODWIN MD March 07, 2017 08:29
[2017-03-07] MEDS: HYDROcodone/APAP 5/325MG 1 TAB TABLET PO PRN ×2 (08:32→20:27)
[2017-03-07] MEDS: METOPROLOL SUCC 24HR ER 25 MG TAB.ER.24H. PO SCH ×2 (08:33→20:26)
[2017-03-07] MEDS: POLYETHYLENE GLYCOL 3350 17 GM PACKET. PO SCH ×2 (08:33→20:27)
[2017-03-07] MEDS: VERAPAMIL SR 120 MG TABLET.ER. PO SCH (08:33)
[2017-03-07] MEDS: ONDANSETRON PF 4 MG/2 ML VIAL. IV PRN (08:36)
--- NOTE | 2017-03-07 09:53 | PDOC ---
PROGRESS NOTES Chief Complaint Chief Complaint AAA, 4 cm , 6 mm larger than previous Abdominal pain Severe COPD, end stage, O2 dependent Symptomatic cholelithiasis MOD to severe COPD Hypokalemia AOCD is DNR History of Present Illness History of Present Illness Patient was lying in bed in NAD this am still has abdominal pain has gotten up to commode only Vitals Vitals Vital Signs Date Time Temp Pulse Resp B/P (MAP) Pulse Ox O2 Delivery O2 Flow Rate FiO2 03/07/17 09:38 Nasal Cannula 3.0 03/07/17 08:33 84 179/53 03/07/17 07:00 97.8 20 94 97.8 Physical Exam General: Alert, Oriented X3, Cooperative, mild distress Heart: Regular rate, Normal S1, Normal S2, Other (1/6 DANIKA aortic; ? carotid bruit) Lungs: Clear, Other (no wheezing) Abdomen: Normal bowel sounds, Soft, No tenderness Extremities: No clubbing, Normal pulses, Other (mild non-pitting edema b/l hands and wrists) Skin: No rashes, No significant lesion Labs LABS Laboratory Tests Test 03/07/17 04:15 Sodium Level 141 mmol/L (136-145) Potassium Level 4.5 mmol/L (3.5-5.1) Chloride Level 105 mmol/L (98-107) Carbon Dioxide Level 31 mmol/L (21-32) Anion Gap 5 (6-14) Blood Urea Nitrogen 9 mg/dL (7-20) Creatinine 0.7 mg/dL (0.6-1.0) Estimated GFR (Cockcroft-Gault) 81.1 BUN/Creatinine Ratio 13 (6-20) Glucose Level 88 mg/dL (70-99) Calcium Level 8.4 mg/dL (8.5-10.1) Total Bilirubin 0.4 mg/dL (0.2-1.0) Aspartate Amino Transf (AST/SGOT) 17 U/L (15-37) Alanine Aminotransferase (ALT/SGPT) 16 U/L (14-59) Alkaline Phosphatase 80 U/L (46-116) Total Protein 5.3 g/dL (6.4-8.2) Albumin 2.7 g/dL (3.4-5.0) Albumin/Globulin Ratio 1.0 (1.0-1.7) Review of Systems Review of Systems dyspnea abd pain no nausea or vomiting Assessment and Plan Assessmemt and Plan DNR status reviewed Problems Medical Problems: (1) Abdominal pain Status: Acute Problems: Comment Review of Relevant I have reviewed the following items gabby (where applicable) has been applied. Labs Laboratory Tests Test 03/07/17 04:15 Sodium Level 141 mmol/L (136-145) Potassium Level 4.5 mmol/L (3.5-5.1) Chloride Level 105 mmol/L (98-107) Carbon Dioxide Level 31 mmol/L (21-32) Anion Gap 5 (6-14) Blood Urea Nitrogen 9 mg/dL (7-20) Creatinine 0.7 mg/dL (0.6-1.0) Estimated GFR (Cockcroft-Gault) 81.1 BUN/Creatinine Ratio 13 (6-20) Glucose Level 88 mg/dL (70-99) Calcium Level 8.4 mg/dL (8.5-10.1) Total Bilirubin 0.4 mg/dL (0.2-1.0) Aspartate Amino Transf (AST/SGOT) 17 U/L (15-37) Alanine Aminotransferase (ALT/SGPT) 16 U/L (14-59) Alkaline Phosphatase 80 U/L (46-116) Total Protein 5.3 g/dL (6.4-8.2) Albumin 2.7 g/dL (3.4-5.0) Albumin/Globulin Ratio 1.0 (1.0-1.7) Laboratory Tests Test 03/07/17 04:15 Sodium Level 141 mmol/L (136-145) Potassium Level 4.5 mmol/L (3.5-5.1) Chloride Level 105 mmol/L (98-107) Carbon Dioxide Level 31 mmol/L (21-32) Anion Gap 5 (6-14) Blood Urea Nitrogen 9 mg/dL (7-20) Creatinine 0.7 mg/dL (0.6-1.0) Estimated GFR (Cockcroft-Gault) 81.1 BUN/Creatinine Ratio 13 (6-20) Glucose Level 88 mg/dL (70-99) Calcium Level 8.4 mg/dL (8.5-10.1) Total Bilirubin 0.4 mg/dL (0.2-1.0) Aspartate Amino Transf (AST/SGOT) 17 U/L (15-37) Alanine Aminotransferase (ALT/SGPT) 16 U/L (14-59) Alkaline Phosphatase 80 U/L (46-116) Total Protein 5.3 g/dL (6.4-8.2) Albumin 2.7 g/dL (3.4-5.0) Albumin/Globulin Ratio 1.0 (1.0-1.7) Microbiology 03/03/17 Urine Culture - Final, Complete 03/03/17 Urine Culture Result 1 (LISA) - Final, Complete Medications Current Medications Fentanyl Citrate (Fentanyl 2ml Vial) 25 mcg PRN Q15MIN PRN IV PAIN GREATER THAN 3/10 Last administered on 03/03/17 08:49; Start 03/03/17 at 06:15; Stop at 06:14; Status DC Ondansetron HCl (Zofran) 4 mg 1X ONCE IV Last administered on 03/03/17 06:40 ; Start 03/03/17 at 06:30; Stop 03/03/17 at 06:31; Status DC Sodium Chloride 500 ml @ 500 mls/hr 1X ONCE IV Last administered on 06:40; Start 03/03/17 at 06:30; Stop 03/03/17 at 07:29; Status DC Iohexol (Omnipaque 300 Mg/ml) 75 ml 1X ONCE IV Last administered on 03/03/17 07:01; Start 03/03/17 at 07:00; Stop 03/03/17 at 07:01; Status DC Info (Do NOT chart on this entry -- for MONITORING) 1 each PRN DAILY PRN MC SEE COMMENTS; Start 03/03/17 at 06:30; Stop 03/05/17 at 06:29; Status DC Metoprolol Tartrate (Lopressor) 5 mg 1X ONCE IVP Last administered on 08:10; Start 03/03/17 at 08:00; Stop 03/03/17 at 08:01; Status DC Ceftriaxone Sodium 50 ml @ 100 mls/hr 1X ONCE IV Last administered on 10:19; Start 03/03/17 at 10:15; Stop 03/03/17 at 10:44; Status DC Ceftriaxone Sodium 1 gm/ Sodium Chloride 50 ml @ 100 mls/hr Q24H IV Last administered on 03/05/17 10:02; Start 03/04/17 at 11:00; Stop 03/05/17 at 16:31 ; Status DC Diphenhydramine HCl (Benadryl) 25 mg 1X ONCE IVP Last administered on 10:19; Start 03/03/17 at 10:15; Stop 03/03/17 at 10:20; Status DC Ondansetron HCl (Zofran) 4 mg PRN Q8HRS PRN IV NAUSEA/VOMITING Last administered on 03/03/17 12:21; Start 03/03/17 at 10:30; Stop 03/04/17 at 10:29 ; Status DC Fentanyl Citrate (Fentanyl 2ml Vial) 50 mcg PRN Q1HR PRN IV PAIN Last administered on 03/03/17 18:01; Start 03/03/17 at 10:30; Stop 03/04/17 at 10:29 ; Status DC Acetaminophen (Tylenol) 650 mg PRN Q4HRS PRN PO FEVER; Start 03/03/17 at 10:30 ; Stop 03/04/17 at 10:29; Status DC Polyethylene Glycol (miraLAX PACKET) 17 gm DAILY PO Last administered on 08:35; Start 03/03/17 at 15:00; Stop 03/04/17 at 13:51; Status DC Famotidine (Pepcid) 20 mg QHS PO Last administered on 03/06/17 21:55; Start at 21:00 Albuterol/ Ipratropium (Duoneb) 3 ml 1X ONCE NEB Last administered on 18:04; Start 03/03/17 at 18:00; Stop 03/03/17 at 18:01; Status DC Albuterol Sulfate (Ventolin Neb Soln) 2.5 mg RTQID NEB Last administered on 06:54; Start 03/03/17 at 20:00 Albuterol Sulfate (Ventolin Neb Soln) 2.5 mg PRN Q4HRS PRN NEB SHORTNESS OF BREATH; Start 03/03/17 at 19:45 Acetaminophen/ Hydrocodone Bitart (Lortab 5/325) 1 tab Q6HRS PRN PO PAIN Last administered on 03/07/17 08:32; Start 03/03/17 at 19:45 Morphine Sulfate 2 mg PRN Q2HR PRN IV PAIN; Start 03/03/17 at 19:45 Metoprolol Succinate (Toprol Xl) 12.5 mg DAILY PO Last administered on 08:37; Start 03/03/17 at 20:00; Stop 03/04/17 at 13:42; Status DC Labetalol HCl (Normodyne) 10 mg PRN Q2HR PRN IVP HYPERTENSION, SEE COMMENTS Last administered on 03/05/17 15:13; Start 03/03/17 at 19:45 Guaifenesin (Robitussin Dm) 10 ml PRN Q6HRS PRN PO COUGH Last administered on 05:51; Start 03/04/17 at 09:45 Potassium Chloride (Klor-Con) 40 meq 1X ONCE PO Last administered on 10:51; Start 03/04/17 at 10:00; Stop 03/04/17 at 10:01; Status DC Metoprolol Succinate (Toprol Xl) 12.5 mg BID PO Last administered on 03/07/17 08:33; Start 03/04/17 at 21:00 Verapamil HCl (Calan Sr) 120 mg DAILY PO Last administered on 03/07/17 08:33; Start 03/04/17 at 13:45 Polyethylene Glycol (miraLAX PACKET) 17 gm BID PO Last administered on 07:26; Start 03/04/17 at 21:00 Potassium Chloride (Klor-Con) 40 meq 1X ONCE PO Last administered on 14:50; Start 03/05/17 at 13:30; Stop 03/05/17 at 13:31; Status DC Ondansetron HCl (Zofran) 4 mg PRN Q6HRS PRN IV NAUSEA/VOMITING Last administered on 03/07/17 08:36; Start 03/06/17 at 10:45 Potassium Chloride 100 ml @ 100 mls/hr Q1H IV Last administered on 03/06/17 21:54; Start 03/06/17 at 14:30; Stop 03/06/17 at 18:29; Status DC Albumin Human 100 ml @ 100 mls/hr 1X ONCE IV Last administered on 5/28/17at 14:29; Start 03/06/17 at 14:00; Stop 03/06/17 at 14:59; Status DC Albumin Human 100 ml @ 100 mls/hr 1X ONCE IV ; Start 03/07/17 at 14:00; Stop 03/07/17 at 14:59 Albumin Human 100 ml @ 100 mls/hr 1X ONCE IV ; Start 03/08/17 at 14:00; Stop 03/08/17 at 14:59 Active Scripts Active Prednisone 10 Mg Tablet 10 Mg PO UD Take 3 tablets by mouth daily for 3 days, then take 2 tablets by mouth daily for 3 days, then take 1 tablet by mouth daily for 3 days, then resume home dose. Levaquin (Levofloxacin) 750 Mg Tablet 1 Tab PO QODAY Reported Azithromycin Tablet (Azithromycin) 250 Mg Tablet 250 Mg PO DAILY Spironolactone 25 Mg Tablet 1 Tab PO DAILY Atorvastatin Calcium 10 Mg Tablet 1 Tab PO HS NEXT DOSE: 07/15/15 PM Amlodipine Besylate 5 Mg Tablet 5 Mg PO DAILY NEXT DOSE: 07/16/15 AM Prednisolone Acetate 5 Ml Drops.susp 5 Ml OP Furosemide 20 Mg Tablet Unknown Dose PO DAILY NEXT DOSE: 07/16/15 AM Prednisone 5 Mg Tablet 10 Mg PO QODAY NEXT DOSE: START 07/16/15 40MG DAILY X2 DAYS 30MG DAILY X2 DAYS 20MG DAILY X2 DAYS 10MG DAILY X2 DAYS STOP TAKING AFTER LAST PILL Plavix (Clopidogrel Bisulfate) 75 Mg Tablet 75 Mg PO DAILY NEXT DOSE: 07/16/15 AM Aspir 81 (Aspirin) 81 Mg Tablet.dr 81 Mg PO DAILY NEXT DOSE: 07/16/15 AM Metoprolol Tartrate 25 Mg Tablet 12.5 Mg PO DAILY NEXT DOSE: 07/16/15 AM Alprazolam 0.25 Mg Tab.rapdis 0.25 Mg PO PRN NEXT DOSE: 07/15/15 AFTERNOON Daliresp (Roflumilast) 500 Mcg Tablet 250 Mcg PO DAILY NEXT DOSE: 07/16/15 AM Albuterol Sulfate Neb Soln (Albuterol Sulfate) 1.25 Mg/3 Ml Vial.neb 1.25 Mg IH Q3HRS PRN Spiriva (Tiotropium [place]) 18 Mcg Cap.w.dev 1 Puff IH DAILY Vitals/I & O Vital Sign - Last 24 Hours 03/06/17 03/06/17 03/06/17 03/06/17 11:00 11:08 15:00 16:50 Temp 97.7 98.1 97.7 98.1 Pulse 81 86 Resp 20 20 B/P (MAP) 154/65 (94) 156/61 (92) Pulse Ox 98 97 O2 Delivery Nasal Cannula Nasal Cannula Nasal Cannula Nasal Cannula O2 Flow Rate 3.0 3.0 3.0 3.0 03/06/17 03/06/17 03/06/17 03/06/17 19:00 19:10 20:10 21:55 Temp 97.9 97.9 Pulse 96 Resp 20 B/P (MAP) 155/69 (97) Pulse Ox 92 94 94 O2 Delivery Nasal Cannula Nasal Cannula Nasal Cannula Nasal Cannula O2 Flow Rate 3.0 3.0 3.0 3.0 03/06/17 03/06/17 03/07/17 03/07/17 21:55 23:00 03:00 06:55 Temp 98.9 97.3 98.9 97.3 Pulse 96 84 76 Resp 20 18 B/P (MAP) 155/69 151/65 (93) 179/48 (91) Pulse Ox 97 96 96 O2 Delivery Nasal Cannula Nasal Cannula Nasal Cannula O2 Flow Rate 3.0 3.0 3.0 03/07/17 03/07/17 03/07/17 03/07/17 07:00 08:32 08:33 08:33 Temp 97.8 97.8 Pulse 84 84 84 Resp 20 B/P (MAP) 179/53 (95) 179/53 179/53 Pulse Ox 94 O2 Delivery Nasal Cannula Nasal Cannula O2 Flow Rate 3.0 3.0 03/07/17 09:38 O2 Delivery Nasal Cannula O2 Flow Rate 3.0 Intake and Output 03/06/17 03/06/17 03/07/17 14:59 22:59 06:59 Intake Total 200 ml Balance 200 ml SABINA DEL VALLE MD March 07, 2017 09:53
[2017-03-07 11:00] VITALS: BP 148/54
--- NOTE | 2017-03-07 11:23 | PDOC ---
PULMONARY PROGRESS NOTES Subjective PT WITH NO INCREASE SOA CONTINUE PAIN Vitals Vital Signs Date Time Temp Pulse Resp B/P (MAP) Pulse Ox O2 Delivery O2 Flow Rate FiO2 03/07/17 09:38 Nasal Cannula 3.0 03/07/17 08:33 84 179/53 03/07/17 07:00 97.8 20 94 97.8 ROS: No Nausea, No Chest Pain, No Increase Cough General: Alert, Oriented X4, No acute distress Lungs: Clear, Other (no wheezing) Cardiovascular: S1, S2 Abdomen: Soft, Non-tender Neuro Exam: Alert Extremities: No Edema Skin: Warm Labs Laboratory Tests Test 03/07/17 04:15 Sodium Level 141 mmol/L (136-145) Potassium Level 4.5 mmol/L (3.5-5.1) Chloride Level 105 mmol/L (98-107) Carbon Dioxide Level 31 mmol/L (21-32) Anion Gap 5 (6-14) Blood Urea Nitrogen 9 mg/dL (7-20) Creatinine 0.7 mg/dL (0.6-1.0) Estimated GFR (Cockcroft-Gault) 81.1 BUN/Creatinine Ratio 13 (6-20) Glucose Level 88 mg/dL (70-99) Calcium Level 8.4 mg/dL (8.5-10.1) Total Bilirubin 0.4 mg/dL (0.2-1.0) Aspartate Amino Transf (AST/SGOT) 17 U/L (15-37) Alanine Aminotransferase (ALT/SGPT) 16 U/L (14-59) Alkaline Phosphatase 80 U/L (46-116) Total Protein 5.3 g/dL (6.4-8.2) Albumin 2.7 g/dL (3.4-5.0) Albumin/Globulin Ratio 1.0 (1.0-1.7) Laboratory Tests Test 03/07/17 04:15 Sodium Level 141 mmol/L (136-145) Potassium Level 4.5 mmol/L (3.5-5.1) Chloride Level 105 mmol/L (98-107) Carbon Dioxide Level 31 mmol/L (21-32) Anion Gap 5 (6-14) Blood Urea Nitrogen 9 mg/dL (7-20) Creatinine 0.7 mg/dL (0.6-1.0) Estimated GFR (Cockcroft-Gault) 81.1 BUN/Creatinine Ratio 13 (6-20) Glucose Level 88 mg/dL (70-99) Calcium Level 8.4 mg/dL (8.5-10.1) Total Bilirubin 0.4 mg/dL (0.2-1.0) Aspartate Amino Transf (AST/SGOT) 17 U/L (15-37) Alanine Aminotransferase (ALT/SGPT) 16 U/L (14-59) Alkaline Phosphatase 80 U/L (46-116) Total Protein 5.3 g/dL (6.4-8.2) Albumin 2.7 g/dL (3.4-5.0) Albumin/Globulin Ratio 1.0 (1.0-1.7) Medications Active Scripts Medications Dose Route/Sig Max Daily Dose Days Date Category Dose Instructions Prednisone 10 Mg Tablet 10 Mg PO UD 06/17/16 Rx Take 3 tablets by mouth daily for 3 days, then take 2 tablets by mouth daily for 3 days, then take 1 tablet by mouth daily for 3 days, then resume home dose. Levaquin (Levofloxacin) 750 Mg Tablet 1 Tab PO QODAY 06/17/16 Rx Azithromycin Tablet (Azithromycin) 250 Mg Tablet 250 Mg PO DAILY 06/12/16 Reported Spironolactone 25 Mg Tablet 1 Tab PO DAILY 06/12/16 Reported Atorvastatin Calcium 10 Mg Tablet 1 Tab PO HS 07/15/15 Reported NEXT DOSE: 07/15/15 PM Amlodipine Besylate 5 Mg Tablet 5 Mg PO DAILY 07/15/15 Reported NEXT DOSE: 07/16/15 AM Prednisolone Acetate 5 Ml Drops.susp 5 Ml OP 07/10/15 Reported Furosemide 20 Mg Tablet Unknown Dose PO DAILY 01/05/15 Reported NEXT DOSE: 07/16/15 AM Prednisone 5 Mg Tablet 10 Mg PO QODAY 03/06/14 Reported NEXT DOSE: START 07/16/15 40MG DAILY X2 DAYS 30MG DAILY X2 DAYS 20MG DAILY X2 DAYS 10MG DAILY X2 DAYS STOP TAKING AFTER LAST PILL Plavix (Clopidogrel Bisulfate) 75 Mg Tablet 75 Mg PO DAILY 02/28/14 Reported NEXT DOSE: 07/16/15 AM Aspir 81 (Aspirin) 81 Mg Tablet.dr 81 Mg PO DAILY 02/28/14 Reported NEXT DOSE: 07/16/15 AM Metoprolol Tartrate 25 Mg Tablet 12.5 Mg PO DAILY 02/28/14 Reported NEXT DOSE: 07/16/15 AM Alprazolam 0.25 Mg Tab.rapdis 0.25 Mg PO PRN 02/25/14 Reported NEXT DOSE: 07/15/15 AFTERNOON Daliresp (Roflumilast) 500 Mcg Tablet 250 Mcg PO DAILY 02/25/14 Reported NEXT DOSE: 07/16/15 AM Albuterol Sulfate Neb Soln (Albuterol Sulfate) 1.25 Mg/3 Ml Vial.neb 1.25 Mg IH Q3HRS PRN 02/25/14 Reported Spiriva (Tiotropium [place]) 18 Mcg Cap.w.dev 1 Puff IH DAILY 02/25/14 Reported Impression . 1. Chronic respiratory failure. 2. Cholelithiasis, requiring possible surgical intervention. 3. Abdominal aortic aneurysm seen by Vascular Surgery, not a surgical candidate. 4. Right upper quadrant pain ? secondary to cholelithiasis. 5. Tobacco dependence. 6. Chronic anemia. Plan . AGREE WITH SURGEON PT AT HIGH RISK FOR INTERVENTION RESP STATUS IS COMPENSATED WILL CONTINUE THE SAME SURGEON NOTE APPRECIATED EDGARD MOREL MD March 07, 2017 11:23
[2017-03-07] MEDS ORDERED: ALBUMIN HUMAN 25% 100 ML IV ONE (14:00)
[2017-03-07 15:00] VITALS: BP 161/55
[2017-03-07 19:32] VITALS: BP 174/52
[2017-03-07] MEDS: FAMOTIDINE 20 MG TABLET. PO SCH (20:27)
[2017-03-07 23:30] VITALS: BP 162/43
[2017-03-08] VITALS (10 sets, daily range): BP systolic 120–194; BP diastolic 35–61
[2017-03-08] MEDS: LABETALOL 20 MG/4 ML DISP.SYRIN. IVP PRN ×2 (03:17→20:15)
[2017-03-08] MEDS: ALBUTEROL SULFATE 2.5 MG/3 ML NEBU. NEB SCH ×4 (03:46→15:07)
[2017-03-08] MEDS: HYDROcodone/APAP 5/325MG 1 TAB TABLET PO PRN (05:39)
[2017-03-08] MEDS: ONDANSETRON PF 4 MG/2 ML VIAL. IV PRN (06:21)
--- NOTE | 2017-03-08 08:37 | PDOC ---
PULMONARY PROGRESS NOTES Subjective Had increase BP last night/ became dizzy better today Vitals Vital Signs Date Time Temp Pulse Resp B/P (MAP) Pulse Ox O2 Delivery O2 Flow Rate FiO2 03/08/17 07:40 Nasal Cannula 3.0 03/08/17 07:06 98 03/08/17 07:00 97.8 69 20 143/35 (71) 97.8 ROS: No Nausea, No Chest Pain, No Increase Cough General: Alert, Oriented X4, No acute distress Lungs: Other (no wheezing) Cardiovascular: S1, S2 Abdomen: Soft, Non-tender Neuro Exam: Alert Extremities: No Edema Skin: Warm Labs Laboratory Tests Test 03/07/17 04:15 Sodium Level 141 mmol/L (136-145) Potassium Level 4.5 mmol/L (3.5-5.1) Chloride Level 105 mmol/L (98-107) Carbon Dioxide Level 31 mmol/L (21-32) Anion Gap 5 (6-14) Blood Urea Nitrogen 9 mg/dL (7-20) Creatinine 0.7 mg/dL (0.6-1.0) Estimated GFR (Cockcroft-Gault) 81.1 BUN/Creatinine Ratio 13 (6-20) Glucose Level 88 mg/dL (70-99) Calcium Level 8.4 mg/dL (8.5-10.1) Total Bilirubin 0.4 mg/dL (0.2-1.0) Aspartate Amino Transf (AST/SGOT) 17 U/L (15-37) Alanine Aminotransferase (ALT/SGPT) 16 U/L (14-59) Alkaline Phosphatase 80 U/L (46-116) Total Protein 5.3 g/dL (6.4-8.2) Albumin 2.7 g/dL (3.4-5.0) Albumin/Globulin Ratio 1.0 (1.0-1.7) Medications Active Scripts Medications Dose Route/Sig Max Daily Dose Days Date Category Dose Instructions Prednisone 10 Mg Tablet 10 Mg PO UD 06/17/16 Rx Take 3 tablets by mouth daily for 3 days, then take 2 tablets by mouth daily for 3 days, then take 1 tablet by mouth daily for 3 days, then resume home dose. Levaquin (Levofloxacin) 750 Mg Tablet 1 Tab PO QODAY 06/17/16 Rx Azithromycin Tablet (Azithromycin) 250 Mg Tablet 250 Mg PO DAILY 06/12/16 Reported Spironolactone 25 Mg Tablet 1 Tab PO DAILY 06/12/16 Reported Atorvastatin Calcium 10 Mg Tablet 1 Tab PO HS 07/15/15 Reported NEXT DOSE: 07/15/15 PM Amlodipine Besylate 5 Mg Tablet 5 Mg PO DAILY 07/15/15 Reported NEXT DOSE: 07/16/15 AM Prednisolone Acetate 5 Ml Drops.susp 5 Ml OP 07/10/15 Reported Furosemide 20 Mg Tablet Unknown Dose PO DAILY 01/05/15 Reported NEXT DOSE: 07/16/15 AM Prednisone 5 Mg Tablet 10 Mg PO QODAY 03/06/14 Reported NEXT DOSE: START 07/16/15 40MG DAILY X2 DAYS 30MG DAILY X2 DAYS 20MG DAILY X2 DAYS 10MG DAILY X2 DAYS STOP TAKING AFTER LAST PILL Plavix (Clopidogrel Bisulfate) 75 Mg Tablet 75 Mg PO DAILY 02/28/14 Reported NEXT DOSE: 07/16/15 AM Aspir 81 (Aspirin) 81 Mg Tablet.dr 81 Mg PO DAILY 02/28/14 Reported NEXT DOSE: 07/16/15 AM Metoprolol Tartrate 25 Mg Tablet 12.5 Mg PO DAILY 02/28/14 Reported NEXT DOSE: 07/16/15 AM Alprazolam 0.25 Mg Tab.rapdis 0.25 Mg PO PRN 02/25/14 Reported NEXT DOSE: 07/15/15 AFTERNOON Daliresp (Roflumilast) 500 Mcg Tablet 250 Mcg PO DAILY 02/25/14 Reported NEXT DOSE: 07/16/15 AM Albuterol Sulfate Neb Soln (Albuterol Sulfate) 1.25 Mg/3 Ml Vial.neb 1.25 Mg IH Q3HRS PRN 02/25/14 Reported Spiriva (Tiotropium [place]) 18 Mcg Cap.w.dev 1 Puff IH DAILY 02/25/14 Reported Impression . 1. Chronic respiratory failure. 2. Cholelithiasis, 3. Abdominal aortic aneurysm seen by Vascular Surgery, not a surgical candidate. 4. Right upper quadrant pain ? secondary to cholelithiasis. 5. Tobacco dependence. 6. Chronic anemia. Plan . AGREE WITH SURGEON PT AT HIGH RISK FOR INTERVENTION RESP STATUS IS COMPENSATED WILL CONTINUE THE SAME SURGEON NOTE APPRECIATED ON HOME OXYGEN 3 LITRES KIMMY ANDERSON MD March 08, 2017 08:37
[2017-03-08] MEDS: VERAPAMIL SR 120 MG TABLET.ER. PO SCH (08:41)
[2017-03-08] MEDS: POLYETHYLENE GLYCOL 3350 17 GM PACKET. PO SCH ×2 (08:41→20:15)
[2017-03-08] MEDS: METOPROLOL SUCC 24HR ER 25 MG TAB.ER.24H. PO SCH ×2 (08:41→20:15)
--- NOTE | 2017-03-08 08:57 | CONS ---
DATE OF CONSULTATION: 03/03/2017 CLINICAL HISTORY: This is a 76-year-old female who was admitted with abdominal and back pain, which she has had for several days. Prior to that, she has had it on and off. She states it radiates some to the back. She states she had a 7-pound bowel movement few days ago and this relieved her discomfort. Currently, she is not in any significant distress. She is mildly tachypneic, on oxygen. PAST MEDICAL HISTORY: Significant for tobaccoism, COPD, history of TIA, history of hypertension, myocardial infarction with coronary stents. ALLERGIES: INCLUDE SULFA, CLARITHROMYCIN, AND LEVAQUIN WELL CEPHALEXIN. FAMILY HISTORY: Significant for coronary artery disease. SOCIAL HISTORY: She smokes cigarettes, despite wearing oxygen at home. MEDICATIONS: Reviewed. REVIEW OF SYSTEMS: The patient is short of breath most of the time; she requires home oxygen. Otherwise, her 12-point review of systems is unremarkable. PHYSICAL EXAMINATION: GENERAL: The patient is a bit gnarled up, but comfortable in bed. She is tachypneic with some mild labored respirations. NECK: Supple. CHEST: Clear. ABDOMEN: Soft and there is some mild tenderness over direct palpation of the abdomen. EXTREMITIES: She has palpable femoral, popliteal, and pedal pulses. LABORATORY DATA: Hemoglobin is 10. White blood cell count is 10. Radiology tests have been done, which includes an abdominal ultrasound and CT scan with contrast. This reveals a 4 cm non-ruptured aneurysm, which commences just below the level of the renal arteries. There is severe calcification. IMPRESSION: 1. Abdominal and back pain of unclear etiology. 2. A 4 cm abdominal aortic aneurysm, non-ruptured. 3. History of severe chronic obstructive pulmonary disease and a history of tobaccoism, which she continues to smoke. She requires home oxygen. 4. History of atherosclerotic cerebrovascular disease. 5. History of atherosclerotic heart disease. RECOMMENDATION: The patient is not a candidate for abdominal aortic aneurysm repair, in my opinion. She would require an open repair and do not think she would survive that due to her marginal respiratory reserve. She is not inclined to have anything like that done any way. I recommend GI consult for possible relief of her 5-day constipation and comfort measures. Again, she is not a candidate for open aneurysm repair. Thank you for allowing me to evaluate her. BRANDY COHW MD DR: Vanda JOB#: [id number] / [id number]
--- NOTE | 2017-03-08 09:26 | PDOC ---
SABA DOS SANTOS APRN 03/08/17 0948: SURGICAL PROGRESS NOTE Subjective had abdominal pain last night, nausea improved now, tolerating breakfast Vital Signs Vital Signs Date Time Temp Pulse Resp B/P (MAP) Pulse Ox O2 Delivery O2 Flow Rate FiO2 03/08/17 08:41 69 143/35 03/08/17 07:40 Nasal Cannula 3.0 03/08/17 07:06 98 03/08/17 07:00 97.8 20 97.8 I&O Intake and Output 03/08/17 06:59 Intake Total 100 ml Output Total 350 ml Balance -250 ml IV Total 100 ml Output Urine Total 350 ml # Voids 3 General: Alert, Oriented X3, Cooperative, No acute distress Abdomen: Soft, No tenderness Labs Laboratory Tests Test 03/07/17 04:15 Sodium Level 141 mmol/L (136-145) Potassium Level 4.5 mmol/L (3.5-5.1) Chloride Level 105 mmol/L (98-107) Carbon Dioxide Level 31 mmol/L (21-32) Anion Gap 5 (6-14) Blood Urea Nitrogen 9 mg/dL (7-20) Creatinine 0.7 mg/dL (0.6-1.0) Estimated GFR (Cockcroft-Gault) 81.1 BUN/Creatinine Ratio 13 (6-20) Glucose Level 88 mg/dL (70-99) Calcium Level 8.4 mg/dL (8.5-10.1) Total Bilirubin 0.4 mg/dL (0.2-1.0) Aspartate Amino Transf (AST/SGOT) 17 U/L (15-37) Alanine Aminotransferase (ALT/SGPT) 16 U/L (14-59) Alkaline Phosphatase 80 U/L (46-116) Total Protein 5.3 g/dL (6.4-8.2) Albumin 2.7 g/dL (3.4-5.0) Albumin/Globulin Ratio 1.0 (1.0-1.7) Problem List Problems Medical Problems: (1) Abdominal pain Status: Acute Assessment/Plan cholelithiasis, one episode of pain last night now tolerating diet no surgical plans at this time, will have Dr Goodwin review Problems: KATHY GOODWIN MD 03/08/17 1004: SURGICAL PROGRESS NOTE Assessment/Plan Tolerating diet, no surgical plans. Problems: SABA DOS SANTOS APRN March 08, 2017 09:26 KATHY GOODWIN MD March 08, 2017 10:04
--- NOTE | 2017-03-08 11:15 | PDOC ---
Subjective: Subjective: No pain currently, feels a little out of sorts. Stooled yesterday. Objective: Objective: D/w RN - some dizziness and nausea w/ increased SOA when up to use restroom. Eating some. Vital Signs: Vital Signs Date Time Temp Pulse Resp B/P (MAP) Pulse Ox O2 Delivery O2 Flow Rate FiO2 03/08/17 10:57 98 Nasal Cannula 3.0 03/08/17 08:41 69 143/35 03/08/17 07:00 97.8 20 97.8 PE: GEN: NAD LUNGS: decreased, nasal cannula HEART: RRR ABD: mild RUQ discomfort NEURO/PSYCH: A & O 3 A/P: Chronic resp failure, HTN -per pulm, cardio Abd pain, AAA, cholelithiasis -evaluated by vasc and gen surg, no surgical plans Constipation, controlled on Miralax Anemia - stable -last colonoscopy 2013 -- Continue same per GI. FLORINA SCHUMACHER March 08, 2017 11:15
--- NOTE | 2017-03-08 12:29 | PDOC ---
PROGRESS NOTES Chief Complaint Chief Complaint AAA, 4 cm , Abdominal pain Severe COPD, end stage, O2 dependent Symptomatic cholelithiasis MOD to severe COPD Hypokalemia is DNR History of Present Illness History of Present Illness she feels better, but feels too weak to go home, lives in [facility] with her , would benefit from SNU, placement pending, working with PT and OT still has abdominal pain has gotten up to commode only Vitals Vitals Vital Signs Date Time Temp Pulse Resp B/P (MAP) Pulse Ox O2 Delivery O2 Flow Rate FiO2 03/08/17 11:00 97.8 83 20 135/45 (75) 94 Room Air 97.8 03/08/17 10:57 3.0 Physical Exam General: Alert, Oriented X3, Cooperative, No acute distress Heart: Regular rate, Normal S1, Normal S2, No murmurs, Other (1/6 DANIKA aortic; ? carotid bruit) Lungs: Other (no wheezing) Abdomen: Soft, No tenderness Extremities: No clubbing, Normal pulses, Other (mild non-pitting edema b/l hands and wrists) Skin: No rashes, No significant lesion Review of Systems Review of Systems no n.v.d Assessment and Plan Assessmemt and Plan Problems Medical Problems: (1) Abdominal pain Status: Acute Problems: Comment Review of Relevant I have reviewed the following items gabby (where applicable) has been applied. Labs Laboratory Tests Test 03/07/17 04:15 Sodium Level 141 mmol/L (136-145) Potassium Level 4.5 mmol/L (3.5-5.1) Chloride Level 105 mmol/L (98-107) Carbon Dioxide Level 31 mmol/L (21-32) Anion Gap 5 (6-14) Blood Urea Nitrogen 9 mg/dL (7-20) Creatinine 0.7 mg/dL (0.6-1.0) Estimated GFR (Cockcroft-Gault) 81.1 BUN/Creatinine Ratio 13 (6-20) Glucose Level 88 mg/dL (70-99) Calcium Level 8.4 mg/dL (8.5-10.1) Total Bilirubin 0.4 mg/dL (0.2-1.0) Aspartate Amino Transf (AST/SGOT) 17 U/L (15-37) Alanine Aminotransferase (ALT/SGPT) 16 U/L (14-59) Alkaline Phosphatase 80 U/L (46-116) Total Protein 5.3 g/dL (6.4-8.2) Albumin 2.7 g/dL (3.4-5.0) Albumin/Globulin Ratio 1.0 (1.0-1.7) Microbiology 03/03/17 Urine Culture - Final, Complete 03/03/17 Urine Culture Result 1 (LISA) - Final, Complete Medications Current Medications Fentanyl Citrate (Fentanyl 2ml Vial) 25 mcg PRN Q15MIN PRN IV PAIN GREATER THAN 3/10 Last administered on 03/03/17 08:49; Start 03/03/17 at 06:15; Stop at 06:14; Status DC Ondansetron HCl (Zofran) 4 mg 1X ONCE IV Last administered on 03/03/17 06:40 ; Start 03/03/17 at 06:30; Stop 03/03/17 at 06:31; Status DC Sodium Chloride 500 ml @ 500 mls/hr 1X ONCE IV Last administered on 06:40; Start 03/03/17 at 06:30; Stop 03/03/17 at 07:29; Status DC Iohexol (Omnipaque 300 Mg/ml) 75 ml 1X ONCE IV Last administered on 03/03/17 07:01; Start 03/03/17 at 07:00; Stop 03/03/17 at 07:01; Status DC Info (Do NOT chart on this entry -- for MONITORING) 1 each PRN DAILY PRN MC SEE COMMENTS; Start 03/03/17 at 06:30; Stop 03/05/17 at 06:29; Status DC Metoprolol Tartrate (Lopressor) 5 mg 1X ONCE IVP Last administered on 08:10; Start 03/03/17 at 08:00; Stop 03/03/17 at 08:01; Status DC Ceftriaxone Sodium 50 ml @ 100 mls/hr 1X ONCE IV Last administered on 10:19; Start 03/03/17 at 10:15; Stop 03/03/17 at 10:44; Status DC Ceftriaxone Sodium 1 gm/ Sodium Chloride 50 ml @ 100 mls/hr Q24H IV Last administered on 03/05/17 10:02; Start 03/04/17 at 11:00; Stop 03/05/17 at 16:31 ; Status DC Diphenhydramine HCl (Benadryl) 25 mg 1X ONCE IVP Last administered on 10:19; Start 03/03/17 at 10:15; Stop 03/03/17 at 10:20; Status DC Ondansetron HCl (Zofran) 4 mg PRN Q8HRS PRN IV NAUSEA/VOMITING Last administered on 03/03/17 12:21; Start 03/03/17 at 10:30; Stop 03/04/17 at 10:29 ; Status DC Fentanyl Citrate (Fentanyl 2ml Vial) 50 mcg PRN Q1HR PRN IV PAIN Last administered on 03/03/17 18:01; Start 03/03/17 at 10:30; Stop 03/04/17 at 10:29 ; Status DC Acetaminophen (Tylenol) 650 mg PRN Q4HRS PRN PO FEVER; Start 03/03/17 at 10:30 ; Stop 03/04/17 at 10:29; Status DC Polyethylene Glycol (miraLAX PACKET) 17 gm DAILY PO Last administered on 08:35; Start 03/03/17 at 15:00; Stop 03/04/17 at 13:51; Status DC Famotidine (Pepcid) 20 mg QHS PO Last administered on 03/07/17 20:27; Start at 21:00 Albuterol/ Ipratropium (Duoneb) 3 ml 1X ONCE NEB Last administered on 18:04; Start 03/03/17 at 18:00; Stop 03/03/17 at 18:01; Status DC Albuterol Sulfate (Ventolin Neb Soln) 2.5 mg RTQID NEB Last administered on 10:56; Start 03/03/17 at 20:00 Albuterol Sulfate (Ventolin Neb Soln) 2.5 mg PRN Q4HRS PRN NEB SHORTNESS OF BREATH; Start 03/03/17 at 19:45 Acetaminophen/ Hydrocodone Bitart (Lortab 5/325) 1 tab Q6HRS PRN PO PAIN Last administered on 03/08/17 05:39; Start 03/03/17 at 19:45 Morphine Sulfate 2 mg PRN Q2HR PRN IV PAIN; Start 03/03/17 at 19:45 Metoprolol Succinate (Toprol Xl) 12.5 mg DAILY PO Last administered on 08:37; Start 03/03/17 at 20:00; Stop 03/04/17 at 13:42; Status DC Labetalol HCl (Normodyne) 10 mg PRN Q2HR PRN IVP HYPERTENSION, SEE COMMENTS Last administered on 03/08/17 03:17; Start 03/03/17 at 19:45 Guaifenesin (Robitussin Dm) 10 ml PRN Q6HRS PRN PO COUGH Last administered on 05:51; Start 03/04/17 at 09:45 Potassium Chloride (Klor-Con) 40 meq 1X ONCE PO Last administered on 10:51; Start 03/04/17 at 10:00; Stop 03/04/17 at 10:01; Status DC Metoprolol Succinate (Toprol Xl) 12.5 mg BID PO Last administered on 03/08/17 08:41; Start 03/04/17 at 21:00 Verapamil HCl (Calan Sr) 120 mg DAILY PO Last administered on 03/08/17 08:41; Start 03/04/17 at 13:45 Polyethylene Glycol (miraLAX PACKET) 17 gm BID PO Last administered on 07:26; Start 03/04/17 at 21:00 Potassium Chloride (Klor-Con) 40 meq 1X ONCE PO Last administered on 14:50; Start 03/05/17 at 13:30; Stop 03/05/17 at 13:31; Status DC Ondansetron HCl (Zofran) 4 mg PRN Q6HRS PRN IV NAUSEA/VOMITING Last administered on 03/08/17 06:21; Start 03/06/17 at 10:45 Potassium Chloride 100 ml @ 100 mls/hr Q1H IV Last administered on 03/06/17 21:54; Start 03/06/17 at 14:30; Stop 03/06/17 at 18:29; Status DC Albumin Human 100 ml @ 100 mls/hr 1X ONCE IV Last administered on 03/06/17 14:29; Start 03/06/17 at 14:00; Stop 03/06/17 at 14:59; Status DC Albumin Human 100 ml @ 100 mls/hr 1X ONCE IV Last administered on 03/07/17t 13:38; Start 03/07/17 at 14:00; Stop 03/07/17 at 14:59; Status DC Albumin Human 100 ml @ 100 mls/hr 1X ONCE IV ; Start 03/08/17 at 14:00; Stop 03/08/17 at 14:59 Active Scripts Active Prednisone 10 Mg Tablet 10 Mg PO UD Take 3 tablets by mouth daily for 3 days, then take 2 tablets by mouth daily for 3 days, then take 1 tablet by mouth daily for 3 days, then resume home dose. Levaquin (Levofloxacin) 750 Mg Tablet 1 Tab PO QODAY Reported Azithromycin Tablet (Azithromycin) 250 Mg Tablet 250 Mg PO DAILY Spironolactone 25 Mg Tablet 1 Tab PO DAILY Atorvastatin Calcium 10 Mg Tablet 1 Tab PO HS NEXT DOSE: 07/15/15 PM Amlodipine Besylate 5 Mg Tablet 5 Mg PO DAILY NEXT DOSE: 07/16/15 AM Prednisolone Acetate 5 Ml Drops.susp 5 Ml OP Furosemide 20 Mg Tablet Unknown Dose PO DAILY NEXT DOSE: 07/16/15 AM Prednisone 5 Mg Tablet 10 Mg PO QODAY NEXT DOSE: START 07/16/15 40MG DAILY X2 DAYS 30MG DAILY X2 DAYS 20MG DAILY X2 DAYS 10MG DAILY X2 DAYS STOP TAKING AFTER LAST PILL Plavix (Clopidogrel Bisulfate) 75 Mg Tablet 75 Mg PO DAILY NEXT DOSE: 07/16/15 AM Aspir 81 (Aspirin) 81 Mg Tablet.dr 81 Mg PO DAILY NEXT DOSE: 07/16/15 AM Metoprolol Tartrate 25 Mg Tablet 12.5 Mg PO DAILY NEXT DOSE: 07/16/15 AM Alprazolam 0.25 Mg Tab.rapdis 0.25 Mg PO PRN NEXT DOSE: 07/15/15 AFTERNOON Daliresp (Roflumilast) 500 Mcg Tablet 250 Mcg PO DAILY NEXT DOSE: 07/16/15 AM Albuterol Sulfate Neb Soln (Albuterol Sulfate) 1.25 Mg/3 Ml Vial.neb 1.25 Mg IH Q3HRS PRN Spiriva (Tiotropium [place]) 18 Mcg Cap.w.dev 1 Puff IH DAILY Vitals/I & O Vital Sign - Last 24 Hours 03/07/17 03/07/17 03/07/17 03/07/17 15:00 16:03 19:32 20:10 Temp 98.2 97.7 98.2 97.7 Pulse 77 81 Resp 20 18 B/P (MAP) 161/55 (90) 174/52 (92) Pulse Ox 95 95 95 O2 Delivery Nasal Cannula Nasal Cannula Room Air Nasal Cannula O2 Flow Rate 3.0 3.0 3.0 03/07/17 03/07/17 03/07/17 03/07/17 20:26 20:27 20:30 21:30 Pulse 81 B/P (MAP) 174/52 Pulse Ox 95 97 O2 Delivery Nasal Cannula Nasal Cannula O2 Flow Rate 3.0 3.0 03/07/17 03/08/17 03/08/17 03/08/17 23:30 00:33 03:10 03:17 Temp 98.0 98.0 Pulse 71 82 80 Resp 18 23 B/P (MAP) 162/43 (82) 193/58 (103) 194/54 Pulse Ox 97 98 O2 Delivery Nasal Cannula Nasal Cannula O2 Flow Rate 3.0 3.0 03/08/17 03/08/17 03/08/17 03/08/17 03:20 03:26 03:40 04:13 Pulse 80 69 67 Resp 17 B/P (MAP) 194/54 (100) 160/43 (82) 159/41 (80) Pulse Ox 97 O2 Delivery Nasal Cannula Nasal Cannula O2 Flow Rate 3.0 3.0 03/08/17 03/08/17 03/08/17 03/08/17 05:39 07:00 07:00 07:06 Temp 97.8 97.8 Pulse 69 Resp 18 20 B/P (MAP) 143/35 (71) Pulse Ox 97 97 98 O2 Delivery Nasal Cannula Nasal Cannula Nasal Cannula Nasal Cannula O2 Flow Rate 3.0 3.0 3.0 3.0 03/08/17 03/08/17 03/08/17 03/08/17 07:40 08:41 08:41 10:57 Pulse 69 69 B/P (MAP) 143/35 143/35 Pulse Ox 98 O2 Delivery Nasal Cannula Nasal Cannula O2 Flow Rate 3.0 3.0 03/08/17 11:00 Temp 97.8 97.8 Pulse 83 Resp 20 B/P (MAP) 135/45 (75) Pulse Ox 94 O2 Delivery Room Air Intake and Output 03/07/17 03/07/17 03/08/17 15:00 23:00 07:00 Intake Total 100 ml Output Total 350 ml Balance 100 ml -350 ml SABINA DEL VALLE MD March 08, 2017 12:29
[2017-03-08] MEDS ORDERED: ALBUMIN HUMAN 25% 100 ML IV ONE (14:00)
[2017-03-08] MEDS: FAMOTIDINE 20 MG TABLET. PO SCH (20:15)
[2017-03-09 03:22] VITALS: BP 175/40
[2017-03-09 07:00] VITALS: BP 183/50
[2017-03-09] MEDS: ALBUTEROL SULFATE 2.5 MG/3 ML NEBU. NEB SCH ×4 (07:58→19:44)
[2017-03-09] MEDS: VERAPAMIL SR 120 MG TABLET.ER. PO SCH (08:49)
[2017-03-09] MEDS: POLYETHYLENE GLYCOL 3350 17 GM PACKET. PO SCH ×2 (08:50→20:36)
[2017-03-09] MEDS: METOPROLOL SUCC 24HR ER 25 MG TAB.ER.24H. PO SCH ×2 (08:50→20:36)
--- NOTE | 2017-03-09 09:04 | PDOC ---
PULMONARY PROGRESS NOTES Subjective better today Vitals Vital Signs Date Time Temp Pulse Resp B/P (MAP) Pulse Ox O2 Delivery O2 Flow Rate FiO2 03/09/17 08:50 83 183/50 03/09/17 07:30 97 Nasal Cannula 3.0 03/09/17 07:00 97.8 20 97.8 ROS: No Nausea, No Chest Pain, No Increase Cough General: Alert, Oriented X4, No acute distress Lungs: Other (no wheezing) Cardiovascular: S1, S2 Abdomen: Soft, Non-tender Neuro Exam: Alert Extremities: No Edema Skin: Warm Medications Active Scripts Medications Dose Route/Sig Max Daily Dose Days Date Category Dose Instructions Prednisone 10 Mg Tablet 10 Mg PO UD 06/17/16 Rx Take 3 tablets by mouth daily for 3 days, then take 2 tablets by mouth daily for 3 days, then take 1 tablet by mouth daily for 3 days, then resume home dose. Levaquin (Levofloxacin) 750 Mg Tablet 1 Tab PO QODAY 06/17/16 Rx Azithromycin Tablet (Azithromycin) 250 Mg Tablet 250 Mg PO DAILY 06/12/16 Reported Spironolactone 25 Mg Tablet 1 Tab PO DAILY 06/12/16 Reported Atorvastatin Calcium 10 Mg Tablet 1 Tab PO HS 07/15/15 Reported NEXT DOSE: 07/15/15 PM Amlodipine Besylate 5 Mg Tablet 5 Mg PO DAILY 07/15/15 Reported NEXT DOSE: 07/16/15 AM Prednisolone Acetate 5 Ml Drops.susp 5 Ml OP 07/10/15 Reported Furosemide 20 Mg Tablet Unknown Dose PO DAILY 01/05/15 Reported NEXT DOSE: 07/16/15 AM Prednisone 5 Mg Tablet 10 Mg PO QODAY 03/06/14 Reported NEXT DOSE: START 07/16/15 40MG DAILY X2 DAYS 30MG DAILY X2 DAYS 20MG DAILY X2 DAYS 10MG DAILY X2 DAYS STOP TAKING AFTER LAST PILL Plavix (Clopidogrel Bisulfate) 75 Mg Tablet 75 Mg PO DAILY 02/28/14 Reported NEXT DOSE: 07/16/15 AM Aspir 81 (Aspirin) 81 Mg Tablet.dr 81 Mg PO DAILY 02/28/14 Reported NEXT DOSE: 07/16/15 AM Metoprolol Tartrate 25 Mg Tablet 12.5 Mg PO DAILY 02/28/14 Reported NEXT DOSE: 07/16/15 AM Alprazolam 0.25 Mg Tab.rapdis 0.25 Mg PO PRN 02/25/14 Reported NEXT DOSE: 07/15/15 AFTERNOON Daliresp (Roflumilast) 500 Mcg Tablet 250 Mcg PO DAILY 02/25/14 Reported NEXT DOSE: 07/16/15 AM Albuterol Sulfate Neb Soln (Albuterol Sulfate) 1.25 Mg/3 Ml Vial.neb 1.25 Mg IH Q3HRS PRN 02/25/14 Reported Spiriva (Tiotropium [place]) 18 Mcg Cap.w.dev 1 Puff IH DAILY 02/25/14 Reported Impression . 1. Chronic respiratory failure. 2. Cholelithiasis, 3. Abdominal aortic aneurysm seen by Vascular Surgery, not a surgical candidate. 4. Right upper quadrant pain ? secondary to cholelithiasis. 5. Tobacco dependence. 6. Chronic anemia. Plan . AGREE WITH SURGEON PT AT HIGH RISK FOR INTERVENTION RESP STATUS IS COMPENSATED WILL CONTINUE THE SAME ON HOME OXYGEN 3 LITRES AWAITING PLANS FOR SKILL KIMMY ANDERSON MD March 09, 2017 09:04
[2017-03-09 11:00] VITALS: BP 166/48
[2017-03-09] MEDS ORDERED: cloNIDine HCL 0.1 MG TABLET PO PRN (11:45)
[2017-03-09] MEDS ORDERED: METO25TA4 PO (11:47)
--- NOTE | 2017-03-09 11:52 | PDOC3 ---
Discharge Summary Visit Information Date of Admission: March 03, 2017 Date of Discharge: March 09, 2017 Admitting Diagnosis Comment: 1. AAA, 4 cm (6 mm bigger than last imaging) 2. Severe COPD, end stage, O2 dependent 3. SYmptomatic cholelithiasis, VERY poor surgical candidate 4. MOD to severe COPD 5. hypokalemia 6. AOCD 7. DNR Final Diagnosis Problems Medical Problems: (1) Abdominal pain Status: Acute Brief Hospital Course Allergies Allergies Coded Allergies Type Severity Reaction Last Updated Verified Sulfa (Sulfonamide Antibiotics) Allergy Intermediate 01/05/15 Yes cephalexin Allergy Intermediate Itching 06/17/16 Yes clarithromycin Allergy Intermediate 01/05/15 Yes levofloxacin Allergy Intermediate Itching 06/17/16 Yes Vital Signs Vital Signs Date Time Temp Pulse Resp B/P (MAP) Pulse Ox O2 Delivery O2 Flow Rate FiO2 03/09/17 11:47 Nasal Cannula 3.0 03/09/17 11:00 97.9 86 20 166/48 (87) 96 97.9 Brief Hospital Course Ms. Hodge is a 76 old female quite well known to us, hx severe end stage COPD on 3 LNC home o2, admitted for another excarebtion. STayed 7 days with us,. THIS time,f inally agreed to be transferred to SNU (meets criteria, very weak), and is now DNR. Rx provided. BUt couirse remarkable for symptomatic cholelith, GS consulted, very poor surgical candidate given respi status, and LFTS ok and no signif pain, ALso had AAA that was larger than last imaging, vasc sx consulted, also stands the same - very poor surgical candidtae and pt would not want to have major sx either, Pt seen and examined. DIspO; SNU DNR consults: pulmo, GS and vasc sx Proc; None Marquez 34 mins Discharge Information Condition at Discharge: Improved, Stable Disposition/Orders: Other (SNF) Scheduled Amlodipine Besylate (Amlodipine Besylate), 5 MG PO DAILY, (Reported) Aspirin (Aspir 81), 81 MG PO DAILY, (Reported) Atorvastatin Calcium (Atorvastatin Calcium), 1 TAB PO HS, (Reported) Azithromycin (Azithromycin Tablet), 250 MG PO DAILY, (Reported) Clopidogrel Bisulfate (Plavix), 75 MG PO DAILY, (Reported) Furosemide (Furosemide), Unknown Dose PO DAILY, (Reported) Levofloxacin (Levaquin), 1 TAB PO QODAY Metoprolol Tartrate (Metoprolol Tartrate), 12.5 MG PO DAILY, (Reported) Prednisone (Prednisone), 10 MG PO QODAY, (Reported) Prednisone (Prednisone), 10 MG PO UD Roflumilast (Daliresp), 250 MCG PO DAILY, (Reported) Spironolactone (Spironolactone), 1 TAB PO DAILY, (Reported) Tiotropium [place] (Spiriva), 1 PUFF IH DAILY, (Reported) Scheduled PRN Albuterol Sulfate (Albuterol Sulfate Neb Soln), 1.25 MG IH Q3HRS PRN for SHORTNESS OF BREATH, (Reported) Alprazolam (Alprazolam), 0.25 MG PO for ANXIETY / AGITATION, (Reported) Miscellaneous Medications Prednisolone Acetate (Prednisolone Acetate), 5 ML OP, (Reported) LITO COX MD March 09, 2017 11:52
[2017-03-09] MEDS: ENALAPRILAT 1.25 MG/ML VIAL. IV SCH ×2 (12:16→18:05)
--- NOTE | 2017-03-09 12:29 | PDOC ---
Subjective: Subjective: Right-sided pain. Trying addition of prune juice for constipation. Objective: Objective: Her was admitted, having an EGD today. Per RN, possible DC to SNU today. Vital Signs: Vital Signs Date Time Temp Pulse Resp B/P (MAP) Pulse Ox O2 Delivery O2 Flow Rate FiO2 03/09/17 12:16 86 166/48 03/09/17 11:47 Nasal Cannula 3.0 03/09/17 11:00 97.9 20 96 97.9 PE: GEN: NAD. sitting on edge of bed, looks better to me LUNGS: decreased, nasal cannula HEART: RRR ABD: RUQ tenderness toward right flank NEURO/PSYCH: A & O 3 A/P: Abd pain, AAA, cholelithiasis -evaluated by vasc and gen surg, no surgical plans due to comorbidities Constipation -on Miralax BID, also trying prune juice -last colonoscopy 2013 -- Possible DC today, okay per GI. Consider Amitiza if needed for constipation. FLORINA SCHUMACHER March 09, 2017 12:29
[2017-03-09 14:50] VITALS: BP 136/79
[2017-03-09 19:30] VITALS: BP 148/55
[2017-03-09] MEDS: FAMOTIDINE 20 MG TABLET. PO SCH (20:36)
[2017-03-09 23:08] VITALS: BP 153/55
[2017-03-10] MEDS: ENALAPRILAT 1.25 MG/ML VIAL. IV SCH ×3 (00:48→12:00)
[2017-03-10 03:28] VITALS: BP 159/55
[2017-03-10 05:50] VITALS: BP 156/54
[2017-03-10] MEDS: HYDROcodone/APAP 5/325MG 1 TAB TABLET PO PRN (06:24)
[2017-03-10 07:00] VITALS: BP 143/87
[2017-03-10] MEDS: ALBUTEROL SULFATE 2.5 MG/3 ML NEBU. NEB SCH ×2 (07:34→11:00)
[2017-03-10] MEDS: VERAPAMIL SR 120 MG TABLET.ER. PO SCH (08:46)
[2017-03-10] MEDS: POLYETHYLENE GLYCOL 3350 17 GM PACKET. PO SCH (08:46)
[2017-03-10] MEDS: METOPROLOL SUCC 24HR ER 25 MG TAB.ER.24H. PO SCH (08:46)
--- NOTE | 2017-03-10 09:41 | PDOC ---
PULMONARY PROGRESS NOTES Subjective better today Vitals Vital Signs Date Time Temp Pulse Resp B/P (MAP) Pulse Ox O2 Delivery O2 Flow Rate FiO2 03/10/17 08:46 66 143/87 03/10/17 07:36 93 Room Air 03/10/17 07:25 16 3.0 03/10/17 07:00 97.5 97.5 ROS: No Nausea, No Chest Pain, No Increase Cough General: Alert, Oriented X4, No acute distress Lungs: Other (no wheezing) Cardiovascular: S1, S2 Abdomen: Soft, Non-tender Neuro Exam: Alert Extremities: No Edema Skin: Warm Medications Active Scripts Medications Dose Route/Sig Max Daily Dose Days Date Category Dose Instructions Prednisone 10 Mg Tablet 10 Mg PO UD 06/17/16 Rx Take 3 tablets by mouth daily for 3 days, then take 2 tablets by mouth daily for 3 days, then take 1 tablet by mouth daily for 3 days, then resume home dose. Levaquin (Levofloxacin) 750 Mg Tablet 1 Tab PO QODAY 06/17/16 Rx Azithromycin Tablet (Azithromycin) 250 Mg Tablet 250 Mg PO DAILY 06/12/16 Reported Spironolactone 25 Mg Tablet 1 Tab PO DAILY 06/12/16 Reported Atorvastatin Calcium 10 Mg Tablet 1 Tab PO HS 07/15/15 Reported NEXT DOSE: 07/15/15 PM Amlodipine Besylate 5 Mg Tablet 5 Mg PO DAILY 07/15/15 Reported NEXT DOSE: 07/16/15 AM Prednisolone Acetate 5 Ml Drops.susp 5 Ml OP 07/10/15 Reported Furosemide 20 Mg Tablet Unknown Dose PO DAILY 01/05/15 Reported NEXT DOSE: 07/16/15 AM Prednisone 5 Mg Tablet 10 Mg PO QODAY 03/06/14 Reported NEXT DOSE: START 07/16/15 40MG DAILY X2 DAYS 30MG DAILY X2 DAYS 20MG DAILY X2 DAYS 10MG DAILY X2 DAYS STOP TAKING AFTER LAST PILL Plavix (Clopidogrel Bisulfate) 75 Mg Tablet 75 Mg PO DAILY 02/28/14 Reported NEXT DOSE: 07/16/15 AM Aspir 81 (Aspirin) 81 Mg Tablet.dr 81 Mg PO DAILY 02/28/14 Reported NEXT DOSE: 07/16/15 AM Metoprolol Tartrate 25 Mg Tablet 12.5 Mg PO DAILY 02/28/14 Reported NEXT DOSE: 07/16/15 AM Alprazolam 0.25 Mg Tab.rapdis 0.25 Mg PO PRN 02/25/14 Reported NEXT DOSE: 07/15/15 AFTERNOON Daliresp (Roflumilast) 500 Mcg Tablet 250 Mcg PO DAILY 02/25/14 Reported NEXT DOSE: 07/16/15 AM Albuterol Sulfate Neb Soln (Albuterol Sulfate) 1.25 Mg/3 Ml Vial.neb 1.25 Mg IH Q3HRS PRN 02/25/14 Reported Spiriva (Tiotropium [place]) 18 Mcg Cap.w.dev 1 Puff IH DAILY 02/25/14 Reported Impression . 1. Chronic respiratory failure. 2. Cholelithiasis, 3. Abdominal aortic aneurysm seen by Vascular Surgery, not a surgical candidate. 4. Right upper quadrant pain ? secondary to cholelithiasis. 5. Tobacco dependence. 6. Chronic anemia. Plan . RESP STATUS IS COMPENSATED WILL CONTINUE THE SAME ON HOME OXYGEN 3 LITRES AGREE WITH SURGEON PT AT HIGH RISK FOR INTERVENTION AWAITING PLANS FOR SKILL KIMMY ANDERSON MD Mar 10, 2017 09:41
[2017-03-10 11:00] VITALS: BP 143/41
--- NOTE | 2017-03-10 11:46 | PDOC ---
Objective: Objective: Per RN - DC this afternoon, no new issues. Vital Signs: Vital Signs Date Time Temp Pulse Resp B/P (MAP) Pulse Ox O2 Delivery O2 Flow Rate FiO2 03/10/17 11:01 Nasal Cannula 3.0 03/10/17 11:00 96.8 72 18 143/41 (72) 94 96.8 PE: GEN: NAD NEURO/PSYCH: asleep, did not awaken A/P: Abd pain, AAA, cholelithiasis, constipation -no surgical plans due to comorbidities -on Miralax BID -- Note DC plans. Continue treatment for constipation. FLORINA SCHUMACHER Mar 10, 2017 11:46
[2017-03-10 15:00] VITALS: BP 145/76
== END 2017-03-10 13:30 | DRG 299 ==
LOC: ER 05:55 → 4 NORTH 10:08
PROVIDERS: ADMIT Internal Medicine; ATTEND Internal Medicine
DX: I71.4 Abdominal aortic aneurysm, without rupture (principal); E43 Unspecified severe protein-calorie malnutrition; J44.1 Chronic obstructive pulmonary disease with (acute) exacerbation; J96.10 Chronic respiratory failure, unspecified whether with hypoxia or hypercapnia; N39.0 Urinary tract infection, site not specified; K80.20 Calculus of gallbladder without cholecystitis without obstruction; D63.8 Anemia in other chronic diseases classified elsewhere; E03.9 Hypothyroidism, unspecified; E78.5 Hyperlipidemia, unspecified; E87.6 Hypokalemia; F17.210 Nicotine dependence, cigarettes, uncomplicated; H35.30 Unspecified macular degeneration; I07.1 Rheumatic tricuspid insufficiency; I10 Essential (primary) hypertension; I25.10 Atherosclerotic heart disease of native coronary artery without angina pectoris; I34.0 Nonrheumatic mitral (valve) insufficiency; I35.1 Nonrheumatic aortic (valve) insufficiency; K42.9 Umbilical hernia without obstruction or gangrene; K57.30 Diverticulosis of large intestine without perforation or abscess without bleeding; K59.00 Constipation, unspecified; K64.0 First degree hemorrhoids; Z51.5 Encounter for palliative care; N60.19 Diffuse cystic mastopathy of unspecified breast; M19.90 Unspecified osteoarthritis, unspecified site; Z66 Do not resuscitate; Z82.49 Family history of ischemic heart disease and other diseases of the circulatory system; I25.2 Old myocardial infarction; Z86.718 Personal history of other venous thrombosis and embolism; Z86.73 Personal history of transient ischemic attack (TIA), and cerebral infarction without residual deficits; Z90.710 Acquired absence of both cervix and uterus; Z95.5 Presence of coronary angioplasty implant and graft; Z99.81 Dependence on supplemental oxygen; Z86.010 Personal history of colon polyps; Z88.2 Allergy status to sulfonamides; Z88.1 Allergy status to other antibiotic agents
CPT/HCPCS: 36415; 71010; 74022; 74177; 76705; 80048; 80053; 80061; 81001; 82040; 83605; 83690; 83735; 83880; 84443; 84484; 85027; 87086; 93005; 93306; 93880; 94250; 94640; 94760; 96361; 96365; 96375; 96376; J0690; J0696; J1200; J2405; J3010; J3480; J3490; J7040; J7620; P9046; Q9967; 97110; 97116; 97530; 99285-25

== ENCOUNTER → 2017-04-20 | Outpatient (CLI) | payer OTHER ==
[~2017-04-20] MED LIST changes: -CLOP75TA27 PO; +CLOP75TA57 PO; +PRED5DRO16 OP; -PRED5DRO6 OP
== END | disposition home or self-care (01) ==
LOC: ECHO 12:21
PROVIDERS: ATTEND Internal Medicine Cardiovascular Disease
DX: I25.10 Atherosclerotic heart disease of native coronary artery without angina pectoris (principal); I65.23 Occlusion and stenosis of bilateral carotid arteries
CPT/HCPCS: 93306

== ENCOUNTER 2017-11-28 19:53 | Inpatient (IN) | payer OTHER ==
[2017-11-28] MEDS ORDERED: 0.9 % SODIUM CHLORIDE 10 ML DISP.SYRIN. IV (20:30)
[2017-11-28 20:35] LABS: ADD MAN DIFF? NO
[2017-11-28 20:37] LABS: BASO # 0.1 x10^3/uL (0.0-0.2); BASO % 1 % (0-3); EOS # 0.1 x10^3/uL (0.0-0.7); EOS % 1 % (0-3); HEMATOCRIT 30.6 % (36.0-47.0); HEMOGLOBIN 9.9 g/dL (12.0-15.5); LYMPH % 17 % (24-48); MEAN CORPUSCULAR HEMOGLOBIN 28 pg (25-35); MEAN CORPUSCULAR HGB CONC 32 g/dL (31-37); MEAN CORPUSCULAR VOLUME 87 fL (79-100); MONO # 0.9 x10^3/uL (0.0-1.1); MONO % 8 % (0-9); NEUT # 8.4 x10^3uL (1.8-7.7); NEUT % 73 % (31-73); PLATELET COUNT 478 x10^3/uL (140-400); RED BLOOD COUNT 3.53 x10^6/uL (3.50-5.40); RED CELL DISTRIBUTION WIDTH 15.4 % (11.5-14.5); WHITE BLOOD COUNT 11.5 x10^3/uL (4.0-11.0)
[2017-11-28] MEDS: ONDANSETRON PF 4 MG/2 ML VIAL. IV (20:48)
[2017-11-28] MEDS: fentaNYL PF VIAL 100 MCG/2 ML VIAL IV ×2 (20:49→23:56)
[2017-11-28 20:51] LABS: INR 0.9 (0.8-1.1); PARTIAL THROMBOPLASTIN TIME 28 SEC (24-38); PROTHROMBIN TIME PATIENT 11.7 SEC (11.7-14.0)
[2017-11-28 20:57] LABS: ANION GAP 4 (6-14); BLOOD UREA NITROGEN 25 mg/dL (7-20); BUN/CREATININE RATIO 28 (6-20); CALCIUM 8.9 mg/dL (8.5-10.1); CARBON DIOXIDE 36 mmol/L (21-32); CHLORIDE 101 mmol/L (98-107); CREATININE 0.9 mg/dL (0.6-1.0); GFR 60.6; GLUCOSE 96 mg/dL (70-99); SODIUM 141 mmol/L (136-145)
[2017-11-28 21:02] LABS: ALBUMIN 2.8 g/dL (3.4-5.0); ALK PHOS 101 U/L (46-116); ALT (SGPT) 28 U/L (14-59); AST (SGOT) 28 U/L (15-37); TOTAL BILIRUBIN 0.2 mg/dL (0.2-1.0); TOTAL PROTEIN 5.7 g/dL (6.4-8.2)
[2017-11-28 21:08] LABS: TROPONINI < 0.017 ng/mL (0.000-0.055)
[2017-11-28 21:09] LABS: NT-PRO BNP 1612 pg/mL (0-449)
[2017-11-28 21:09] LABS: CKMB INDEX 4.2 % (0-4); CKMB MASS 2.5 ng/mL (0.0-3.6); CREATINE KINASE 60 U/L (26-192)
[2017-11-28] MEDS ORDERED: ACETAMINOPHEN 325 MG TABLET. PO (22:45)
[2017-11-29] MEDS: ONDANSETRON PF 4 MG/2 ML VIAL. IV (00:03)
[2017-11-29] MEDS ORDERED: NON FORMULARY ITEM (Albuterol Sulfate (Albuterol Sulfate Neb Soln) 1.25 MG) IH (00:30)
[2017-11-29] MEDS ORDERED: ALBUTEROL SULFATE 2.5 MG/3 ML NEBU. NEB (00:45)
[2017-11-29] MEDS: hydrALAZINE 20 MG/ML VIAL. IVP (00:53)
[2017-11-29] MEDS: fentaNYL PF VIAL 100 MCG/2 ML VIAL IV ×2 (03:48→08:00)
[2017-11-29 04:10] LABS: ADD MAN DIFF? NO
[2017-11-29 04:33] LABS: BASO # 0.1 x10^3/uL (0.0-0.2); BASO % 1 % (0-3); EOS # 0.1 x10^3/uL (0.0-0.7); EOS % 1 % (0-3); HEMATOCRIT 29.1 % (36.0-47.0); HEMOGLOBIN 9.5 g/dL (12.0-15.5); LYMPH # 1.1 x10^3/uL (1.0-4.8); LYMPH % 9 % (24-48); MEAN CORPUSCULAR HEMOGLOBIN 28 pg (25-35); MEAN CORPUSCULAR HGB CONC 33 g/dL (31-37); MEAN CORPUSCULAR VOLUME 87 fL (79-100); MONO % 9 % (0-9); NEUT # 9.8 x10^3uL (1.8-7.7); NEUT % 81 % (31-73); PLATELET COUNT 420 x10^3/uL (140-400); RED BLOOD COUNT 3.35 x10^6/uL (3.50-5.40); RED CELL DISTRIBUTION WIDTH 15.2 % (11.5-14.5); WHITE BLOOD COUNT 12.1 x10^3/uL (4.0-11.0)
[2017-11-29 04:54] LABS: ANION GAP 5 (6-14); BLOOD UREA NITROGEN 25 mg/dL (7-20); CALCIUM 8.5 mg/dL (8.5-10.1); CARBON DIOXIDE 34 mmol/L (21-32); CHLORIDE 100 mmol/L (98-107); CREATININE 0.8 mg/dL (0.6-1.0); GFR 69.4; GLUCOSE 96 mg/dL (70-99); POTASSIUM 3.9 mmol/L (3.5-5.1); SODIUM 139 mmol/L (136-145)
[2017-11-29] MEDS: IPRATRPIUM/ALBUTEROL 0.5/2.5MG 3 ML NEBU. NEB ×4 (07:20→19:16)
[2017-11-29] MEDS: predniSONE 10 MG TABLET PO (07:55)
[2017-11-29] MEDS: ASPIRIN ENTERIC COATED 81 MG TABLET.DR. PO (07:55)
[2017-11-29] MEDS: CLOPIDOGREL BISULFATE 75 MG TABLET PO (07:55)
[2017-11-29] MEDS: ROFLUMILAST 500 MCG TABLET. PO (07:56)
[2017-11-29] MEDS: amLODIPine BESYLATE 5 MG TABLET PO (07:57)
[2017-11-29] MEDS: SPIRONOLACTONE 25 MG TABLET PO (07:57)
[2017-11-29] MEDS: METOPROLOL TART IMMED RELEASE 25 MG TABLET. PO ×2 (07:58→21:38)
[2017-11-29] MEDS: FUROSEMIDE 40 MG/4 ML VIAL. IVP ×2 (07:58→13:35)
[2017-11-29] MEDS ORDERED: FUROSEMIDE 20 MG TABLET PO (09:00)
[2017-11-29] MEDS ORDERED: NON FORMULARY ITEM (Tiotropium Bromide (Spiriva) 1 PUFF) IH (09:00)
[2017-11-29] MEDS: POLYETHYLENE GLYCOL 3350 17 GM PACKET. PO (10:27)
[2017-11-29] MEDS: VERAPAMIL SR 120 MG TABLET.ER. PO ×2 (10:31→21:39)
[2017-11-29] MEDS: DOCUSATE SODIUM 100 MG CAPSULE. PO (10:31)
[2017-11-29] MEDS: oxyCODONE/APAP 5/325 1 TAB TABLET PO ×2 (10:58→21:40)
[2017-11-29] MEDS ORDERED: diazePAM 5 MG TABLET PO (11:15)
[2017-11-29] MEDS ORDERED: BISACODYL 10 MG SUPP.RECT. PR (11:15)
[2017-11-29] MEDS: BISACODYL 5 MG TABLET.DR. PO (13:28)
[2017-11-29] MEDS: LIDOCAINE (700MG/PATCH) PATCH. TD (13:28)
[2017-11-29] MEDS: CYCLOBENZAPRINE 10 MG TABLET. PO ×3 (13:28→23:53)
[2017-11-29] MEDS: ATORVASTATIN CALCIUM 10 MG TABLET. PO (21:00)
[2017-11-30] MEDS: CYCLOBENZAPRINE 10 MG TABLET. PO ×4 (06:46→23:43)
[2017-11-30] MEDS: IPRATRPIUM/ALBUTEROL 0.5/2.5MG 3 ML NEBU. NEB ×4 (07:30→19:07)
[2017-11-30] MEDS: DOCUSATE SODIUM 100 MG CAPSULE. PO (09:00)
[2017-11-30] MEDS: BISACODYL 5 MG TABLET.DR. PO (09:00)
[2017-11-30] MEDS: VERAPAMIL SR 120 MG TABLET.ER. PO ×2 (09:24→20:40)
[2017-11-30] MEDS: CLOPIDOGREL BISULFATE 75 MG TABLET PO (09:24)
[2017-11-30] MEDS: predniSONE 10 MG TABLET PO (09:26)
[2017-11-30] MEDS: LIDOCAINE (700MG/PATCH) PATCH. TD (09:28)
[2017-11-30] MEDS: METOPROLOL TART IMMED RELEASE 25 MG TABLET. PO ×2 (09:28→20:40)
[2017-11-30] MEDS: SPIRONOLACTONE 25 MG TABLET PO (09:28)
[2017-11-30] MEDS: ASPIRIN ENTERIC COATED 81 MG TABLET.DR. PO (09:29)
[2017-11-30] MEDS: ROFLUMILAST 500 MCG TABLET. PO (09:29)
[2017-11-30] MEDS: amLODIPine BESYLATE 5 MG TABLET PO (09:29)
[2017-11-30] MEDS: POLYETHYLENE GLYCOL 3350 17 GM PACKET. PO (09:30)
[2017-11-30] MEDS: FUROSEMIDE 40 MG/4 ML VIAL. IVP ×2 (09:31→15:34)
[2017-11-30] MEDS: oxyCODONE/APAP 5/325 1 TAB TABLET PO (09:54)
[2017-11-30] MEDS: BUPIVACAINE MPF 0.25% 10 ML VIAL. IJ (13:45)
[2017-11-30] MEDS: methylPREDNISolone ACETATE 40 MG/ML VIAL. IM ×2 (13:45)
[2017-11-30] MEDS: ONDANSETRON PF 4 MG/2 ML VIAL. IV (20:39)
[2017-11-30] MEDS: ATORVASTATIN CALCIUM 10 MG TABLET. PO (20:54)
[2017-11-30] MEDS: LABETALOL 20 MG/4 ML DISP.SYRIN. IVP (22:23)
[2017-11-30] MEDS: ALPRAZolam 0.25 MG TABLET PO (22:23)
[2017-11-30] MEDS: PROMETHAZINE 12.5 MG in IV NORMAL SALINE 50ML 50 ML IV (23:05)
[2017-12-01] MEDS: ONDANSETRON PF 4 MG/2 ML VIAL. IV (03:23)
[2017-12-01] MEDS: hydrALAZINE 20 MG/ML VIAL. IVP (03:24)
[2017-12-01] MEDS: CYCLOBENZAPRINE 10 MG TABLET. PO ×3 (06:15→19:12)
[2017-12-01] MEDS: IPRATRPIUM/ALBUTEROL 0.5/2.5MG 3 ML NEBU. NEB ×4 (07:02→20:33)
[2017-12-01] MEDS: BISACODYL 5 MG TABLET.DR. PO (08:57)
[2017-12-01] MEDS: DOCUSATE SODIUM 100 MG CAPSULE. PO (08:57)
[2017-12-01] MEDS: predniSONE 10 MG TABLET PO (08:57)
[2017-12-01] MEDS: amLODIPine BESYLATE 5 MG TABLET PO (08:57)
[2017-12-01] MEDS: VERAPAMIL SR 120 MG TABLET.ER. PO ×2 (08:57→20:01)
[2017-12-01] MEDS: ASPIRIN ENTERIC COATED 81 MG TABLET.DR. PO (08:58)
[2017-12-01] MEDS: METOPROLOL TART IMMED RELEASE 25 MG TABLET. PO ×2 (08:58→20:02)
[2017-12-01] MEDS: SPIRONOLACTONE 25 MG TABLET PO (08:58)
[2017-12-01] MEDS: LIDOCAINE (700MG/PATCH) PATCH. TD (08:59)
[2017-12-01] MEDS: POLYETHYLENE GLYCOL 3350 17 GM PACKET. PO (08:59)
[2017-12-01] MEDS: CLOPIDOGREL BISULFATE 75 MG TABLET PO (09:03)
[2017-12-01] MEDS: ROFLUMILAST 500 MCG TABLET. PO (09:03)
[2017-12-01] MEDS: FUROSEMIDE 40 MG/4 ML VIAL. IVP (09:07)
[2017-12-01] MEDS: ISOSORBIDE MONONITRATE ER 30 MG TAB.ER.24H PO (12:30)
[2017-12-01] MEDS: ATORVASTATIN CALCIUM 10 MG TABLET. PO (20:00)
[2017-12-02 06:00] LABS: BASO % 0 % (0-3); EOS % 0 % (0-3); HEMATOCRIT 26.1 % (36.0-47.0); HEMOGLOBIN 8.4 g/dL (12.0-15.5); LYMPH # 0.9 x10^3/uL (1.0-4.8); LYMPH % 6 % (24-48); MEAN CORPUSCULAR HEMOGLOBIN 28 pg (25-35); MEAN CORPUSCULAR HGB CONC 32 g/dL (31-37); MEAN CORPUSCULAR VOLUME 87 fL (79-100); MONO # 0.9 x10^3/uL (0.0-1.1); MONO % 6 % (0-9); NEUT # 13.6 x10^3uL (1.8-7.7); NEUT % 88 % (31-73); PLATELET COUNT 435 x10^3/uL (140-400); RED BLOOD COUNT 2.99 x10^6/uL (3.50-5.40); RED CELL DISTRIBUTION WIDTH 15.5 % (11.5-14.5); WHITE BLOOD COUNT 15.4 x10^3/uL (4.0-11.0)
[2017-12-02] MEDS: CYCLOBENZAPRINE 10 MG TABLET. PO ×4 (06:00→18:02)
[2017-12-02 06:10] LABS: ADD MAN DIFF? YES
[2017-12-02 06:26] LABS: ALBUMIN 2.5 g/dL (3.4-5.0); ALBUMIN/GLOBULIN RATIO 0.8 (1.0-1.7); ALK PHOS 77 U/L (46-116); ALT (SGPT) 30 U/L (14-59); ANION GAP 5 (6-14); AST (SGOT) 35 U/L (15-37); BLOOD UREA NITROGEN 42 mg/dL (7-20); BUN/CREATININE RATIO 30 (6-20); CALCIUM 8.3 mg/dL (8.5-10.1); CARBON DIOXIDE 37 mmol/L (21-32); CHLORIDE 97 mmol/L (98-107); CREATININE 1.4 mg/dL (0.6-1.0); GFR 36.4; GLUCOSE 83 mg/dL (70-99); POTASSIUM 4.1 mmol/L (3.5-5.1); SODIUM 139 mmol/L (136-145); TOTAL BILIRUBIN 0.4 mg/dL (0.2-1.0); TOTAL PROTEIN 5.5 g/dL (6.4-8.2)
[2017-12-02] MEDS: IPRATRPIUM/ALBUTEROL 0.5/2.5MG 3 ML NEBU. NEB ×4 (07:03→18:59)
[2017-12-02] MEDS: VERAPAMIL SR 120 MG TABLET.ER. PO ×2 (09:00→21:16)
[2017-12-02] MEDS: SPIRONOLACTONE 25 MG TABLET PO (09:00)
[2017-12-02] MEDS: CLOPIDOGREL BISULFATE 75 MG TABLET PO (09:00)
[2017-12-02] MEDS: predniSONE 10 MG TABLET PO (09:00)
[2017-12-02] MEDS: DOCUSATE SODIUM 100 MG CAPSULE. PO (09:00)
[2017-12-02] MEDS: ROFLUMILAST 500 MCG TABLET. PO (09:00)
[2017-12-02] MEDS: POLYETHYLENE GLYCOL 3350 17 GM PACKET. PO (09:00)
[2017-12-02] MEDS: BISACODYL 5 MG TABLET.DR. PO (09:00)
[2017-12-02] MEDS: ASPIRIN ENTERIC COATED 81 MG TABLET.DR. PO (09:00)
[2017-12-02 09:08] LABS: % BANDS 11 % (0-9); % LYMPHS 3 % (24-48); % MONOS 2 % (0-10); % SEGS 84 % (35-66)
[2017-12-02 09:09] LABS: PLT ESTIMATE INCREASED (ADEQUATE)
[2017-12-02] MEDS: LIDOCAINE (700MG/PATCH) PATCH. TD (11:26)
[2017-12-02] MEDS: ISOSORBIDE MONONITRATE ER 30 MG TAB.ER.24H PO (11:27)
[2017-12-02] MEDS: METOPROLOL TART IMMED RELEASE 25 MG TABLET. PO ×2 (11:27→21:17)
[2017-12-02] MEDS ORDERED: LIDOCAINE 2% 20 ML VIAL. (13:49)
[2017-12-02] MEDS ORDERED: IODIXANOL 320 MG/ML 100 ML VIAL. (13:49)
[2017-12-02] MEDS ORDERED: fentaNYL PF VIAL 100 MCG/2 ML VIAL (14:09)
[2017-12-02] MEDS ORDERED: MIDAZOLAM HCL/PF 2 MG/2 ML VIAL. (14:09)
[2017-12-02] MEDS: oxyCODONE/APAP 5/325 1 TAB TABLET PO (19:50)
[2017-12-02] MEDS: ATORVASTATIN CALCIUM 10 MG TABLET. PO (21:16)
[2017-12-03] MEDS: CYCLOBENZAPRINE 10 MG TABLET. PO ×4 (00:19→18:00)
[2017-12-03 05:24] LABS: ADD MAN DIFF? NO
[2017-12-03 05:46] LABS: BASO % 0 % (0-3); EOS # 0.1 x10^3/uL (0.0-0.7); EOS % 1 % (0-3); HEMATOCRIT 24.2 % (36.0-47.0); HEMOGLOBIN 7.8 g/dL (12.0-15.5); LYMPH # 0.9 x10^3/uL (1.0-4.8); LYMPH % 10 % (24-48); MEAN CORPUSCULAR HEMOGLOBIN 28 pg (25-35); MEAN CORPUSCULAR HGB CONC 32 g/dL (31-37); MEAN CORPUSCULAR VOLUME 88 fL (79-100); MONO # 0.7 x10^3/uL (0.0-1.1); MONO % 7 % (0-9); NEUT # 7.8 x10^3uL (1.8-7.7); NEUT % 82 % (31-73); PLATELET COUNT 379 x10^3/uL (140-400); RED BLOOD COUNT 2.74 x10^6/uL (3.50-5.40); RED CELL DISTRIBUTION WIDTH 15.3 % (11.5-14.5); WHITE BLOOD COUNT 9.5 x10^3/uL (4.0-11.0)
[2017-12-03 06:02] LABS: ALBUMIN 2.2 g/dL (3.4-5.0); ALBUMIN/GLOBULIN RATIO 0.8 (1.0-1.7); ALK PHOS 69 U/L (46-116); ALT (SGPT) 29 U/L (14-59); ANION GAP 4 (6-14); AST (SGOT) 38 U/L (15-37); BLOOD UREA NITROGEN 36 mg/dL (7-20); BUN/CREATININE RATIO 33 (6-20); CALCIUM 8.3 mg/dL (8.5-10.1); CARBON DIOXIDE 35 mmol/L (21-32); CHLORIDE 101 mmol/L (98-107); CREATININE 1.1 mg/dL (0.6-1.0); GLUCOSE 68 mg/dL (70-99); POTASSIUM 3.7 mmol/L (3.5-5.1); SODIUM 140 mmol/L (136-145); TOTAL BILIRUBIN 0.3 mg/dL (0.2-1.0); TOTAL PROTEIN 5.1 g/dL (6.4-8.2)
[2017-12-03] MEDS: IPRATRPIUM/ALBUTEROL 0.5/2.5MG 3 ML NEBU. NEB ×4 (07:17→19:02)
[2017-12-03] MEDS: predniSONE 10 MG TABLET PO (09:23)
[2017-12-03] MEDS: DOCUSATE SODIUM 100 MG CAPSULE. PO ×2 (09:23→21:35)
[2017-12-03] MEDS: POLYETHYLENE GLYCOL 3350 17 GM PACKET. PO (09:23)
[2017-12-03] MEDS: ASPIRIN ENTERIC COATED 81 MG TABLET.DR. PO (09:24)
[2017-12-03] MEDS: SPIRONOLACTONE 25 MG TABLET PO (09:24)
[2017-12-03] MEDS: ISOSORBIDE MONONITRATE ER 30 MG TAB.ER.24H PO (09:24)
[2017-12-03] MEDS: VERAPAMIL SR 120 MG TABLET.ER. PO ×2 (09:24→21:41)
[2017-12-03] MEDS: BISACODYL 5 MG TABLET.DR. PO (09:24)
[2017-12-03] MEDS: CLOPIDOGREL BISULFATE 75 MG TABLET PO (09:25)
[2017-12-03] MEDS: ROFLUMILAST 500 MCG TABLET. PO (09:25)
[2017-12-03] MEDS: METOPROLOL TART IMMED RELEASE 25 MG TABLET. PO ×2 (09:25→21:34)
[2017-12-03 09:26] LABS: CHOLESTEROL 134 mg/dL (0-200); HDLC 45 mg/dL (40-60); LDLC 62 mg/dL (0-100); NON-HDL CHOLESTEROL 89 mg/dL (0-129); TRIGLYCERIDES 137 mg/dL (0-150); VLDLC 27 mg/dL (0-40)
[2017-12-03] MEDS: LIDOCAINE (700MG/PATCH) PATCH. TD (09:32)
[2017-12-03] MEDS ORDERED: MAGNESIUM HYDROXIDE 2,400 MG/30 ML ORAL.SUSP. PO (19:30)
[2017-12-03] MEDS: ATORVASTATIN CALCIUM 10 MG TABLET. PO (21:34)
[2017-12-03] MEDS: ALPRAZolam 0.25 MG TABLET PO (21:35)
[2017-12-04] MEDS: oxyCODONE/APAP 5/325 1 TAB TABLET PO ×2 (00:40→22:33)
[2017-12-04 05:17] LABS: ADD MAN DIFF? NO
[2017-12-04 05:34] LABS: BASO % 0 % (0-3); EOS % 0 % (0-3); HEMATOCRIT 23.7 % (36.0-47.0); HEMOGLOBIN 7.7 g/dL (12.0-15.5); LYMPH % 12 % (24-48); MEAN CORPUSCULAR HEMOGLOBIN 29 pg (25-35); MEAN CORPUSCULAR HGB CONC 32 g/dL (31-37); MEAN CORPUSCULAR VOLUME 88 fL (79-100); MONO # 0.7 x10^3/uL (0.0-1.1); MONO % 8 % (0-9); NEUT # 6.8 x10^3uL (1.8-7.7); NEUT % 79 % (31-73); PLATELET COUNT 390 x10^3/uL (140-400); RED CELL DISTRIBUTION WIDTH 15.7 % (11.5-14.5); WHITE BLOOD COUNT 8.5 x10^3/uL (4.0-11.0)
[2017-12-04] MEDS: CYCLOBENZAPRINE 10 MG TABLET. PO ×4 (05:37→18:50)
[2017-12-04 05:47] LABS: ANION GAP 5 (6-14); BLOOD UREA NITROGEN 32 mg/dL (7-20); CALCIUM 8.1 mg/dL (8.5-10.1); CARBON DIOXIDE 35 mmol/L (21-32); CHLORIDE 101 mmol/L (98-107); CREATININE 1.1 mg/dL (0.6-1.0); GLUCOSE 78 mg/dL (70-99); POTASSIUM 4.1 mmol/L (3.5-5.1); SODIUM 141 mmol/L (136-145)
[2017-12-04] MEDS: IPRATRPIUM/ALBUTEROL 0.5/2.5MG 3 ML NEBU. NEB ×4 (07:13→19:54)
[2017-12-04] MEDS: ROFLUMILAST 500 MCG TABLET. PO (08:49)
[2017-12-04] MEDS: BISACODYL 5 MG TABLET.DR. PO (08:49)
[2017-12-04] MEDS: POLYETHYLENE GLYCOL 3350 17 GM PACKET. PO (08:49)
[2017-12-04] MEDS: DOCUSATE SODIUM 100 MG CAPSULE. PO ×2 (08:49→20:16)
[2017-12-04] MEDS: predniSONE 10 MG TABLET PO (08:50)
[2017-12-04] MEDS: SPIRONOLACTONE 25 MG TABLET PO (08:50)
[2017-12-04] MEDS: CLOPIDOGREL BISULFATE 75 MG TABLET PO (08:50)
[2017-12-04] MEDS: ASPIRIN ENTERIC COATED 81 MG TABLET.DR. PO (08:50)
[2017-12-04] MEDS: LIDOCAINE (700MG/PATCH) PATCH. TD (09:00)
[2017-12-04] MEDS: ISOSORBIDE MONONITRATE ER 30 MG TAB.ER.24H PO (12:28)
[2017-12-04] MEDS: METOPROLOL TART IMMED RELEASE 25 MG TABLET. PO ×2 (12:28→20:18)
[2017-12-04] MEDS: VERAPAMIL SR 120 MG TABLET.ER. PO ×2 (12:28→20:18)
[2017-12-04] MEDS: ATORVASTATIN CALCIUM 10 MG TABLET. PO (20:16)
[2017-12-04] MEDS: ALPRAZolam 0.25 MG TABLET PO (22:32)
[2017-12-05 05:27] LABS: ADD MAN DIFF? NO
[2017-12-05 05:30] LABS: BASO % 0 % (0-3); EOS # 0.1 x10^3/uL (0.0-0.7); EOS % 1 % (0-3); HEMATOCRIT 22.1 % (36.0-47.0); HEMOGLOBIN 7.1 g/dL (12.0-15.5); LYMPH % 13 % (24-48); MEAN CORPUSCULAR HEMOGLOBIN 29 pg (25-35); MEAN CORPUSCULAR HGB CONC 32 g/dL (31-37); MEAN CORPUSCULAR VOLUME 88 fL (79-100); MONO # 0.7 x10^3/uL (0.0-1.1); MONO % 9 % (0-9); NEUT # 6.4 x10^3uL (1.8-7.7); NEUT % 78 % (31-73); PLATELET COUNT 383 x10^3/uL (140-400); RED BLOOD COUNT 2.51 x10^6/uL (3.50-5.40); RED CELL DISTRIBUTION WIDTH 15.8 % (11.5-14.5); WHITE BLOOD COUNT 8.3 x10^3/uL (4.0-11.0)
[2017-12-05] MEDS: CYCLOBENZAPRINE 10 MG TABLET. PO ×5 (05:47→23:43)
[2017-12-05 06:04] LABS: ANION GAP 6 (6-14); BLOOD UREA NITROGEN 27 mg/dL (7-20); CALCIUM 8.1 mg/dL (8.5-10.1); CARBON DIOXIDE 33 mmol/L (21-32); CHLORIDE 100 mmol/L (98-107); GFR 53.6; GLUCOSE 83 mg/dL (70-99); POTASSIUM 3.8 mmol/L (3.5-5.1); SODIUM 139 mmol/L (136-145)
[2017-12-05] MEDS: IPRATRPIUM/ALBUTEROL 0.5/2.5MG 3 ML NEBU. NEB ×4 (07:12→19:52)
[2017-12-05] MEDS: ONDANSETRON PF 4 MG/2 ML VIAL. IV (09:10)
[2017-12-05] MEDS: METOPROLOL TART IMMED RELEASE 25 MG TABLET. PO ×2 (09:22→20:43)
[2017-12-05] MEDS: CLOPIDOGREL BISULFATE 75 MG TABLET PO (09:22)
[2017-12-05] MEDS: ASPIRIN ENTERIC COATED 81 MG TABLET.DR. PO (09:22)
[2017-12-05] MEDS: ISOSORBIDE MONONITRATE ER 30 MG TAB.ER.24H PO (09:22)
[2017-12-05] MEDS: DOCUSATE SODIUM 100 MG CAPSULE. PO ×2 (09:22→20:41)
[2017-12-05] MEDS: SPIRONOLACTONE 25 MG TABLET PO (09:22)
[2017-12-05] MEDS: VERAPAMIL SR 120 MG TABLET.ER. PO ×2 (09:23→20:42)
[2017-12-05] MEDS: predniSONE 10 MG TABLET PO (09:23)
[2017-12-05] MEDS: POLYETHYLENE GLYCOL 3350 17 GM PACKET. PO (09:23)
[2017-12-05] MEDS: BISACODYL 5 MG TABLET.DR. PO (09:23)
[2017-12-05] MEDS: ROFLUMILAST 500 MCG TABLET. PO (09:23)
[2017-12-05] MEDS: LIDOCAINE (700MG/PATCH) PATCH. TD (09:24)
[2017-12-05 12:17] LABS: RETIC COUNT 1.2 % (0.5-2.5)
[2017-12-05 12:27] LABS: % SAT IRON 8 % (15-34); IRON,SERUM 19 ug/dL (50-170)
[2017-12-05 12:41] LABS: FERRITIN 37 ng/mL (8-252)
[2017-12-05] MEDS: IRON SUCROSE COMPLEX 500 MG in IV NORMAL SALINE 250ML 250 ML IV (13:05)
[2017-12-05 13:07] LABS: FOLATE 8.52 ng/ml (3.2-20.0)
[2017-12-05 13:07] LABS: VITAMIN-B12 701 pg/mL (247-911)
[2017-12-05] MEDS: ALPRAZolam 0.25 MG TABLET PO (20:41)
[2017-12-05] MEDS: ATORVASTATIN CALCIUM 10 MG TABLET. PO (20:42)
[2017-12-05] MEDS: oxyCODONE/APAP 5/325 1 TAB TABLET PO (20:43)
[2017-12-06 04:36] LABS: ADD MAN DIFF? NO
[2017-12-06 04:44] LABS: BASO % 0 % (0-3); EOS % 0 % (0-3); HEMATOCRIT 25.8 % (36.0-47.0); HEMOGLOBIN 8.3 g/dL (12.0-15.5); LYMPH # 0.8 x10^3/uL (1.0-4.8); LYMPH % 7 % (24-48); MEAN CORPUSCULAR HEMOGLOBIN 29 pg (25-35); MEAN CORPUSCULAR HGB CONC 32 g/dL (31-37); MEAN CORPUSCULAR VOLUME 89 fL (79-100); MONO % 9 % (0-9); NEUT # 9.4 x10^3uL (1.8-7.7); NEUT % 84 % (31-73); PLATELET COUNT 483 x10^3/uL (140-400); RED CELL DISTRIBUTION WIDTH 15.8 % (11.5-14.5); WHITE BLOOD COUNT 11.3 x10^3/uL (4.0-11.0)
[2017-12-06 05:23] LABS: ANION GAP 2 (6-14); BLOOD UREA NITROGEN 27 mg/dL (7-20); CALCIUM 8.2 mg/dL (8.5-10.1); CARBON DIOXIDE 37 mmol/L (21-32); CHLORIDE 102 mmol/L (98-107); CREATININE 1.1 mg/dL (0.6-1.0); GLUCOSE 80 mg/dL (70-99); POTASSIUM 4.8 mmol/L (3.5-5.1); SODIUM 141 mmol/L (136-145)
[2017-12-06] MEDS: CYCLOBENZAPRINE 10 MG TABLET. PO ×3 (05:44→18:15)
[2017-12-06] MEDS: IPRATRPIUM/ALBUTEROL 0.5/2.5MG 3 ML NEBU. NEB ×4 (08:28→20:23)
[2017-12-06] MEDS: ASPIRIN ENTERIC COATED 81 MG TABLET.DR. PO (08:29)
[2017-12-06] MEDS: ISOSORBIDE MONONITRATE ER 30 MG TAB.ER.24H PO (08:30)
[2017-12-06] MEDS: DOCUSATE SODIUM 100 MG CAPSULE. PO ×2 (08:30→20:14)
[2017-12-06] MEDS: ROFLUMILAST 500 MCG TABLET. PO (08:30)
[2017-12-06] MEDS: predniSONE 10 MG TABLET PO (08:30)
[2017-12-06] MEDS: CLOPIDOGREL BISULFATE 75 MG TABLET PO (08:30)
[2017-12-06] MEDS: SPIRONOLACTONE 25 MG TABLET PO (08:31)
[2017-12-06] MEDS: VERAPAMIL SR 120 MG TABLET.ER. PO ×2 (08:31→20:14)
[2017-12-06] MEDS: BISACODYL 5 MG TABLET.DR. PO (08:31)
[2017-12-06] MEDS: POLYETHYLENE GLYCOL 3350 17 GM PACKET. PO (08:31)
[2017-12-06] MEDS: METOPROLOL TART IMMED RELEASE 25 MG TABLET. PO ×2 (08:31→20:14)
[2017-12-06] MEDS: LIDOCAINE (700MG/PATCH) PATCH. TD (08:41)
[2017-12-06] MEDS: oxyCODONE/APAP 5/325 1 TAB TABLET PO (20:13)
[2017-12-06] MEDS: ATORVASTATIN CALCIUM 10 MG TABLET. PO (20:14)
[2017-12-07] MEDS: CYCLOBENZAPRINE 10 MG TABLET. PO ×4 (01:02→21:54)
[2017-12-07 06:08] LABS: ADD MAN DIFF? NO
[2017-12-07 06:15] LABS: BASO % 0 % (0-3); EOS % 0 % (0-3); HEMATOCRIT 24.6 % (36.0-47.0); HEMOGLOBIN 7.8 g/dL (12.0-15.5); LYMPH # 1.4 x10^3/uL (1.0-4.8); LYMPH % 10 % (24-48); MEAN CORPUSCULAR HEMOGLOBIN 29 pg (25-35); MEAN CORPUSCULAR HGB CONC 32 g/dL (31-37); MEAN CORPUSCULAR VOLUME 89 fL (79-100); MONO # 1.3 x10^3/uL (0.0-1.1); MONO % 9 % (0-9); NEUT # 11.3 x10^3uL (1.8-7.7); NEUT % 80 % (31-73); PLATELET COUNT 499 x10^3/uL (140-400); RED BLOOD COUNT 2.75 x10^6/uL (3.50-5.40); RED CELL DISTRIBUTION WIDTH 16.2 % (11.5-14.5)
[2017-12-07 06:43] LABS: ANION GAP 5 (6-14); BLOOD UREA NITROGEN 27 mg/dL (7-20); CALCIUM 8.5 mg/dL (8.5-10.1); CARBON DIOXIDE 32 mmol/L (21-32); CHLORIDE 101 mmol/L (98-107); GFR 53.6; GLUCOSE 73 mg/dL (70-99); POTASSIUM 4.6 mmol/L (3.5-5.1); SODIUM 138 mmol/L (136-145)
[2017-12-07] MEDS: IPRATRPIUM/ALBUTEROL 0.5/2.5MG 3 ML NEBU. NEB ×4 (08:03→18:15)
[2017-12-07] MEDS: LIDOCAINE (700MG/PATCH) PATCH. TD (09:00)
[2017-12-07] MEDS: POLYETHYLENE GLYCOL 3350 17 GM PACKET. PO (09:00)
[2017-12-07] MEDS: BISACODYL 5 MG TABLET.DR. PO (09:00)
[2017-12-07] MEDS: DOCUSATE SODIUM 100 MG CAPSULE. PO ×2 (09:11→21:00)
[2017-12-07] MEDS: METOPROLOL TART IMMED RELEASE 25 MG TABLET. PO ×2 (09:11→21:54)
[2017-12-07] MEDS: ROFLUMILAST 500 MCG TABLET. PO (09:11)
[2017-12-07] MEDS: SPIRONOLACTONE 25 MG TABLET PO (09:12)
[2017-12-07] MEDS: CLOPIDOGREL BISULFATE 75 MG TABLET PO (09:14)
[2017-12-07] MEDS: VERAPAMIL SR 120 MG TABLET.ER. PO ×2 (09:14→21:55)
[2017-12-07] MEDS: ASPIRIN ENTERIC COATED 81 MG TABLET.DR. PO (09:15)
[2017-12-07] MEDS: predniSONE 10 MG TABLET PO (09:16)
[2017-12-07] MEDS: ISOSORBIDE MONONITRATE ER 30 MG TAB.ER.24H PO (09:17)
[2017-12-07] MEDS: oxyCODONE/APAP 5/325 1 TAB TABLET PO (10:59)
[2017-12-07] MEDS: ATORVASTATIN CALCIUM 10 MG TABLET. PO (21:54)
[2017-12-08] MEDS: oxyCODONE/APAP 5/325 1 TAB TABLET PO ×2 (00:52→21:31)
[2017-12-08] MEDS: CYCLOBENZAPRINE 10 MG TABLET. PO ×4 (05:41→18:00)
[2017-12-08 06:01] LABS: ADD MAN DIFF? NO
[2017-12-08 06:15] LABS: BASO % 0 % (0-3); EOS % 0 % (0-3); HEMATOCRIT 22.8 % (36.0-47.0); HEMOGLOBIN 7.3 g/dL (12.0-15.5); LYMPH # 1.4 x10^3/uL (1.0-4.8); LYMPH % 11 % (24-48); MEAN CORPUSCULAR HEMOGLOBIN 29 pg (25-35); MEAN CORPUSCULAR HGB CONC 32 g/dL (31-37); MEAN CORPUSCULAR VOLUME 89 fL (79-100); MONO # 1.2 x10^3/uL (0.0-1.1); MONO % 9 % (0-9); NEUT # 10.2 x10^3uL (1.8-7.7); NEUT % 80 % (31-73); PLATELET COUNT 447 x10^3/uL (140-400); RED BLOOD COUNT 2.55 x10^6/uL (3.50-5.40); RED CELL DISTRIBUTION WIDTH 16.1 % (11.5-14.5); WHITE BLOOD COUNT 12.8 x10^3/uL (4.0-11.0)
[2017-12-08 06:30] LABS: ANION GAP 3 (6-14); BLOOD UREA NITROGEN 26 mg/dL (7-20); CARBON DIOXIDE 33 mmol/L (21-32); CHLORIDE 102 mmol/L (98-107); CREATININE 0.9 mg/dL (0.6-1.0); GFR 60.6; GLUCOSE 67 mg/dL (70-99); POTASSIUM 4.5 mmol/L (3.5-5.1); SODIUM 138 mmol/L (136-145)
[2017-12-08] MEDS: IPRATRPIUM/ALBUTEROL 0.5/2.5MG 3 ML NEBU. NEB ×4 (07:43→19:32)
[2017-12-08] MEDS: LIDOCAINE (700MG/PATCH) PATCH. TD (09:00)
[2017-12-08] MEDS: BISACODYL 5 MG TABLET.DR. PO (09:00)
[2017-12-08] MEDS: POLYETHYLENE GLYCOL 3350 17 GM PACKET. PO (09:00)
[2017-12-08] MEDS: DOCUSATE SODIUM 100 MG CAPSULE. PO ×2 (09:00→21:30)
[2017-12-08] MEDS: predniSONE 10 MG TABLET PO (09:47)
[2017-12-08] MEDS: CLOPIDOGREL BISULFATE 75 MG TABLET PO (09:47)
[2017-12-08] MEDS: ASPIRIN ENTERIC COATED 81 MG TABLET.DR. PO (09:49)
[2017-12-08] MEDS: METOPROLOL TART IMMED RELEASE 25 MG TABLET. PO ×2 (09:49→21:37)
[2017-12-08] MEDS: SPIRONOLACTONE 25 MG TABLET PO (09:50)
[2017-12-08] MEDS: VERAPAMIL SR 120 MG TABLET.ER. PO ×2 (09:50→21:30)
[2017-12-08] MEDS: ROFLUMILAST 500 MCG TABLET. PO (09:51)
[2017-12-08] MEDS: ISOSORBIDE MONONITRATE ER 30 MG TAB.ER.24H PO (09:52)
[2017-12-08 15:21] LABS: THYROID STIM HORMONE (TSH) 1.328 uIU/mL (0.358-3.74)
[2017-12-08] MEDS: GADOBUTROL 7.5 MMOL/7.5 ML VIAL IV (16:55)
[2017-12-08] MEDS: CHOLECALCIFEROL (VITAMIN D3) 5,000 UNIT CAPSULE PO (21:30)
[2017-12-08] MEDS: ATORVASTATIN CALCIUM 10 MG TABLET. PO (21:30)
[2017-12-08] MEDS: CALCIUM CARBONATE 500 MG TABLET PO (21:35)
[2017-12-09 03:57] LABS: ADD MAN DIFF? NO
[2017-12-09 04:07] LABS: BASO % 0 % (0-3); EOS % 0 % (0-3); HEMOGLOBIN 7.4 g/dL (12.0-15.5); LYMPH # 1.1 x10^3/uL (1.0-4.8); LYMPH % 9 % (24-48); MEAN CORPUSCULAR HEMOGLOBIN 28 pg (25-35); MEAN CORPUSCULAR HGB CONC 31 g/dL (31-37); MEAN CORPUSCULAR VOLUME 90 fL (79-100); MONO # 1.2 x10^3/uL (0.0-1.1); MONO % 9 % (0-9); NEUT # 10.5 x10^3uL (1.8-7.7); NEUT % 82 % (31-73); PLATELET COUNT 466 x10^3/uL (140-400); RED BLOOD COUNT 2.67 x10^6/uL (3.50-5.40); RED CELL DISTRIBUTION WIDTH 16.8 % (11.5-14.5); WHITE BLOOD COUNT 12.8 x10^3/uL (4.0-11.0)
[2017-12-09 04:23] LABS: ANION GAP 7 (6-14); BLOOD UREA NITROGEN 20 mg/dL (7-20); CARBON DIOXIDE 31 mmol/L (21-32); CHLORIDE 103 mmol/L (98-107); CREATININE 0.8 mg/dL (0.6-1.0); GFR 69.4; GLUCOSE 87 mg/dL (70-99); POTASSIUM 4.5 mmol/L (3.5-5.1); SODIUM 141 mmol/L (136-145)
[2017-12-09] MEDS: CYCLOBENZAPRINE 10 MG TABLET. PO ×3 (06:40→12:36)
[2017-12-09] MEDS: IPRATRPIUM/ALBUTEROL 0.5/2.5MG 3 ML NEBU. NEB ×2 (07:26→10:54)
[2017-12-09] MEDS: POLYETHYLENE GLYCOL 3350 17 GM PACKET. PO (08:41)
[2017-12-09] MEDS: METOPROLOL TART IMMED RELEASE 25 MG TABLET. PO (08:42)
[2017-12-09] MEDS: ROFLUMILAST 500 MCG TABLET. PO (08:43)
[2017-12-09] MEDS: SPIRONOLACTONE 25 MG TABLET PO (08:43)
[2017-12-09] MEDS: BISACODYL 5 MG TABLET.DR. PO (08:43)
[2017-12-09] MEDS: VERAPAMIL SR 120 MG TABLET.ER. PO (08:43)
[2017-12-09] MEDS: DOCUSATE SODIUM 100 MG CAPSULE. PO (08:43)
[2017-12-09] MEDS: ASPIRIN ENTERIC COATED 81 MG TABLET.DR. PO (08:43)
[2017-12-09] MEDS: CHOLECALCIFEROL (VITAMIN D3) 5,000 UNIT CAPSULE PO (08:44)
[2017-12-09] MEDS: predniSONE 10 MG TABLET PO (08:44)
[2017-12-09] MEDS: CALCIUM CARBONATE 500 MG TABLET PO (08:44)
[2017-12-09] MEDS: ISOSORBIDE MONONITRATE ER 30 MG TAB.ER.24H PO (08:44)
[2017-12-09] MEDS: LIDOCAINE (700MG/PATCH) PATCH. TD (08:44)
== END 2017-12-09 14:48 | disposition hospice, home (50) | DRG 551 ==
LOC: ER 19:53 → 4 NORTH 22:30
DX: M54.16 Radiculopathy, lumbar region (principal); G93.41 Metabolic encephalopathy; I50.43 Acute on chronic combined systolic (congestive) and diastolic (congestive) heart failure; E44.0 Moderate protein-calorie malnutrition; J96.12 Chronic respiratory failure with hypercapnia; K29.71 Gastritis, unspecified, with bleeding; C94.6 Myelodysplastic disease, not elsewhere classified; Z68.1 Body mass index [BMI] 19.9 or less, adult; I11.0 Hypertensive heart disease with heart failure; M54.30 Sciatica, unspecified side; B35.1 Tinea unguium; D63.8 Anemia in other chronic diseases classified elsewhere; E03.9 Hypothyroidism, unspecified; E78.5 Hyperlipidemia, unspecified; E83.51 Hypocalcemia; F17.200 Nicotine dependence, unspecified, uncomplicated; G89.29 Other chronic pain; H35.30 Unspecified macular degeneration; I25.10 Atherosclerotic heart disease of native coronary artery without angina pectoris; I71.4 Abdominal aortic aneurysm, without rupture; I73.9 Peripheral vascular disease, unspecified; J44.9 Chronic obstructive pulmonary disease, unspecified; K21.9 Gastro-esophageal reflux disease without esophagitis; L60.2 Onychogryphosis; Z51.5 Encounter for palliative care; F41.9 Anxiety disorder, unspecified; M16.10 Unilateral primary osteoarthritis, unspecified hip; R13.10 Dysphagia, unspecified; M17.0 Bilateral primary osteoarthritis of knee; Z82.49 Family history of ischemic heart disease and other diseases of the circulatory system; Z87.01 Personal history of pneumonia (recurrent); Z86.73 Personal history of transient ischemic attack (TIA), and cerebral infarction without residual deficits; Z90.710 Acquired absence of both cervix and uterus; Z95.5 Presence of coronary angioplasty implant and graft; Z87.440 Personal history of urinary (tract) infections; Z88.2 Allergy status to sulfonamides; Z88.8 Allergy status to other drugs, medicaments and biological substances; Z66 Do not resuscitate
CPT/HCPCS: 36415; 70450; 70553; 71045; 72072; 72100; 76770; 80048; 80053; 80061; 82306; 82553; 82607; 82728; 82746; 83540; 83550; 83880; 84443; 84484; 85007; 85025; 85045; 85610; 85730; 92526-GN; 92610-GN; 93005; 93306; 93926; 93970; 94640; 94760; 96374; 96375; 97110-GO; 97116-GP; 97162-GP; 97166-GO; 97530-GO; 97530-GP; 97535-GO; 99285; 99285-25; A9585; J0360; J1756; J1940; J2405; J2550; J3010; J3490; J7050; J7512; J7620